=== PATIENT | male | born 1960 | race Caucasian/White ===

== ENCOUNTER 2019-03-25 16:44 | Observation (INO) | payer MEDICAID, SELFPAY ==
[2019-03-25 16:45] VITALS: BP 159/116; PULSE 112; RESP 17; TEMP 36.9; O2SAT 96; BMI 28.1
--- NOTE | 2019-03-25 17:16 | CT_ITS ---
STUDY: CT ABDOMEN AND PELVIS WITHOUT CONTRAST REASON FOR EXAM: Male, 58 years old. Lower GI bleed x3 days. RADIATION DOSAGE (If Supplied By Facility): CTDIvol = ( 14.79 ) mGy, DLP = ( 1030.08 ) mGycm TECHNIQUE: Transaxial images were obtained from the dome of the diaphragm to the symphysis pubis without oral contrast, and without intravenous contrast. Sagittal and coronal images were reconstructed. Individualized dose optimization techniques were used for this CT. COMPARISON: None. FINDINGS: There is a 5.4 mm nodule within the right lower lobe. The visualized portions of the heart are within normal limits. There is decreased attenuation of the liver consistent with steatosis. Normal gallbladder and extrahepatic biliary system. Normal spleen. Normal pancreas. Normal bilateral adrenal glands. There are punctate calcification within the kidneys which may reflect underlying nonobstructing calculi and/or vascular calcifications. Normal visualized stomach. There appears to be a duodenal diverticulum. There is circumferential wall thickening of the colon. There are scattered diverticula throughout the colon visualized. The appendix is visualized and appears normal. There is diffuse atherosclerotic calcification of the abdominal aorta, without a demonstrated aneurysm. Normal inferior vena cava. Normal retroperitoneum. Normal urinary bladder. There is a small umbilical hernia containing fat. There are diffuse degenerative changes of the visualized lumbar spine. There are postsurgical changes from L4 through L5. There is a grade 1 anterior spondylolisthesis of L3 on L4. CT/Abdomen/Pelvis W IV Cont ONLY IMPRESSION: Circumferential wall thickening of the sigmoid colon, the differential includes a neoplastic process and/or inflammation. Colonic diverticulosis. Atherosclerosis. Fatty infiltration of the liver. Fat-containing umbilical hernia. 5.4 mm right lower lobe pulmonary nodule. Electronically Signed: Kenisha Patel MD at 18:48 EST Tel , Service support ,
--- NOTE | 2019-03-25 17:17 | ED.DCSUM_ITS ---
History of Present Illness Chief Complaint: GI Bleed Informant: Patient - Abdominal Pain/Flank Pain Onset: Today Context: Sudden Onset Timing: Intermittent - x3 Location: - - no pain. rectal bleeding. Current Severity: Gone Maximum Severity: Severe - bleeding Worsened by: Nothing Relieved by: Nothing - Nausea/Vomiting/Emesis GI Symptom: Negative for: Nausea, Vomiting - Diarrhea/Melena/Hematochezia GI Symptom: Hematochezia. Negative for: Diarrhea, Melena Stool Quality: Maroon Severity: Severe Episodes: 3 Associated Symptoms: - - fatigue. no lightheadedness/near-syncope.. Negative for: Dysuria, Frequency, Hematuria, Urgency Narrative: Patient does not see a physician and has never had a colonoscopy. He presents with 3 episodes of large amounts of bright red blood per rectum today and feeling malaised. Denies any abdominal pain, nausea, vomiting, chest discomfort, dyspnea. No recent injuries. No history of any abdominal surgeries. Prior similar symptoms: No Past Medical History - Allergies and Home Meds Allergies/Adverse Reactions: Allergies No Known Allergies Allergy (Verified 03/25/19 16:45) Primary Care Physician: Care Physician,No Primary [Primary Care Provider] - Surgical History: - - Knee arthroscopy. Back. Lives: Alone Smoking Status: Current every day smoker Drugs: None Review of Systems General: Reports: Malaise. Denies: Chills, Fever, Sweats Eyes: Denies: Visual changes - bilaterally, Diplopia ENT: Denies: Rhinorrhea, Sore throat Cardiovascular: Denies: Chest pain, Palpitations Respiratory: Denies: Dyspnea, Cough, Dyspnea on exertion Gastrointestinal: Reports: Hematochezia. Denies: Abdominal pain, Nausea, Vomiting, Diarrhea, Melena Genitourinary: Denies: Dysuria, Hematuria, Frequency Musculoskeletal: Denies: Neck pain, Back pain, Extremity Pain Skin: Denies: Rash, Wounds Neurological: Denies: Headache, Weakness, Numbness Physical Exam Vital Signs/Narrative: Vital Signs Temp Pulse Resp BP Pulse Ox 03/25/19 16:45 98.5 F 112 H 17 159/116 H 96 Inital Vital Signs reviewed: Yes General: Well nourished, Well developed, No Acute Distress Head: Normocephalic, Atraumatic Eyes: Perrl, EOMI ENT: Moist mucous membranes, No rhinorrhea Neck: Supple, Nontender Cardiovascular: Regular rate, Regular rhythm, No murmurs, Tachycardia Respiratory: No distress, CTA bilaterally, Chest nontender Abdomen: Soft, Nontender, Nondistended, Normal bowel sounds, No masses. Negative for: Pulsatile mass Rectal: Nontender, - - trace blood present on exam, no pooling Back: Nontender, Normal Inspection. Negative for: CVA tenderness Extremities: Nontender, No edema Skin: Normal color, No rash, No Trauma Neurological: Alert, Oriented x3, Cranial nerves II-XII grossly intact, Normal Strength, Normal Sensation, Normal Gait Psychological: Normal affect, Normal Mood Diagnostic/Tx/Re-eval Impressions Abdomen/Pelvis CT 03/25/19 17:16 IMPRESSION: Circumferential wall thickening of the sigmoid colon, the differential includes a neoplastic process and/or inflammation. Colonic diverticulosis. Atherosclerosis. Fatty infiltration of the liver. Fat-containing umbilical hernia. 5.4 mm right lower lobe pulmonary nodule. Electronically Signed: Kenisha Patel MD at 18:48 EST Tel , Service support , 03/25/19 17:16 Abdomen/Pelvis W IV Cont ONLY [CT] Stat Laboratory Results 03/25/19 03/25/19 03/25/19 17:10 17:10 17:10 WBC 7.0 RBC 4.95 Hgb 17.5 H Hct 48.8 MCV 98.6 H MCH 35.4 H MCHC 35.9 RDW Std Deviation 50.7 H RDW Coeff of Harinder 13.8 Plt Count 319 MPV 8.7 Immature Gran % (Auto) 0.600 Neut % (Auto) 72.1 H Lymph % (Auto) 17.4 L [place] % (Auto) 7.2 Eos % (Auto) 1.7 Baso % (Auto) 1.0 Absolute Neuts (auto) 5.0 Absolute Lymphs (auto) 1.21 Nucleated RBC % 0 Sodium 143 Potassium 2.4 L* Chloride 103 Carbon Dioxide 31.0 Anion Gap 9 BUN 7 Creatinine 0.62 L Estim Creat Clear Calc 128.29 Est GFR (MDRD) Af Amer 172 Est GFR (MDRD) Non-Af 142 BUN/Creatinine Ratio 11.3 Glucose 109 H Calcium 8.5 Total Bilirubin 0.60 AST 30 ALT 18 Alkaline Phosphatase 82 Total Protein 6.9 Albumin 3.3 Globulin 3.6 Albumin/Globulin Ratio 0.9 Blood Type O POSITIVE Antibody Screen NEGATIVE - Medical Decision Making On exam patient is not pooling or actively bleeding. He had a couple episodes of going to the bathroom and having more bright red blood per rectum while in the emergency department. However his hemoglobin is in the 17s, he is still tachycardic. He is very hypokalemic this may be explaining his fatigue which he states is been present for days to a week or so, he is not exactly sure but it has been very gradual. CT shows some type of process in the sigmoid colon creating the appearance of wall thickening. Unable to rule out malignancy. I discussed with Dr. Saavedra who was on-call for surgery since we do not have gastroenterology, she is agreeable to see the patient in the morning. Hospitalist is agreeable to admit. Potassium replacement begun. ED Disposition - Plan for ED Patient: Disposition: Acute Care [facility] Diagnosis: Lower GI bleeding, Hypokalemia
[2019-03-25] MEDS: 0.9% Normal Saline 1,000 ML 1000 ML IV (17:34)
[2019-03-25 17:41] LABS: Absolute Lymphocyte Count 1.21 X10^3/uL (0.83-4.51); Basophil# 0.07 X10^3/uL; Eosinophil# 0.12 X10^3/uL; Eosinophils% 1.7 % (0-5); Hematocrit 48.8 % (40-54); Hemoglobin 17.5 g/dL (13.0-16.5); Lymphocyte # 1.21 X10^3/ul (4.0); Lymphocyte % 17.4 % (19-41); Mean Corp Hgb Conc 35.9 g/dL (32-36); Mean Corpuscular Hgb 35.4 pg (27.0-32.0); Mean Corpuscular Volume 98.6 fL (80-94); Mean Platelet Vol. 8.7 fl (6.2-12.0); Monocyte% 7.2 % (0-10); NRBC Flagged by Analyzer 0 % (0-5); Neutrophil # 5.03 X10^3/uL (2.7-7.7); Neutrophil % 72.1 % (47-70); Platelet Count 319 K/mm3 (150-450); RBC Distribution Width CV 13.8 % (11.6-14.6); RBC Distribution Width SD 50.7 fl (35.1-43.9); Red Blood Count 4.95 M/mm3 (4.6-6.2)
[2019-03-25 18:10] LABS: ALB/GLOB Ratio 0.9 RATIO (0.9-2.4); AST(SGOT) 30 U/L (15-37); Alanine Aminotransfer ALT/SGPT 18 U/L (16-61); Albumin, Serum 3.3 g/dL (3.2-5.0); Alkaline Phosphatase 82 U/L (45-117); Anion Gap 9 (5-15); BUN 7 mg/dL (7-18); BUN/Creat Ratio 11.3 RATIO (10-20); Calcium,Total 8.5 mg/dL (8.5-10.1); Chloride 103 mmol/L (98-107); Creatinine, Serum 0.62 mg/dL (0.70-1.30); EST Glomerular Filtration Rate 142 mL/min (>60); Est Glom Filt Rate - Afr Amer 172 mL/min (>60); Estimated Creatinine Clearance 128.29 ml/min; Globulin 3.6 g/dL (2.2-4.2); Glucose 109 mg/dL (74-106); Potassium 2.4 mmol/L (3.5-5.1); Protein, Total 6.9 g/dL (6.4-8.2); Sodium Level 143 mmol/L (136-145)
--- NOTE | 2019-03-25 19:14 | PCM.HP.STD ---
Problem List (1) BRBPR (bright red blood per rectum) Status: Acute History of Present Illness Date of Admission: 03/25/19 Chief Complaint: Bright red blood per rectum. The patient is a 58 year old M with a significant history of chronic back pain; alcoholism and GERD who presented to emergency department with bright red blood per rectum. At the time of examination patient had had 5 bloody bowel movement. He denies any abdominal pain; nausea; vomiting or loss of appetite. He reports fatigue. However he denies any lightheadedness or dizziness. Emergent department doctor reported that rectal examination showed gross blood. Emergency Department doctor discussed the case with Dr. Fozia Saavedra, general surgeon who agreed to follow patient. Of note patient reports taking about 6 tablets of aspirin daily because of back pain Past Medical History Medical History: Medical History (Last Reviewed 03/25/19 @ 20:35 by Clarence Dorado MD) Chronic back pain M54.9, G89.29 Allergies No Known Allergies Allergy (Verified 03/25/19 16:45) Home Medications: Ambulatory Orders Medication Instructions Recorded Aspirin 325 mg PO DAILY 03/25/19 Ranitidine [Zantac] 150 mg PO DAILY PRN 03/25/19 Surgical History: - - Knee arthroscopy. Back. Lives: Alone Smoking Status: Current every day smoker Alcohol: Heavy Drugs: None - *Family History Maternal History Items: Diabetes Paternal History Items: Cancer - His father had lung cancer Review of Systems Constitutional: Reports: Fatigue. Denies: Chills, Fever, Weight Change HEENT: Denies: Head Aches, Sinus Congestion, Sinus Drainage Cardiovascular: Denies: Chest Pain, Palpitations Respiratory: Denies: Cough, Shortness of breath at rest, Sputum production Gastrointestinal: Reports: Hematochezia. Denies: Abdominal Pain, Nausea, Vomiting Genitourinary: Denies: Dysuria Musculoskeletal: Denies: Joint Pain, Joint Tenderness Skin: Denies: Rash, Wounds Neurological: Denies: Numbness, Tingling, Focal weakness Psychiatric: Denies: Anxiety, Depression, Homicidal Ideations, Suicidal Ideations Hematologic/ Lymphatic: Denies: Easy Bruising, Easy Bleeding VTE Information - Inpt Only VTE Present on Admission: No VTE Mechan Device Prophylaxis: SCD's VTE Pharm Prophylaxis ordered?: No Patient Problems: Active and Suspected Problems (Last Reviewed 03/25/19 @ 20:35 by Clarence Dorado MD) Lower GI bleeding (Acute) Hypokalemia (Acute) BRBPR (bright red blood per rectum) (Acute) - Physical Exam Vitals/I&O's: Vital Signs Temp Pulse Resp BP Pulse Ox 98.5 F 112 H 17 159/116 H 96 03/25/19 16:45 03/25/19 16:45 03/25/19 16:45 03/25/19 16:45 03/25/19 16:45 Oxygen Delivery Method Room Air Weight: 86.4 kg Body Mass Index (BMI) 28.1 General: Alert, Oriented x3, Cooperative HEENT: Atraumatic, PERRLA, EOMI, Normocephalic Neck: Supple, No JVD, Negative Carotid Bruits Lungs: Clear to auscultation, Normal air movement Cardiovascular: Regular rate, Normal S1, Normal S2, No murmurs Abdomen: Bowel Sounds Present, Soft, Non Tender, - - Emergency department doctor reports gross blood on rectal examination. Extremities: No edema, Capillary Refill Less than 3 Seconds Skin: No rashes, No breakdown Musculoskeletal: No Tenderness to Palpation of Joints or Extremities Neurological: Cranial nerves II-XII grossly intact, - - Tremors. Psych/Mental Status: Normal Affect, Appropriate Laboratory Results 03/25/19 17:10: WBC 7.0, RBC 4.95, Hgb 17.5 H, Hct 48.8, MCV 98.6 H, MCH 35.4 H, MCHC 35.9, RDW Std Deviation 50.7 H, RDW Coeff of Harinder 13.8, Plt Count 319, MPV 8.7, Immature Gran % (Auto) 0.600, Neut % (Auto) 72.1 H, Lymph % (Auto) 17.4 L, [place] % (Auto) 7.2, Eos % (Auto) 1.7, Baso % (Auto) 1.0, Absolute Neuts (auto) 5.0, Absolute Lymphs (auto) 1.21, Nucleated RBC % 0 03/25/19 17:10: Sodium 143, Potassium 2.4 L*, Chloride 103, Carbon Dioxide 31.0, Anion Gap 9, BUN 7, Creatinine 0.62 L, Estim Creat Clear Calc 128.29, Est GFR (MDRD) Af Amer 172, Est GFR (MDRD) Non-Af 142, BUN/Creatinine Ratio 11.3, Glucose 109 H, Calcium 8.5, Total Bilirubin 0.60, AST 30, ALT 18, Alkaline Phosphatase 82, Total Protein 6.9, Albumin 3.3, Globulin 3.6, Albumin/Globulin Ratio 0.9 03/25/19 17:10: Blood Type O POSITIVE, Antibody Screen NEGATIVE Current Medications Potassium Chloride () 10 meq in 100 mls @ 100 mls/hr IV BOLUS NOW STA Stop: 03/25/19 19:27 Assessment/Plan All Active Problems (Last Reviewed 03/25/19 @ 20:35 by Clarence Dorado MD) Lower GI bleeding (Acute) Hypokalemia (Acute) BRBPR (bright red blood per rectum) (Acute) The patient is a 58 year old M with a significant history of chronic back pain; alcoholism and GERD who presented to emergency department with bright red blood per rectum consistent with acute GI bleed. Acute GI bleed Likely lower GI bleed as CT of his abdomen and pelvis showed colonic diverticulosis and circumferential wall thickening concerning for neoplastic process and or/inflammation. His BUN is not elevated as is typical of upper GI bleed and his blood pressure is stable. However because of his history of aspirin use cannot rule out upper GI bleed entirely. We will put patient on Protonix IV twice daily. More likely lower GI bleed with aspirin accentuating the bleeding. Received IV fluid bolus in the emergency department. We will continue IV hydration. Avoid antiplatelets and antithrombotics. Note his hemoglobin on admission was 17.5. We will get serial H&H's and see what his hemoglobin becomes with equilibration. Hypokalemia Etiology is unclear but suspect alcoholism. Will check magnesium level. Potassium chloride 10 mEq was ordered at the emergency department. We will give additional 60 mEq p.o.; and additional 30 mEq IV. Trend BMP. Check urine potassium. Alcoholism Reportedly patient drinks half of a fifth of bourbon about 5 times in a week. Tremulous at the emergency department. We will put patient on CIWA protocol with Ativan. Patient is being kept n.p.o. after midnight for possible endoscopic procedures for his bright red blood per rectum. Will order folic acid IV daily. Multivitamin IV x1 ordered. IV thiamine daily Pulmonary nodule CT of abdomen and pelvis showed a subcentimeter pulmonary nodule. Of note patient is a smoker. Discussed with patient. Recommend longitudinal follow-up. DVT Prophylaxis SCD Code Visit Inpatient E&M: 83433 Init Hosp L3
[2019-03-25] MEDS: Potassium Chloride 10mEq/100mL 10 MEQ/100 ML IV.SOLN. 100 MEQ IV BOLUS ×3 (19:15→23:17)
[2019-03-25 19:23] VITALS: BMI 28.1
[2019-03-25 19:23] LABS: Bacteria 0 SEEN /hpf (None Seen); Mucous, Urine 0 SEEN /hpf (<or=2+); Red Blood Cells-Urine 0 SEEN /hpf (0-5); Squamous Epithelial Cells - UA 0 SEEN /hpf (0-5); White Blood Cells 0 SEEN /hpf (0-5)
[2019-03-25 19:49] VITALS: BMI 27.8
[2019-03-25 19:55] LABS: Color, Urine Yellow (Yellow); Glucose, Dipstick Normal (Normal); Ketone-Dipstick 15 mg/dl (Negative); Leukocyte Esterase-Dipstick Negative /ul (Negative); Nitrite-Dipstick Negative (Negative); Occult Blood-Urine Negative /ul (Negative); Protein-Dipstick Negative (Negative); Specific Gravity, Urine 1.005 (1.002-1.030); Urine Bilirubin Dipstick Negative (Negative); Urine Clarity Clear (Clear); Urine Urobilinogen Normal (Normal)
[2019-03-25 20:14] VITALS: BP 151/109; PULSE 94; RESP 20; TEMP 36.9; O2SAT 95
[2019-03-25 20:19] VITALS: BP 180/108
[2019-03-25 20:39] LABS: Magnesium 1.6 mg/dL (1.6-2.6)
[2019-03-25 20:45] VITALS: PULSE 99
[2019-03-25] MEDS: 0.9% Saline Lock 10 ML Syringe IV (21:33)
[2019-03-25] MEDS: 0.9% Normal Saline 1,000 ML 100 ML IV (21:34)
[2019-03-25 21:53] LABS: Hematocrit 42.7 % (40-54); Hemoglobin 15.4 g/dL (13.0-16.5)
[2019-03-26] VITALS (10 sets, daily range): BP systolic 137–178; BP diastolic 96–113; PULSE 70–89; RESP 16–20; TEMP 36.7–36.9; O2SAT 94–96
[2019-03-26] MEDS: Potassium Chloride 10mEq/100mL 10 MEQ/100 ML IV.SOLN. 100 MEQ IV BOLUS ×5 (00:31→09:56)
[2019-03-26] MEDS: 0.9% Saline Lock 10 ML Syringe IV ×2 (03:32→12:20)
[2019-03-26] MEDS: Labetalol 20 MG/4 ML Vial 10 MG IV (03:32)
[2019-03-26 03:58] LABS: Hematocrit 41.7 % (40-54); Hemoglobin 14.6 g/dL (13.0-16.5)
[2019-03-26 04:07] LABS: International Normalized Ratio 1.1; Prothrombin Time (Protime)PT. 13.7 SECONDS (11.7-14.9)
[2019-03-26 04:12] LABS: Anion Gap 7 (5-15); BUN 4 mg/dL (7-18); Calcium,Total 7.5 mg/dL (8.5-10.1); Chloride 105 mmol/L (98-107); Creatinine, Serum 0.57 mg/dL (0.70-1.30); EST Glomerular Filtration Rate 154 mL/min (>60); Est Glom Filt Rate - Afr Amer 186 mL/min (>60); Estimated Creatinine Clearance 139.54 ml/min; Glucose 91 mg/dL (74-106); Sodium Level 145 mmol/L (136-145)
[2019-03-26] MEDS: Magnesium Sulfate 4gm/100mL 4 GM/100 ML IV.SOLN. IV (05:25)
[2019-03-26] MEDS: Potassium Chloride 40 MEQ in 0.9% Normal Saline 1,000 ML 100 MEQ IV (05:33)
[2019-03-26] MEDS: Glycerin/Hypromellose/PEG400 15 ml Bottle 1 DRP EACH EYE ×2 (06:02→08:05)
--- NOTE | 2019-03-26 10:05 | NURSING ---
Surgeon, in to see pt, daughter bedside during conversation
--- NOTE | 2019-03-26 10:14 | PCM.CONS.B ---
- Consult Date of Consult: 03/26/19 - Reason for Consult Chief Complaint: rectal bleeding History of Present Illness: 58 y/o WM presents with rectal bleeding - sudden onset yesterday - states no previous such signs/symptoms. Denies previous colonoscopy. Noted dark and bright red blood per rectum, multiple episodes yesterday. Only one since admission. Hgb 17.5 - 15.4 - 14.6 during hospitalization and patient has remained hemodynamically stable since admission. Has been taking 3-4 full aspirins per day for chronic back pain. States that he takes an OTC antacid occasionally. He had history of acid indigestion and dyspepsia, but he states that he has had no symptoms recently. Also drinks half a bottle of hard liquor per day. Also TOB user. Denies family history of colon cancer. Has no family physician Past Medical History: denies major medical illnesses Past Surgical History: cervical vertebral surgery lumbar vertebral surgery right knee surgery Medications: as above, denies taking chronic medications Allergies: Has no known drug allergies Social history: TOB use positive ETOH use heavy daily use Denies illicit drug use Review of Systems: General - denies fevers, denies weight loss, denies anorexia Cardiovascular denies chest pain, denies history of heart attack Pulmonary denies shortness of breath, denies coughing up blood Gastrointestinal as per HPI, had history of acid indigestion and heartburn but none recently Neurological denies seizures, denies history of stroke Genitourinary denies burning with urination, denies blood in urine Hematological denies spontaneous/prolonged bleeding Skin denies open non healing wounds Musculoskeletal has chronic back pain Endocrine denies diabetes Psychological denies hallucinations Physical examination: Vital signs Temp 98.3F RR 16 BP 154/105 HR 78 General WD/WN WM in no apparent distress, alert and oriented, not septic appearing HEENT Normocephalic. EOM intact with sclera clear and no icterus noted. Neck is supple with no jugular venous distention noted. Trachea is midline. Lungs normal breath sounds. No rales/rhonchi/wheezing noted. No labored breathing noted, such as retractions. No cough heard. Heart normal heart sounds. No rubs/clicks/murmurs noted. Normal size and location by auscultation. Abdomen soft and benign and protuberant Normal bowel sounds. Difficult to determine if any masses due to body habitus Extremities no calf tenderness noted. No pitting edema noted. Genitourinary/Rectal deferred Skin normal skin integrity. Neurological gait normal, no focal deficits noted. Psychological normal affect, patient is calm and appropriate Impression: rectal bleeding TOB use, ETOH use, aspirin use - heavy use Discussion/Plan: I have discussed the above with the patient and his daughter who is present with him. He is presently hemodynamically stable. He has had no repeated episodes of rectal bleeding since being hospitalized. Repeated CBC reveals that he is not anemic. Therefore GI workup can be done as outpatient. He will require upper and lower endoscopy. He can follow up in my clinic as an outpatient to set this up. Patient can be discharged - in my opinion Recommend discontinuation of aspirin. Recommend cessation of TOB use and ETOH use Prescription for PPI to be given by hospitalist.
--- NOTE | 2019-03-26 11:07 | DCINST_ITS ---
- Discharge Diagnoses Current Active Problems: Current Active and Chronic Problems (Last Reviewed 03/25/19 @ 20:35 by Clarence Dorado MD) Lower GI bleeding (Acute) Hypokalemia (Acute) BRBPR (bright red blood per rectum) (Acute) You will use the following diet at home:: Regular Your food should be the consistency of: Regular Discharge Activity: May Not Drive Call your doctor if you observe: Fever of 101 or Higher, Numbness or Tingling, Inability to urinate, Inability to have a bowel movement, Shortness of breath, Dizziness, Fainting spells, Swelling in the ankles, Chest pain, Increased palpitations (irregular heartbeat), Calf discomfort, Uncontrolled pain Allergies/Adverse Reactions: Allergies No Known Allergies Allergy (Verified 03/25/19 16:45) Medications to take at Discharge Folic Acid 1 mg PO DAILY #30 tab 03/26/19 Pantoprazole Sodium [Protonix] 40 mg PO BID #60 tab 03/26/19 Potassium Chloride [K-Dur] 20 meq PO DAILY #3 tab 03/26/19 Thiamine HCl [B-1] 100 mg PO DAILY #30 tab 03/26/19 traMADol [Ultram] 50 mg PO Q4H PRN PRN #14 tab 03/26/19 The following prescriptions were given: Thiamine HCl [B-1] 100 mg PO DAILY #30 tab Transmission Status: Received by [address] Folic Acid 1 mg PO DAILY #30 tab Transmission Status: Received by [address] Potassium Chloride [K-Dur] 20 meq PO DAILY #3 tab Transmission Status: Pending to [address] Pantoprazole Sodium [Protonix] 40 mg PO BID #60 tab Transmission Status: Received by [address] traMADol [Ultram] 50 mg PO Q4H PRN PRN #14 tab PRN Reason: severe pain Prescription Printed Orders to be completed after discharge: Basic Metabolic Profile (BMP) Time Frame: 03/28/19, Location: Laboratory Primary Care Physician: Care Physician,No Primary [Primary Care Provider] - Please follow up with your Primary Care Physician in: 1-2 week Test Results: Test results from this visit will be discussed in further detail at your follow- up appointment, if applicable. Please Follow Up With: Fozia Saavedra MD - Follow-up BMP on 03/28/2019 for When: on 03/28/19 to scheule EGD and colonoscopy.
--- NOTE | 2019-03-26 11:11 | DS.PCM_ITS ---
Discharge Date and Diagnosis - Problem List Patient Problems: Active and Suspected Problems (Last Reviewed 03/25/19 @ 20:35 by Clarence Dorado MD) Lower GI bleeding (Acute) Hypokalemia (Acute) BRBPR (bright red blood per rectum) (Acute) Date of Admission: 03/25/19 Date of Discharge: 03/26/19 - Primary Discharge Diagnosis Active and Suspected Problems (Last Reviewed 03/25/19 @ 20:35 by Clarence Dorado MD) Lower GI bleeding (Acute) Hypokalemia (Acute) BRBPR (bright red blood per rectum) (Acute) Hospital Course and Treatment Summary of Care Provided: [] The patient is a 58 year old M with a significant history of chronic back pain on aspirin; alcoholism and GERD who presented to emergency department with bright red blood per rectum consistent with acute GI bleed. Patient is also chronic alcoholic on her bottle of whiskey daily for many years therefore concern for upper GI bleed with rapid transit. Patient also has chronic symptoms of dyspepsia and GERD and was taking poge-gqh-fjikwxf Maalox since teenage. Patient admitting H&H was 17.5/48.8 suggestive of hemoconcentration patient is chronic smoker therefore concern of possible COPD. Patient also hypokalemic. K2.4. CT abdomen was done and shows circumferential wall thickening of sigmoid colon which raises suspicion of inflammation or neoplastic process along with colonic diverticulosis. Denies family history of colon cancer patient was admitted in PCU. Was seen by surgeon Dr. Saavedra, He had subsequent H&H which was a stable 15.4/42.7 and 15.6/44.4. Potassium was corrected to 3.1. Magnesium normal. Patient was started on IV Protonix every 12 hourly. Surgeon thinks he is GI work-up can be done as an outpatient. Will require upper and lower endoscopy. Aspirin discontinued. CT abdomen pelvis also shows 5.4 mm right lower lobe pulmonary nodule. Patient is chronic cigarette smoker and advised quitting smoking. Patient needs outpatient PFT and pulmonary clinic visit for this further green rveillance of pulmonary nodule. Patient might have COPD for history of prolonged smoking. Patient also has chronic back pain for which she was taking aspirin which is discontinued. Patient had 1 dose of oxycodone 5 mg inpatient. Patient is being discharged home on Protonix 40 mg twice daily, tramadol 50 mill grams every 4 hourly as needed, total of 14 tablets for chronic back and neck pain, thiamine, folic acid and caregiver. Discharge diagnosis Acute GI bleed possible upper GI bleed Possible gastritis/peptic ulcer with GERD Hypokalemia Chronic alcoholism Right lower lobe pulmonary nodule: Pulmonary nodule was discussed with the patient and advised follow-up with pulmonary clinic. Chronic neck and back pain Discharge medication reconciliation done. Discharge follow-up instructions comp leted. Discharge process discussed with the patient and all questions were answered to patient's satisfaction. Follow-up with surgeon Dr. Saavedra early next week. Follow with pulmonary clinic in about 2 weeks. Total time spent, exact 35 minutes on discharge meds reconciliation, examination, review of imaging and blood test and discussion with the patient on follow-up instructions. Clinical Impression(s) from Imaging Studies Abdomen/Pelvis CT 03/25/19 17:16 IMPRESSION: Circumferential wall thickening of the sigmoid colon, the differential includes a neoplastic process and/or inflammation. Colonic diverticulosis. Atherosclerosis. Fatty infiltration of the liver. Fat-containing umbilical hernia. 5.4 mm right lower lobe pulmonary nodule. Laboratory Results 03/25/19 17:10: WBC 7.0, RBC 4.95, Hgb 17.5 H, Hct 48.8, MCV 98.6 H, MCH 35.4 H, MCHC 35.9, RDW Std Deviation 50.7 H, RDW Coeff of Harinder 13.8, Plt Count 319, MPV 8.7, Immature Gran % (Auto) 0.600, Neut % (Auto) 72.1 H, Lymph % (Auto) 17.4 L, Roseau % (Auto) 7.2, Eos % (Auto) 1.7, Baso % (Auto) 1.0, Absolute Neuts (auto) 5.0, Absolute Lymphs (auto) 1.21, Nucleated RBC % 0 03/25/19 17:10: Sodium 143, Potassium 2.4 L*, Chloride 103, Carbon Dioxide 31.0, Anion Gap 9, BUN 7, Creatinine 0.62 L, Estim Creat Clear Calc 128.29, Est GFR (MDRD) Af Amer 172, Est GFR (MDRD) Non-Af 142, BUN/Creatinine Ratio 11.3, Glucose 109 H, Calcium 8.5, Total Bilirubin 0.60, AST 30, ALT 18, Alkaline Phosphatase 82, Total Protein 6.9, Albumin 3.3, Globulin 3.6, Albumin/Globulin Ratio 0.9 03/26/19 03:46: Sodium 145, Potassium 3.0 L, Chloride 105, Carbon Dioxide 33.0 H , Anion Gap 7, BUN 4 L, Creatinine 0.57 L, Estim Creat Clear Calc 139.54, Est GFR (MDRD) Af Amer 186, Est GFR (MDRD) Non-Af 154, BUN/Creatinine Ratio 7.0 L, Glucose 91, Calcium 7.5 L 03/26/19 12:16: Sodium 141, Potassium 3.1 L, Chloride 104, Carbon Dioxide 30.0, Anion Gap 7, BUN 3 L, Creatinine 0.52 L, Estim Creat Clear Calc 152.96, Est GFR (MDRD) Af Amer 211, Est GFR (MDRD) Non-Af 175, BUN/Creatinine Ratio 5.8 L, Glucose 95, Calcium 7.6 L 03/26/19 12:16: WBC 5.6, RBC 4.40 L, Hgb 15.6, Hct 44.4, MCV 100.9 H, MCH 35.5 H , MCHC 35.1, RDW Std Deviation 51.8 H, RDW Coeff of Harinder 13.8, Plt Count 281, MPV 8.7, Immature Gran % (Auto) 0.500, Neut % (Auto) 63.2, Lymph % (Auto) 22.6, Roseau % (Auto) 9.0, Eos % (Auto) 3.8, Baso % (Auto) 0.9, Absolute Neuts (auto) 3.5, Absolute Lymphs (auto) 1.26, Nucleated RBC % 0 03/26/19 12:16: Magnesium 2.3 Patient Problems: Active and Suspected Problems (Last Reviewed 03/25/19 @ 20:35 by Clarence Dorado MD) Lower GI bleeding (Acute) Hypokalemia (Acute) BRBPR (bright red blood per rectum) (Acute) Subjective: Seen and examined. Patient has history of chronic back pain and neck pain and he was taking aspirin at home for pain control. Patient also drinks alcohol half bottle of bourbon whiskey for many years. He was admitted with bright red rectal bleed about 4-5 times prior to admission. Overnight this got cleared last one was noticed brownish. Patient is hemodynamically stable - Physical Exam Vitals/I&O's: Vital Signs Temp Pulse Resp BP Pulse Ox 98.0 F 82 16 138/101 H 95 03/26/19 08:08 03/26/19 08:08 03/26/19 08:08 03/26/19 08:08 03/26/19 08:08 Oxygen Delivery Method Room Air Weight: 188 lb 7.924 oz Body Mass Index (BMI) 27.8 Intake and Output for Last 24 Hours 03/24/19 03/25/19 03/26/19 23:59 23:59 23:59 Intake Total 1897.16 / 1897.16 1182.67 / 1182.67 Balance 1897.16 / 1897.16 1182.67 / 1182.67 General: Alert, Oriented x3, Cooperative HEENT: Atraumatic, PERRLA, EOMI, Normocephalic Neck: Supple, No JVD, Negative Carotid Bruits Lungs: Clear to auscultation, Normal air movement Cardiovascular: Regular rate, Regular Rhythm, Normal S1, Normal S2, No murmurs Abdomen: Bowel Sounds Present, Soft, Non Tender, Non-Distended Extremities: No edema, Capillary Refill Less than 3 Seconds Skin: No rashes, No breakdown Musculoskeletal: Arthritic Changes, Tenderness - Tenderness over cervical spine and lumbar spine. Neurological: Cranial nerves II-XII grossly intact, Deep Tendon Reflexes 2+/4 and Symmetrical, Neuro grossly intact, Motor Exam 5/5 strength throughout Psych/Mental Status: Normal Affect, Appropriate Laboratory Results 03/25/19 17:10: WBC 7.0, RBC 4.95, Hgb 17.5 H, Hct 48.8, MCV 98.6 H, MCH 35.4 H, MCHC 35.9, RDW Std Deviation 50.7 H, RDW Coeff of Harinder 13.8, Plt Count 319, MPV 8.7, Immature Gran % (Auto) 0.600, Neut % (Auto) 72.1 H, Lymph % (Auto) 17.4 L, Roseau % (Auto) 7.2, Eos % (Auto) 1.7, Baso % (Auto) 1.0, Absolute Neuts (auto) 5.0, Absolute Lymphs (auto) 1.21, Nucleated RBC % 0 03/25/19 17:10: Sodium 143, Potassium 2.4 L*, Chloride 103, Carbon Dioxide 31.0, Anion Gap 9, BUN 7, Creatinine 0.62 L, Estim Creat Clear Calc 128.29, Est GFR (MDRD) Af Amer 172, Est GFR (MDRD) Non-Af 142, BUN/Creatinine Ratio 11.3, Glucose 109 H, Calcium 8.5, Total Bilirubin 0.60, AST 30, ALT 18, Alkaline Phosphatase 82, Total Protein 6.9, Albumin 3.3, Globulin 3.6, Albumin/Globulin Ratio 0.9 03/25/19 17:10: Blood Type O POSITIVE, Antibody Screen NEGATIVE 03/25/19 17:10: Magnesium 1.6 03/25/19 19:20: Urine Color Yellow, Urine Clarity Clear, Urine pH 7.0, Ur Specific Lamar 1.005, Urine Protein Negative, Urine Glucose (UA) Normal, Urine Ketones 15 H, Urine Occult Blood Negative, Urine Nitrite Negative, Urine Bilirubin Negative, Urine Urobilinogen Normal, Ur Leukocyte Esterase Negative, Urine RBC 0 SEEN, Urine WBC 0 SEEN, Ur Squamous Epith Cells 0 SEEN, Urine Bacteria 0 SEEN, Urine Mucus 0 SEEN 03/25/19 21:44: Hgb 15.4, Hct 42.7 03/26/19 03:46: Hgb 14.6, Hct 41.7 03/26/19 03:46: PT 13.7, INR 1.1 03/26/19 03:46: Sodium 145, Potassium 3.0 L, Chloride 105, Carbon Dioxide 33.0 H , Anion Gap 7, BUN 4 L, Creatinine 0.57 L, Estim Creat Clear Calc 139.54, Est GFR (MDRD) Af Amer 186, Est GFR (MDRD) Non-Af 154, BUN/Creatinine Ratio 7.0 L, Glucose 91, Calcium 7.5 L Current Medications Dextrose (D50w Syringe) 0 gm IV X1 PRN; Protocol PRN Reason: Hypoglycemia Glucagon () 1 mg IM .X1 PRN PRN Reason: Hypoglycemia Pantoprazole Sodium 40 mg/ (Sodium Chloride) 110 mls @ 330 mls/hr IV Q12 CHRISTIANE Last Admin: 03/26/19 10:13 Dose: 330 mls/hr Documented by: Thiamine HCl 200 mg/ Sodium (Chloride) 52 mls @ 200 mls/hr IV DAILY CHRISTIANE Folic Acid 1 mg/ Sodium (Chloride) 50.2 mls @ 200 mls/hr IV DAILY [facility] Sodium Chloride () 500 mls @ 15 mls/hr IV PRN PRN PRN Reason: Blood Transfusion Last Infusion: 03/26/19 06:45 Dose: 0 mls/hr Documented by: Sodium Chloride () 250 mls @ 15 mls/hr IV .[id number] PRN PRN Reason: Saline Flush Potassium Chloride 40 meq/ (Sodium Chloride) 1,020 mls @ 100 mls/hr IV .[id number] CHRISTIANE Stop: 03/26/19 19:34 Last Infusion: 03/26/19 05:45 Dose: 100 mls/hr Documented by: Labetalol HCl (Trandate) 10 mg IV Q4H PRN PRN PRN Reason: SBP > 160 Last Admin: 03/26/19 03:32 Dose: 10 mg Documented by: Lorazepam (Ativan) 2 mg PO Q2H PRN PRN; Protocol PRN Reason: CIWA score > 8 but <15 Lorazepam (Ativan) 2 mg PO UD PRN; Protocol PRN Reason: CIWA score >/=15. Lorazepam (Ativan) 2 mg IV Q2H PRN PRN; Protocol PRN Reason: CIWA score > 8 but <15 Lorazepam (Ativan) 2 mg IV UD PRN; Protocol PRN Reason: CIWA score >/=15. Ondansetron HCl (Zofran) 4 mg IV Q8H PRN PRN PRN Reason: NAUSEA/VOMITING Sodium Chloride () 10 - 40 ml IV UD PRN PRN Reason: SALINE FLUSH Last Admin: 03/26/19 03:32 Dose: 10 ml Documented by: Discharge Activity: May Not Drive Call your doctor if you observe: Fever of 101 or Higher, Numbness or Tingling, Inability to urinate, Inability to have a bowel movement, Shortness of breath, Dizziness, Fainting spells, Swelling in the ankles, Chest pain, Increased palpitations (irregular heartbeat), Calf discomfort, Uncontrolled pain Home Medications: Medications to take at Discharge Folic Acid 1 mg PO DAILY #30 tab 03/26/19 Pantoprazole Sodium [Protonix] 40 mg PO BID #60 tab 03/26/19 Potassium Chloride [K-Dur] 20 meq PO DAILY #3 tab 03/26/19 Thiamine HCl [B-1] 100 mg PO DAILY #30 tab 03/26/19 traMADol [Ultram] 50 mg PO Q4H PRN PRN #14 tab 03/26/19 Following Prescrptions Were Given to Patient: Thiamine HCl [B-1] 100 mg PO DAILY #30 tab Transmission Status: Received by [facility] [place] [address] Folic Acid 1 mg PO DAILY #30 tab Transmission Status: Received by [facility] [address] [place] [address] Potassium Chloride [K-Dur] 20 meq PO DAILY #3 tab Transmission Status: Pending to [address] Pantoprazole Sodium [Protonix] 40 mg PO BID #60 tab Transmission Status: Received by [facility] [place] [address] traMADol [Ultram] 50 mg PO Q4H PRN PRN #14 tab PRN Reason: severe pain Prescription Printed Other Amb Orders: Basic Metabolic Profile (BMP) Time Frame: 03/28/19, Location: Laboratory Primary Care Physician: Care Physician,No Primary [Primary Care Provider] - Please follow up with your Primary Care Physician in: 1-2 week Please Follow Up With: Fozia Saavedra MD When: on 03/28/19 to scheule EGD and colonoscopy Medical Necessity - Tobacco Use Smoking Status: Current every day smoker Tobacco Use: Cigarettes Meaningful Use Info Meaningful Use Diagnoses (Choose all that apply): None applicable Code Visit Inpatient E&M: 630[address] [facility]
[2019-03-26 12:32] LABS: Absolute Lymphocyte Count 1.26 X10^3/uL (0.83-4.51); Absolute Neutrophil Count 3.5 X10^3/uL (2.0-7.7); Basophil# 0.05 X10^3/uL; Basophil% 0.9 % (0-1); Eosinophil# 0.21 X10^3/uL; Eosinophils% 3.8 % (0-5); Hematocrit 44.4 % (40-54); Hemoglobin 15.6 g/dL (13.0-16.5); Lymphocyte # 1.26 X10^3/ul (4.0); Lymphocyte % 22.6 % (19-41); Mean Corp Hgb Conc 35.1 g/dL (32-36); Mean Corpuscular Hgb 35.5 pg (27.0-32.0); Mean Corpuscular Volume 100.9 fL (80-94); Mean Platelet Vol. 8.7 fl (6.2-12.0); NRBC Flagged by Analyzer 0 % (0-5); Neutrophil # 3.52 X10^3/uL (2.7-7.7); Neutrophil % 63.2 % (47-70); Platelet Count 281 K/mm3 (150-450); RBC Distribution Width CV 13.8 % (11.6-14.6); RBC Distribution Width SD 51.8 fl (35.1-43.9); White Blood Count 5.6 K/mm3 (4.4-11.0)
[2019-03-26] MEDS: oxyCODONE 5 MG Tablet PO (12:52)
[2019-03-26 13:02] LABS: Anion Gap 7 (5-15); BUN 3 mg/dL (7-18); BUN/Creat Ratio 5.8 RATIO (10-20); Calcium,Total 7.6 mg/dL (8.5-10.1); Chloride 104 mmol/L (98-107); Creatinine, Serum 0.52 mg/dL (0.70-1.30); EST Glomerular Filtration Rate 175 mL/min (>60); Est Glom Filt Rate - Afr Amer 211 mL/min (>60); Estimated Creatinine Clearance 152.96 ml/min; Glucose 95 mg/dL (74-106); Magnesium 2.3 mg/dL (1.6-2.6); Potassium 3.1 mmol/L (3.5-5.1); Sodium Level 141 mmol/L (136-145)
--- NOTE | 2019-03-26 14:46 | NURSING ---
Reviewed charting of SN Dolores
== END 2019-03-26 14:55 | disposition home or self-care (01) ==
LOC: ED 19:24 → PCU 20:05
PROVIDERS: Admitting Provider Hospitalist; Emergency Provider Emergency Medicine; Referring Provider Hospitalist; Visit Provider Internal Medicine
DX: K92.2 Gastrointestinal hemorrhage, unspecified (principal); E87.6 Hypokalemia; F10.20 Alcohol dependence, uncomplicated; K21.9 Gastro-esophageal reflux disease without esophagitis; Z79.899 Other long term (current) drug therapy; Z79.82 Long term (current) use of aspirin; F17.210 Nicotine dependence, cigarettes, uncomplicated; R91.1 Solitary pulmonary nodule; G89.29 Other chronic pain
CPT/HCPCS: 36415; 74177; 80048; 80053; 81001; 83735; 85014; 85018; 85025; 85610; 86850; 86900; 86901; 96361; 96365; 96366; 96375; 99218; 99282; 99406; J7030; J7040; Q9967; A4216; G0378; J3490

== ENCOUNTER → 2021-10-23 | Outpatient (CLI) | payer MEDICAID, SELFPAY ==
[2021-10-23 16:08] LABS: Lipase 112 U/L (73-393)
== END | disposition home or self-care (01) ==
LOC: LAB 15:54 → LABSPEC 15:55
PROVIDERS: PCP Registered Nurse; Referring Provider Registered Nurse; Visit Provider Registered Nurse
DX: R10.9 Unspecified abdominal pain (principal)
CPT/HCPCS: 83690

== ENCOUNTER 2021-10-25 17:40 | Observation (INO) | payer MEDICAID, SELFPAY ==
[2021-10-25 17:17] VITALS: BMI 24.0
[2021-10-25 17:24] VITALS: BP 141/85; PULSE 100; RESP 16; TEMP 37.3; O2SAT 97
--- NOTE | 2021-10-25 17:45 | EKG12_ITS ---
Test Reason : PRE OP Blood Pressure : / mmHG Vent. Rate : 088 BPM Atrial Rate : 088 BPM P-R Int : 132 ms QRS Dur : 144 ms QT Int : 408 ms P-R-T Axes : 071 218 040 degrees QTc Int : 493 ms Normal sinus rhythm Right bundle branch block Abnormal ECG No previous ECGs available Confirmed by ASHU STEPHENS, ISABEL ([id number]), society editor DORIS DEMPSEY ([id number]) on 10/28/2021 1:09:14 PM Referred By: Donna Lewis Confirmed By:ISABEL WAKEFIELD MD
--- NOTE | 2021-10-25 17:55 | RAD_ITS ---
INDICATION: PRE OP EXAMINATION/TECHNIQUE: X-RAY - XR Chest 1 View COMPARISON: None. FINDINGS: The lungs are clear. The cardiomediastinal silhouette is unremarkable. No pleural effusion or pneumothorax. Degenerative changes of the thoracic spine. RAD/Chest 1 View (Portable) IMPRESSION: No acute radiographic abnormalities. Electronically Signed: Ananda Robertson MD at 18:54 EDT ,
[2021-10-25] MEDS: 0.9% Saline Lock 10 ML Syringe IV ×2 (18:13→22:06)
[2021-10-25] MEDS: 0.9% Normal Saline 1,000 ML 125 ML IV (18:13)
[2021-10-25] MEDS: Morphine 4 MG/ML Syringe IV ×2 (18:14→22:06)
[2021-10-25 20:02] LABS: Absolute Lymphocyte Count 1.52 X10^3/uL (0.83-4.51); Absolute Neutrophil Count 4.9 X10^3/uL (2.0-7.7); Basophil# 0.05 X10^3/uL; Basophil% 0.7 % (0-1); Eosinophil# 0.11 X10^3/uL; Eosinophils% 1.5 % (0-5); Hematocrit 49.3 % (40-54); Lymphocyte # 1.52 X10^3/ul (0.83-4.51); Lymphocyte % 20.9 % (19-41); Mean Corp Hgb Conc 34.5 g/dL (32-36); Mean Corpuscular Hgb 33.7 pg (27.0-32.0); Mean Corpuscular Volume 97.8 fL (80-94); Mean Platelet Vol. 8.5 fl (6.2-12.0); Monocyte# 0.64 X10^3/uL; Monocyte% 8.8 % (0-10); NRBC Flagged by Analyzer 0 % (0-5); Neutrophil # 4.92 X10^3/uL (2.7-7.7); Neutrophil % 67.4 % (47-70); Platelet Count 351 K/mm3 (150-450); RBC Distribution Width CV 12.8 % (11.6-14.6); RBC Distribution Width SD 46.3 fl (35.1-43.9); Red Blood Count 5.04 M/mm3 (4.6-6.2); White Blood Count 7.3 K/mm3 (4.4-11.0)
[2021-10-25 20:15] LABS: Anion Gap 7 (5-15); BUN 14 mg/dL (7-18); BUN/Creat Ratio 18.6 RATIO (10-20); Calcium,Total 9.4 mg/dL (8.5-10.1); Chloride 104 mmol/L (98-107); Creatinine, Serum 0.75 mg/dL (0.70-1.30); EST Glomerular Filtration Rate 112 mL/min (>60); Est Glom Filt Rate - Afr Amer 135 mL/min (>60); Estimated Creatinine Clearance 103.43 ml/min; Glucose 91 mg/dL (74-106); Potassium 4.2 mmol/L (3.5-5.1); Sodium Level 135 mmol/L (136-145)
[2021-10-25 22:00] VITALS: BP 129/85; PULSE 91; RESP 18; TEMP 37.2; O2SAT 95
[2021-10-25 22:11] VITALS: BMI 24.0
[2021-10-26] VITALS (10 sets, daily range): BP systolic 102–141; BP diastolic 63–86; PULSE 66–85; RESP 14–18; TEMP 36.3–37.3; O2SAT 9–96
--- NOTE | 2021-10-26 | IMM_PTH ---
PATIENT: SUREKHA ARCE LOC: MS3 U#:[id number] AGE/SX: 60/M ROOM: [facility] RE10/25/[address]: Dr. Fozia Saavedra MD : 1960 BED: 1 DIS: 10/27/2021 SPEC #: [id number] RECD: 10/29/21 13:35 STATUS: KM REQ #: [id number] LEANA: 10/26/21 00:[address]: Fozia Saavedra DEPT: IMMUNOHISTOCHEMISTRY RECD BY: Ana M Gale ENTERED: 10/29/21 13:39 SP TYPE: IMMUNO OTHR DR: Donna Lewis, LIQUID FERTILIZER SERVICER-C Tissues: A - Gallbladder, NOS B - HERNIA Procedures: MSH2 (add) MLH-1 (add) MSH6 (add) Anti-PMS2 (add) NAPSIN A (add) CD31 (add) CD34 (add) CK20 (add) CK8 (add) BLANCAS-2 (add) KI-67 (add) P53 (add) TTF1 (add) FACTOR VIII (add) Pankeratin (add) GATA3 (add) CDX2 (add) CK7 (initial) S-100 (add) PHYSICIAN & [place] [id number] SPECIMEN INFORMATION: Tissue Source: A ? Gallbladder, B ? Hernia sac Clinical Info: Acute cholecystitis with obstruction Specimen Number: [id number] A2 & B CPT code: 83861 x2, 87040 x21 METHODOLOGY: Deparaffinized sections of prefer/formalin-fixed tissue or PAP/DQ stained slides are incubated with monoclonal/polyclonal antibodies/oligonucleotide probes. Localization is made via biotin free immunoperoxidase method. Appropriate controls are performed and reacted as expected. Results on target cell population are indicated in the following table: RESULTS: ANTIBODY / CLONE RESULT Block A2 GATA3 (L50-823) negative AE1-3 (AE1/AE3/PCK26) positive CK7 (OV-TL12/30) positive CK8 (61nfriL94) positive CK20 (KS20.8) negative CDX2 ([id number]) negative CD31 (SUNG/70A) negative Factor VIII (R Ag) negative CD34 (QBEnd-10) negative S-100 (4C4.9) negative TTF-1 (8G7G3/1) negative Napsin A (Rabbit Polyclonal) negative BLANCAS-2 (SP21) positive MLH-1 (M1) positive MSH2 (25D12) positive MSH6 (44) positive PMS2 (BFQ7173) positive Ki-67 (30-9) positive, 65% P53 (DO-7) positive Block B CK7 (OV-TL12/30) positive CK20 (KS20.8) negative BLANCAS-2 (SP21) positive P53 (DO-7) positive, rare These tests were developed and their performance characteristics determined by [facility]. They may not have been cleared or approved by the U.S. Food and Drug Administration. The FDA has determined that such clearance or approval is not necessary. The above immunohistochemical/dualISH markers are ordered and reviewed by the Pathologist. INTERPRETATION: A. 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 Result of Microsatellite Instability Study: Negative (no loss of mismatch protein; no microsatellite instability detected). B. Hernia sac, herniorrhaphy: Metastatic adenocarcinoma. AM:devyn 10/30/2021 Case has been reviewed in consultation with Dr. Colunga who concurs with the above diagnosis. IDC:[id number]
[2021-10-26] MEDS: 0.9% Normal Saline 1,000 ML 125 ML IV ×3 (06:00→22:10)
[2021-10-26] MEDS: 0.9% Saline Lock 10 ML Syringe IV ×5 (07:35→21:49)
[2021-10-26] MEDS: Morphine 4 MG/ML Syringe IV ×5 (07:35→21:49)
--- NOTE | 2021-10-26 09:55 | NURSING ---
off unit via bed for surgery
[2021-10-26] MEDS: Lidocaine 2% /Epi 1:100 (50ml) 50 ML Vial (10:42)
--- NOTE | 2021-10-26 10:50 | GALL_PTH ---
PATIENT: SUREKHA ARCE LOC: MS3 U#:[id number] AGE/SX: 60/M ROOM: [facility] RE10/25/[address]: Dr. Fozia Saavedra MD : 1960 BED: 1 DIS: 10/27/2021 SPEC #: [id number] RECD: 10/26/21 13:44 STATUS: KM REMary #: [id number] LEANA: 10/26/21 10:[address]: Fozia Saavedra DEPT: SURGICAL PATHOLOGY RECD BY: Rena Archuleta ENTERED: 10/28/21 08:17 SP TYPE: JAVAN HUGHES DR: Donna Lewis, ROXANA Tissues: A - Gallbladder, NOS B - HERNIA Procedures: Surgery Specimen Level II Surgery Specimen Level V HEADER OPERATION: Laparoscopic cholecystectomy, incisional umbilical hernia PRE-OP DIAGNOSIS: Acute cholecystitis with obstruction TISSUE SUBMITTED: A ? Gallbladder, B ? Hernia sac MICROSCOPIC DIAGNOSIS A. 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 See cancer synoptic report below. B. Hernia sac, herniorrhaphy: Invasive adenocarcinoma. See comment. AM:devyn 10/30/2021 COMMENT A & B. Immunohistochemistry ([id number]) supports the above diagnosis. GALLBLADDER CARCINOMA SUMMARY Procedure - simple cholecystectomy Tumor site ? Cannot be determined. Tumor involves entire gallbladder. Histologic type ? adenocarcinoma, favor biliary type Histologic grade ? G3, poorly differentiated Tumor size ? Cannot be determined. Infiltrating carcinoma in all sections of gallbladder measuring 5.5 cm in greatest dimension. Tumor extent ? invades perimuscular connective tissue to hepatic bed and involves the serosal surface. Lymphvascular invasion ? not identified Perineural invasion ? not identified Margins: Margin status in invasive carcinoma ? tumor extends to hepatic bed and serosal surface. Distance from invasive carcinoma to liver parenchymal margin ? cannot be determined. Margins involved by invasive carcinoma ? tumor extends to serosa and hepatic bed. Regional lymph nodes ? not applicable (no regional lymph nodes submitted or found). Distant sites involved ? not applicable Additional findings ? chronic cholecystitis Ancillary studies ? IHC ([id number]) Comment ? clinically, tumor appears to be T3. PATHOLOGIC STAGE: T2(subcategory cannot be determined) Nx Mx The above summary is in compliance with [employer] (CAP) Cancer Protocols Checklist and [place] [employer] Committee on Cancer (AJCC), Staging Manual, 8th Ed. Case has been reviewed in consultation with Dr. Colunga who concurs with the above diagnosis. IDC:SJ MICROSCOPIC DESCRIPTION Slides are reviewed. GROSS DESCRIPTION A - Received is one container labeled with the patient's name and designated gallbladder. The specimen consists of a previously opened gallbladder measuring 5.5 x 3 x 1.5 cm. A detached piece of tissue is noted measuring 2 x 1 x 0.5 cm. This piece is disrupted and may represent portion of cystic duct. The serosal surface is congested and hemorrhagic. The mucosa is also ulcerated, congested and hemorrhagic. The gallbladder wall measures up to 1 cm in thickness. Admissions Clinician sections are submitted in three cassettes. Cassette 1 contains the detached pieces of tissue. / :devyn 10/28/2021 More sections are submitted in five more cassettes, 4-8. / :devyn 10/29/2021 B - Received in fixative is one container labeled with the patient's name and designated hernia sac. The specimen consists of a piece of rao soft tissue consistent with hernia sac measuring 3 cm in length and up to 4 cm in diameter. No mass lesion is identified. Admissions Clinician sections are submitted in one cassette. / SJ:devyn 10/28/2021 The rest of the specimen is submitted in three more cassettes, 2-4. / SJ:devyn 10/29/2021 TC:0 CPT: 88037, 07634
--- NOTE | 2021-10-26 12:56 | PCM.OPRPT ---
Report of Operation Date of Procedure: 10/26/21 Pre-Operative Diagnosis: cholelithiasis, cholecystitis Post-Operative Diagnosis: cholelithiasis, acute on chronic cholecystitis with obstruction Surgery/Procedure Performed:: laparoscopic cholecystectomy Description of Surgical Findings:: thickened gallbladder wall with chronic cholecystitis, edema of wall consistent with acute cholecystitis with inflammatory changes, large amount of inflammatory changes Surgeon: Fozia Saavedra collection supervisor: Lulu Gabriel Type of Anesthesia: General Anesthesiologist: Precious Aguilar Specimen's removed: gallbladder and contents Drains: 15Fr round passive drain Estimated Blood Loss (mL): 400 ml Fluids Replaced: 1200 ml RL Description of Procedure: After informed consent was given, the patient was brought to the Operating Room. Appropriate time out protocol was followed. The patient was placed in the supine position. The patient was then placed under general endotracheal anesthesia by the anesthesia provider. The abdomen was then prepped with a sterile surgical skin preparation and sterile surgical drapes were placed. The patient had an incarcerated umbilical hernia. The skin and subcutaneous tissues at this area was infiltrated with local anesthetic. A transverse skin incision was made superior to this site. Blunt dissection was done to delineate the hernia sac. There was incarcerated omentum within the sac, the sac was opened to reduce the contents. A 12mm trocar was placed then placed in the umbilical hernia and a CO2 pneumoperitoneum was created. A 10mm laparoscope was then inserted into the trocar and careful attention was directed to the intraabdominal contents. There was no evidence of injury to any intraabdominal organs from insertion of the trocar. Under direct visualization, a 5mm subxiphoid trocar and two lateral 5mm right subcostal trocars were placed. The skin and subcutaneous tissues at these sites were infiltrated with local anesthetic with epinephrine prior to placement of these trocars. Attention was then directed to the right upper quadrant of the abdomen. The liver appeared slightly cirrhotic with cobble-stoning noted of the surface of the liver and also a blunt edge of the liver. There were omental adhesions to the edge of the liver and also densely adhered to the free surface of the gallbladder. Blunt dissection was done to separate the omentum from the liver and gallbladder. This took some time - due to the dense inflammatory changes and bleeding that was controlled by electrocautery. The gallbladder wall was so thickened that graspers could tno grasper the gallbladder for traction. Therefore, Kittners were used to distract the gallbladder. Blunt dissection continued on the free surface of the gallbladder, but the area of the triangle of Calot could not be delineated due to the dense inflammatory adhesions. Therefore the dome-down technique for gallbladder removal was done. Electrocautery was used to separate the anterior free wall of the gallbladder from the posterior wall, as the posterior wall was densely adherent to the liver bed. This continued to the proximal aspect of the gallbladder and this took some time due to the very thick nature of the wall and the inflammatory oozing due to this. Clips were placed at the site of bleeding of the gallbladder wall. The partial gallbladder wall was thus and placed in an Endobag and brought out via the umbilical trocar site. Hemostasis was carefully controlled with electrocautery. A 15 Fr round passive drain was placed in the RUQ with the drainage site directed at the gallbladder fossa. The posterior wall of the gallbladder that had mucosa exposed was cauterized. All stones that could be found were removed and placed in an Endobag and removed from the intraabdominal cavity. Surgicel was applied to the inflammatory areas. No active bleeding or bile leak was noted at time of closure. The CO2 was released and all trocars removed intact. The periumbilical fascia was approximated transversely with a [id number] 0 vicryl suture to close the umbilical hernia defect. All skin incision were closed with 4-0 monocryl in a subdermal fashion. Cavilol and Steristrips were used to reinforce the skin closure. Sterile dressings were applied to all wounds. Sponge, needle and instrument count was verified and correct at time of skin closure. The patient was extubated and brought to the Recovery Room in stable condition. Complications none noted Admit VTE Documentation VTE Present on Admission: Yes VTE Mechan Device Prophylaxis: SCD's
[2021-10-26] MEDS: Lactated Ringers 1,000 ML 15 ML IV (13:35)
--- NOTE | 2021-10-26 18:34 | NURSING ---
ENCOURAGED PT TO AMBULATE HALLS, STARTING TOMORROW, ATLEAST 5X/DAILY D/T RISK OF SBO D/T NARCOTICS, AND ABD SURGERY. I.S PROVIDED AND INSTRUCTED ON USE
[2021-10-27] MEDS: Morphine 4 MG/ML Syringe IV ×3 (00:09→08:20)
[2021-10-27] MEDS: 0.9% Saline Lock 10 ML Syringe IV ×3 (00:09→08:20)
[2021-10-27 02:15] VITALS: BP 109/75; PULSE 73; RESP 16; TEMP 36.7; O2SAT 94
[2021-10-27] MEDS: HYDROcodone Bitartrate/Apap 5/325 Tablet PO ×2 (03:51→10:00)
[2021-10-27 05:31] LABS: AST(SGOT) 41 U/L (15-37); Alanine Aminotransfer ALT/SGPT 103 U/L (16-61); Albumin, Serum 2.6 g/dL (3.2-5.0); Alkaline Phosphatase 263 U/L (45-117); Bilirubin, Direct 0.29 mg/dL (0.00-0.30); Globulin 3.5 g/dL (2.2-4.2); Protein, Total 6.1 g/dL (6.4-8.2)
[2021-10-27] MEDS: 0.9% Normal Saline 1,000 ML 125 ML IV (06:17)
[2021-10-27 09:01] VITALS: BP 109/73; PULSE 79; RESP 15; TEMP 36.7; O2SAT 93
--- NOTE | 2021-10-27 11:44 | PN.SURG_ITS ---
Subjective Subjective patient feeling much improved, ready to go home Objective Data Objective Data Vital Signs: Vital Signs Temp Pulse Resp BP Pulse Ox 98.0 F 79 15 109/73 93 10/27/21 09:01 10/27/21 09:01 10/27/21 09:01 10/27/21 09:01 10/27/21 09:01 Oxygen Flow Rate (L/min) 2 Oxygen Delivery Method Room Air Weight: 73.936 kg Body Mass Index (BMI) 24.0 Intake & Output: Intake and Output for Last 24 Hours 10/25/21 10/26/21 10/27/21 23:59 23:59 23:59 Intake Total 150 / 150 3857.92 / 3857.92 1100 / 1100 Output Total 390 / 420 70 / 70 Balance 150 / 150 3467.92 / 3437.92 1030 / 1030 Lab / Micro Data Result Diagrams: 10/25/21 19:53 10/25/21 19:53 Labs: Laboratory Results - last 24 hr 10/27/21 04:37: Total Bilirubin 0.70, Direct Bilirubin 0.29, AST 41 H, ALT 103 H , Alkaline Phosphatase 263 H, Total Protein 6.1 L, Albumin 2.6 L, Globulin 3.5 Micro: Microbiology 10/25/21 18:41 Nasal Secretion SARS-CoV-2 Antigen (Rapid) - Final Physical Exam Const alert and oriented x3 General Appearance: cooperative Neck full ROM Resp normal respiratory effort GI GI Narrative: abdomen is soft and benign, LAUREL output is serosanguinous Assessment & Plan Assessment/Plan (1) Status post laparoscopic cholecystectomy: PLAN: Will discharge to home, patient to follow up with me later this week
--- NOTE | 2021-10-27 11:54 | PCM.DC ---
Discharge Instructions Follow Up Care Test Results: Test results from this visit will be discussed in further detail at your follow-up appointment, if applicable. Discharge Plan Admission Admit Date/Time: 10/25/21 17:40 Attending Provider: Fozia Saavedra Primary Care Provider: Donna Lewis NP Instructions Additional Instructions / Restrictions: Recommended pain control regimen - May take 600 mg ibuprofen (Motrin) and then in 3-4 hours, may take 650 mg acetaminophen (Tylenol), then in 3-4 hours may take 600 mg ibuprofen, then in 3-4 hours may take 650 mg acetaminophen and so on for 2-3 days May take narcotic pain medication for pain that is not controlled by above and at night for comfort through the night Leave dressings in place Sponge bathe only, until further notice Do not soak - no tub baths/swimming Ice applied to areas of discomfort may help No lifting/pushing/pulling greater than 20 pounds for a month. Regular diet as tolerated, drink plenty of fluids. Avoid carbonated beverages for a few days as this will cause abdominal bloating and thus discomfort after our surgery. Please call my office for an appointment to see me on Thursday, October 30. Office number is If any questions, please call my office at and ask the numerical control lathe operator for the general surgery nurses desk Discharge Orders/Prescriptions Prescriptions: New oxycodone 5 mg capsule 5 mg PO Q8H PRN (Reason: pain) 5 Days Qty: 15 RF: 0 amoxicillin-pot clavulanate [Augmentin] 500-125 mg tablet 1 tab PO Q8H 5 Days Qty: 15 RF: 0 No Action tramadol 50 MG tablet 50 mg PO Q4H PRN PRN (Reason: severe pain) Qty: 14 RF: 0 multivitamin Tablet 2 tab PO DAILY RF: 0 potassium chloride 20 MEQ tablet,ER particles/crystals 20 meq PO DAILY RF: 0 pantoprazole 40 MG tablet,delayed release (DR/EC) 40 mg PO DAILY RF: 0 folic acid 1 MG tablet 1 mg PO DAILY RF: 0 Referrals / Follow Up: Donna Lewis NP, [facility] [employer] [Primary Care Provider] - Disposition Discharge Orders: Discharge Patient (Routine); Ordered 10/27/21 Ordered By: Dr. Fozia Saavedra
== END 2021-10-27 13:20 | disposition home or self-care (01) ==
PROVIDERS: Anesthesiology; Admitting Provider Surgery; PCP Registered Nurse; Visit Provider Surgery
PROC: (CPT 47610; principal; 2021-10-26 10:30)
DX: C23 Malignant neoplasm of gallbladder (principal); C78.6 Secondary malignant neoplasm of retroperitoneum and peritoneum; K74.60 Unspecified cirrhosis of liver; K42.0 Umbilical hernia with obstruction, without gangrene; F17.210 Nicotine dependence, cigarettes, uncomplicated; Z79.899 Other long term (current) drug therapy; K21.9 Gastro-esophageal reflux disease without esophagitis; G89.29 Other chronic pain; K80.13 Calculus of gallbladder with acute and chronic cholecystitis with obstruction
CPT/HCPCS: 47562; 00790; 88304; 36415; 71045; 80048; 80076; 85025; 87811; 88302; 88307; 88341; 88342; 93005; 96361; 96365; 96366; 96375; 96376; 99218; 99251; 99406; J7030; J7120; A4216; G0378; G0463; J2405

== ENCOUNTER 2021-11-15 10:41 | Day surgery (SDC) | payer MEDICAID, SELFPAY ==
[2021-11-15 11:18] VITALS: BP 113/76; PULSE 116; RESP 16; TEMP 36.8; O2SAT 94; BMI 23.8
[2021-11-15] MEDS: Lactated Ringers 1,000 ML 15 ML IV (11:24)
[2021-11-15] MEDS: Cefotetan 2 GM in 0.9% NS 100 ML IV (11:26)
--- NOTE | 2021-11-15 11:27 | EKG12_ITS ---
Test Reason : PREOP Blood Pressure : / mmHG Vent. Rate : 102 BPM Atrial Rate : 102 BPM P-R Int : 132 ms QRS Dur : 142 ms QT Int : 384 ms P-R-T Axes : 075 228 046 degrees QTc Int : 500 ms Sinus tachycardia Right bundle branch block Abnormal ECG Confirmed by TRENT STEPHENS, SARMAD ([id number]), health editor DORIS DEMPSEY ([id number]) on 11/20/2021 8:46:44 AM Referred By: Donna Lewis Confirmed By:SARMAD NEWMAN MD
--- NOTE | 2021-11-15 12:01 | PCM.HP.BLA ---
History and Physical Date of Admission: 11/15/21 Intake Vital Signs ? 10/26/2209:10 11/13/2212:56 Height 5 ft 9 in 5 ft 9 in Weight: ? 160 lb BMI ? 23.6 BP ? 114/75 Blood Pressure Location ? Rt brachial Position ? Sitting Respiration ? 16 Intake Visit Reasons:?ERCP Chief Complaint: ERCP Healthcare Insurance Sales Agent Required: No Is patient in pain?: No Allergies No Known Allergies Allergy (Verified 11/13/21 13:56) Medications tramadol 50 mg tablet 50 mg PO Q4H PRN PRN severe pain #14 tabs 03/26/19 [Rx Confirmed 11/13/21] folic acid 1 mg tablet 1 mg PO DAILY supplement 10/25/21 [History Confirmed 11/13/21] multivitamin 2 tab PO DAILY vitamin 10/25/21 [History Confirmed 10/25/21] pantoprazole 40 mg tablet,delayed release 40 mg PO DAILY gerd 10/25/21 [History Confirmed 11/13/21] potassium chloride 20 mEq tablet,extended release(part/cryst) 20 meq PO DAILY supplement 10/25/21 [History Confirmed 11/13/21] oxycodone 5 mg capsule 5 mg PO Q8H PRN pain 5 days #15 caps 10/27/21 [Rx Confirmed 11/13/21] PFSH Medical History Bile leak Chronic back pain GERD (gastroesophageal reflux disease) GI bleed Kidney stones S/P neck surgery, follow-up exam Smoker Surgical History? Previous back surgery S/P knee surgery Status post laparoscopic cholecystectomy Family History? Father Cancer ?? ? lung Social History? Smoking Status:? Current every day smoker tobacco type: cigarettes alcohol intake:? current HPI HPI HPI: SUREKHA ARCE, is a 61 M who presents to the office today for ERCP.? The patient had cholecystectomy 2 weeks ago and was found to have gallbladder cancer.? He has an ongoing bile leak and does have a drain in place. ROS General General: Yes weight change and fatigue; No appetite, colon cancer, breast cancer or weakness HEENT HEENT: No difficulty swallowing, eye injury, eye surgery, swollen glands or hoarseness Endo Endocrine: No thyroid disease, diabetes mellitus, thyroid cancer, Hair loss, heat intolerance or cold intolerance Skin Skin: No rash or changing moles Breast Breast: No left breast lump, right breast lump, nipple discharge, breast pain, abnormal mammogram, abnormal US or breast enlargement Musc Musculoskeletal: Yes back problems; No arthritis, rheumatoid arthritis, gout or joint pain Cardio Cardiovascular: No murmur, pacemaker, heart disease, atrial fibrillation, high blood pressure, heart attack, heart stent, palpitations, shortness of breat with exertion or chest pain Psych Psychiatric: No depression, anxiety or hearing voices Resp Respiratory: No shortness of breath, No sleep apnea, No cough, No COPD, No asthma, No emphysema and No wheezing Gastro Gastrointestinal: Yes abdominal pain, No nausea or vomiting, No diarrhea, No constipation, No blood in stool, No acid reflux, No hemorrhoids, No ulcers, Yes gallbladder problem and No black,tarry stools Sung Hematologic: No blood thinners, No blood disorders, No bleeding, No anemia and No blood clots Neuro Neurologic: No system reviewed and no additional complaints, except as documented, No as per HPI, No abnormal gait, No abnormal hearing, No abnormal movements, No abnormal speech, No behavioral changes, No burning sensations, No confusion, No convulsions, No disequilibrium, No dizziness, No localized weakness, No frequent falls, No headache(s), No lack of coordination, No loss of vision, No memory loss, No numbness, No other visual disturbances, No radicular pain, No restless legs, No sensory deficit, No syncope, No tingling, No tremor(s), No weakness and No other Exam Const General: cooperative Orientation: alert and oriented x3 HENMT Head: normal to inspection Neck Neck: normal visual inspection and full ROM Chest Chest palpation & inspection: normal inspection of the chest Resp Effort & Inspection: normal respiratory effort Auscultation: clear to auscultation bilaterally Cardio Rate: regular rate Rhythm: regular rhythm GI Inspection: non-distended Palpation: soft and nontender Skin General: no rashes or lesions noted Neuro General: patient alert and patient oriented x3 Extrem General: full ROM Psych Appearance: grossly normal Mental Status: mental status grossly normal Assessment and Plan Assessment and Plan (1) Bile leak: ?Status:?Acute (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 Pathology showed adenocarcinoma likely from gallbladder origin.? Patient has not had any further imaging that I can access.? The patient has not seen oncology yet.? He does have a drain in place with bilious drainage.? I discussed ERCP and stent placement with the patient in detail.? I discussed the risks including not limited to bleeding, infection, perforation of the bile duct or bowel, pancreatitis.? Patient understands the procedure and I did discuss that this may not be effective due to the cancer.? I also recommend the patient see oncology and have further imaging and work-up and discussion of possible treatment. I explained endoscopy in detail to the patient.? I explained the risks including but not limited to stroke or heart attack with anesthesia, perforation of the GI tract, bleeding, infection.? I explained that any of these could necessitate further emergency surgery.? The patient understands and all questions were answered sufficiently.? The patient wishes to proceed with procedure. Renzo Zaragoza MD Pager: [facility] [address] [place] [address] [address] [place] [address] Office: I have re-examined the patient. There are no clinical changes since date of exam.
--- NOTE | 2021-11-15 13:21 | OP.PCM_ITS ---
Report of Operation Date of Procedure: 11/15/21 Pre-Operative Diagnosis: Bile leak Post-Operative Diagnosis: Bile leak Surgery/Procedure Performed:: EGD with attempted ERCP Description of Procedure: Patient was brought to the operating room and general anesthesia was induced. The patient was placed in prone position. Bite-block was placed. Next a well- lubricated ERCP scope was placed into the mouth and down into the stomach and into the duodenum. Patient had a very large diverticulum and the ampulla was unable to identified. Glucagon was given and bile flowed from the diverticulum but with close inspection I was unable to identify the ampulla within the diverticulum. Another amp of glucagon was given and I was still unable to identify the ampulla and at this point the procedure was aborted and the scope was removed.
--- NOTE | 2021-11-15 13:23 | EX.PCM.DISCH ---
Discharge Instructions Diet Discharge Diet: No restrictions Activity Discharge Activity: Return to Normal Activity Dressing / Incision Drain: Suction Follow Up Care Please Follow Up With: Fozia Saavedra MD When: call to make appointment Test Results: Test results from this visit will be discussed in further detail at your follow-up appointment, if applicable. Discharge Plan Admission Attending Provider: Renzo Zaragoza Primary Care Provider: Donna Lewis NP Discharge Orders/Prescriptions Prescriptions: No Action tramadol 50 MG tablet 50 mg PO Q4H PRN PRN (Reason: severe pain) Qty: 14 0RF multivitamin Tablet 2 tab PO DAILY potassium chloride 20 MEQ tablet,ER particles/crystals 20 meq PO DAILY pantoprazole 40 MG tablet,delayed release (DR/EC) 40 mg PO DAILY folic acid 1 MG tablet 1 mg PO DAILY oxycodone 5 mg capsule 5 mg PO Q8H PRN (Reason: pain) 5 Days Qty: 15 0RF Referrals / Follow Up: Donna Lewis NP, [employer] [Primary Care Provider] - Disposition Discharge Orders: Discharge Patient (Routine); Ordered 11/15/21 Ordered By: Dr. Renzo Zaragoza
[2021-11-15 13:27] VITALS: BP 103/73; BP 113/76; PULSE 93; RESP 18; TEMP 37.2; O2SAT 96
[2021-11-15 13:30] VITALS: BP 108/81; BP 113/76; PULSE 92; RESP 18; O2SAT 93
[2021-11-15 13:45] VITALS: BP 104/81; BP 113/76; PULSE 90; RESP 18; O2SAT 93
[2021-11-15 14:00] VITALS: BP 113/76; BP 92/68; PULSE 90; RESP 16; TEMP 37; O2SAT 96
[2021-11-15 14:57] VITALS: BP 108/74; BP 113/76; PULSE 88; RESP 16; TEMP 36.8; O2SAT 93
== END 2021-11-15 14:59 | disposition home or self-care (01) ==
LOC: EN 10:42 → AC 10:44
PROVIDERS: PCP Registered Nurse; Referring Provider Registered Nurse; Visit Provider Surgery
PROC: (CPT 43260; principal; 2021-11-15 11:25)
DX: K57.10 Diverticulosis of small intestine without perforation or abscess without bleeding (principal); C23 Malignant neoplasm of gallbladder; K91.89 Other postprocedural complications and disorders of digestive system; K83.8 Other specified diseases of biliary tract; Z53.9 Procedure and treatment not carried out, unspecified reason; M54.9 Dorsalgia, unspecified; G89.29 Other chronic pain; K21.9 Gastro-esophageal reflux disease without esophagitis; F17.210 Nicotine dependence, cigarettes, uncomplicated; Z79.899 Other long term (current) drug therapy; Z90.49 Acquired absence of other specified parts of digestive tract
CPT/HCPCS: 43260; 93005; J7120; J1610; J2405

== ENCOUNTER 2022-01-01 17:14 | Emergency (ER) | payer MEDICAID, SELFPAY ==
[2022-01-01] VITALS (7 sets, daily range): BP systolic 99–120; BP diastolic 69–78; PULSE 89–125; RESP 16–20; TEMP 36.9–38; O2SAT 96–98; BMI 22.8
--- NOTE | 2022-01-01 17:30 | EX.ED.DYSGE1 ---
HPI History of Present Illness Chief Complaint: Fever Informant: patient Onset/Context/Timing Onset: Yesterday Context: Sudden Onset Timing: Intermittent Quality: Fever Location: Generalized Worsened by: Nothing Relieved by: Nothing Narrative Narrative: Patient presents with a fever that began yesterday. Patient states it was up to 103 at home. Patient states he had a headache prior to the fever. Patient states he took some ibuprofen which helped with the headache and with the fever. Patient is on chemotherapy for stomach cancer. Patient also had a recent laparoscopy and has a drainage tube in his abdomen. Patient admits to nausea but denies any vomiting. Patient also admits to a mild headache. Patient states nothing makes his fever better nothing makes it worse. [facility] Medical History Alcohol use Back pain Bile leak Cancer Chronic back pain GERD (gastroesophageal reflux disease) GI bleed History of echocardiogram History of stress test Kidney stones Leg cramps S/P neck surgery, follow-up exam Smoker Wears contact lenses Home Medications tramadol 50 mg tablet 50 mg PO Q4H PRN PRN severe pain #14 tabs 03/26/19 [Rx Last Taken 10/21/21] folic acid 1 mg tablet 1 mg PO DAILY supplement 10/25/21 [History Last Taken 10/25/21] multivitamin 2 tab PO DAILY vitamin 10/25/21 [History Last Taken 10/25/21] pantoprazole 40 mg tablet,delayed release 40 mg PO DAILY gerd 10/25/21 [History Last Taken 10/25/21] potassium chloride 20 mEq tablet,extended release(part/cryst) 20 meq PO DAILY supplement 10/25/21 [History Last Taken 10/25/21] oxycodone 5 mg capsule 5 mg PO Q8H PRN pain 5 days #15 caps 10/27/21 [Rx Last Taken Unknown] ciprofloxacin HCl 500 mg tablet 500 mg PO BID #14 TABLETS 01/01/22 [Rx Last Taken Unknown] Allergy/AdvReac Type Severity Reaction Status Date / Time No Known Allergies Allergy Verified 01/01/22 17:18 Family History Father Cancer lung Surgical History Previous back surgery S/P knee surgery Status post laparoscopic cholecystectomy Social History Smoking Status: Current every day smoker tobacco type: cigarettes alcohol intake: current ROS ROS ED Constitutional Constitutional ED: Reports fever(s) and sweats; Denies chills Eyes Eyes: Denies blurry vision or change in vision ENT ENT ED: Denies rhinorrhea or sore throat Cardiovascular Cardiovascular: Denies chest pain or palpitations Respiratory/Chest Respiratory/Chest: Denies cough or dyspnea Gastrointestinal Gastrointestinal: Reports abdominal pain and nausea; Denies vomiting Genitourinary Genitourinary ED: Denies dysuria or hematuria Musculoskeletal Musculoskeletal: Denies back pain or neck pain Integumentary Denies abscess or rash Neurologic Neurologic: Reports headache(s); Denies weakness Allergic/Immunologic Allergic/Immunologic ED: Denies mouth swelling or urticaria EXAM Physical Exam Const Vital Signs: 01/01/22 17:15 01/01/22 17:15 01/01/22 17:35 Temperature 100.4 F H Temperature Source Oral Pulse Rate 125 H Respiratory Rate 19 H Respiratory Pattern Normal Blood Pressure 99/75 Blood Pressure Mean 83 Pulse Ox 97 Oxygen Delivery Method Room Air Room Air 01/01/22 17:55 01/01/22 18:33 01/01/22 18:36 Temperature 100.2 F H 99.0 F 99.0 F Temperature Source Oral Oral Oral Pulse Rate 105 H 91 Respiratory Rate 18 16 Respiratory Pattern Blood Pressure 101/69 103/70 Blood Pressure Mean 79 81 Pulse Ox 96 98 Oxygen Delivery Method Room Air Room Air 01/01/22 19:28 01/01/22 19:32 Temperature 98.4 F 98.4 F Temperature Source Oral Oral Pulse Rate 89 Respiratory Rate 20 H Respiratory Pattern Blood Pressure 111/77 Blood Pressure Mean 88 Pulse Ox 97 Oxygen Delivery Method Room Air Positive well nourished and well developed General Appearance ED: well developed and NAD HEENT Reports moist mucous membranes Neck supple and no JVD Resp normal respiratory effort and clear to auscultation bilaterally Cardio regular rate, regular rhythm and no murmurs GI normal to inspection, nondistended, normoactive bowel sounds and non-tender GI Narrative: The drain tube site is clean. There is no erythema. There is no discharge or drainage. The incision over the epigastric area does not show any discharge or drainage. There is no erythema. There is no tenderness. There is no guarding. Palpation: soft; Negative for guarding Extremity normal to inspection General Extremety ED: Negative for edema or tenderness General Extremity: Negative for edema Neuro oriented x3, CN's II-XII intact bilaterally and no sensory deficits noted Sensorium / Orientation: alert Motor Exam: strength 5/5 throughout Psych mental status grossly normal Skin no rashes or lesions noted MDM MDM MDM Narrative Medical decision making narrative: Patient was given a dose of Tylenol here. Patient was given IV fluids. CBC shows a white blood cell count of 2.7. His absolute neutrophil count was 2.0. There is a mild anemia with a hemoglobin of 12.6 hematocrit 36.9. Platelets were normal. PT was INR and PTT were within normal limits. Comprehensive metabolic profile shows a slightly elevated alkaline phosphatase of 529, ALT was 98, AST was 28. The remainder was within normal limits. Urinalysis does not show any evidence of urinary tract infection. Lactate was normal. Portable 1 view chest x-ray was obtained. On my interpretation, lung maddox are clear. There is normal cardiac silhouette. Bony thorax is normal. There is no acute process noted. Radiologist also interpreted the x-ray and agrees. EKG was obtained. On my interpretation, shows a sinus tachycardia with a rate of 103. There is a right bundle branch block pattern noted. HI interval was within normal limits. QRS interval was slightly prolonged at 136 ms. QTc interval was slightly prolonged at 482 ms. There are no acute ST or T wave changes noted. Case was discussed with Dr. Thornton. He is agreeable with allowing the patient to be discharged home. He recommended placing the patient on Cipro. Patient was given a prescription for Cipro. Patient was given his first dose here. Patient was instructed to follow-up with his primary care physician and oncologist in 3 to 5 days. Patient understood and was agreeable with the plan. All questions were answered. Lab Data Labs: Laboratory Results - last 24 hr 01/01/22 01/01/22 01/01/22 17:55 17:55 17:55 WBC 2.7 L RBC 3.95 L Hgb 12.6 L Hct 36.9 L MCV 93.4 MCH 31.9 MCHC 34.1 RDW Std Deviation 40.9 RDW Coeff of Harinder 12.0 Plt Count 163 MPV 8.7 Immature Gran % (Auto) 1.100 H Neut % (Auto) 75.8 H Lymph % (Auto) 16.4 L [place] % (Auto) 5.6 Eos % (Auto) 0.7 Baso % (Auto) 0.4 Absolute Neuts (auto) 2.0 Absolute Lymphs (auto) 0.44 L Nucleated RBC % 0 Differential Comment SCANNED Diff Path Review May foll PT 12.7 INR 1.0 APTT 30.5 Sodium 134 L Potassium 3.8 Chloride 101 Carbon Dioxide 23.0 Anion Gap 10 BUN 18 Creatinine 0.84 Estim Creat Clear Calc 90.67 Est GFR (MDRD) Af Amer 119 Est GFR (MDRD) Non-Af 98 BUN/Creatinine Ratio 21.4 H Glucose 122 H Lactic Acid Calcium 9.0 Total Bilirubin 0.60 AST 28 ALT 98 H Alkaline Phosphatase 529 H Total Protein 7.4 Albumin 3.1 L Globulin 4.3 H Albumin/Globulin Ratio 0.7 L Urine Color Urine Clarity Urine pH Ur Specific Hassell Urine Protein Urine Glucose (UA) Urine Ketones Urine Occult Blood Urine Nitrite Urine Bilirubin Urine Urobilinogen Ur Leukocyte Esterase Urine RBC Urine WBC Ur Squamous Epith Cells Urine Bacteria Urine Mucus 01/01/22 01/01/22 17:55 18:40 WBC RBC Hgb Hct MCV MCH MCHC RDW Std Deviation RDW Coeff of Harinder Plt Count MPV Immature Gran % (Auto) Neut % (Auto) Lymph % (Auto) [place] % (Auto) Eos % (Auto) Baso % (Auto) Absolute Neuts (auto) Absolute Lymphs (auto) Nucleated RBC % Differential Comment Diff Path Review PT INR APTT Sodium Potassium Chloride Carbon Dioxide Anion Gap BUN Creatinine Estim Creat Clear Calc Est GFR (MDRD) Af Amer Est GFR (MDRD) Non-Af BUN/Creatinine Ratio Glucose Lactic Acid 1.1 Calcium Total Bilirubin AST ALT Alkaline Phosphatase Total Protein Albumin Globulin Albumin/Globulin Ratio Urine Color Yellow Urine Clarity Clear Urine pH 6.0 Ur Specific Hassell 1.005 Urine Protein 15 H Urine Glucose (UA) Normal Urine Ketones Negative Urine Occult Blood Negative Urine Nitrite Negative Urine Bilirubin Negative Urine Urobilinogen Normal Ur Leukocyte Esterase 25 H Urine RBC 0 SEEN Urine WBC 0-5 SEEN Ur Squamous Epith Cells 0-5 SEEN Urine Bacteria 0 SEEN Urine Mucus 0 SEEN Radiography Diagnostic Testing: Clinical Impression(s) from Imaging Studies Chest X-Ray 08/17/22 18:03 IMPRESSION: Normal x-ray examination of the chest. Electronically Signed: Gómez Perez MD, ONEYDA at 18:25 EDT , EKG Initial EKG: Attestation: I personally reviewed and interpreted this EKG as follows: Interpretation: Sinus Tachycardia (103), RBBB and Non-Specific ST Changes Prior EKG tracings: available for review Prior: Unchanged Discharge Plan Triage Chief Complaint: Fever ED Provider: Wilfredo Wei Dx/Rx/DC Orders Clinical Impression: Fever, Adenocarcinoma of gallbladder Instructions: ED Fever Control (Adult) Prescriptions: New ciprofloxacin HCl [ciprofloxacin HCl] 500 MG tablet 500 mg PO BID Qty: 14 0RF No Action tramadol 50 MG tablet 50 mg PO Q4H PRN PRN (Reason: severe pain) Qty: 14 0RF multivitamin Tablet 2 tab PO DAILY potassium chloride 20 MEQ tablet,ER particles/crystals 20 meq PO DAILY pantoprazole 40 MG tablet,delayed release (DR/EC) 40 mg PO DAILY folic acid 1 MG tablet 1 mg PO DAILY oxycodone 5 mg capsule 5 mg PO Q8H PRN (Reason: pain) 5 Days Qty: 15 0RF Primary Care Provider: Donna Lewis NP Referrals: Morgan Whitney MD [Med Staff - Active Staff] - 3-5 Days Donna Lewis NP, [employer] [Primary Care Provider] - 3-5 Days Activity Restrictions/Additional Instructions: Call Dr. Whitney's office tomorrow to schedule an appointment for follow-up care. Disposition Disposition: Home, Self Care
--- NOTE | 2022-01-01 17:33 | EKG12_ITS ---
Test Reason : fever Blood Pressure : / mmHG Vent. Rate : 103 BPM Atrial Rate : 103 BPM P-R Int : 128 ms QRS Dur : 136 ms QT Int : 368 ms P-R-T Axes : 069 182 040 degrees QTc Int : 482 ms Sinus tachycardia Right bundle branch block Abnormal ECG Confirmed by TRENT STEPHENS, SARMAD ([id number]), publishing editor DORIS DEMPSEY ([id number]) on 01/03/2022 9:40:36 AM Referred By: Kylie Confirmed By:SARMAD NEWMAN MD
[2022-01-01] MEDS: Acetaminophen 500 MG Tablet 1000 MG PO (18:02)
--- NOTE | 2022-01-01 18:03 | RAD_ITS ---
STUDY: X-RAY CHEST REASON FOR EXAM: Male, 61 years old. Fever Single frontal view TECHNIQUE: Single frontal view COMPARISON: None. FINDINGS: The lungs are clear and expanded. There is no demonstrated pleural abnormality. Normal size heart. Normal mediastinum and anna. Normal visualized pulmonary arteries. Normal visualized aortic arch and descending thoracic aorta. Normal visualized thoracic spine. Normal visualized ribs, clavicles, and shoulders. There is no demonstrated abnormality of the visualized soft tissue structures of the upper abdomen. RAD/Chest 1 View (Portable) IMPRESSION: Normal x-ray examination of the chest. Electronically Signed: Gómez Perez MD, ONEYDA at 18:25 EDT ,
[2022-01-01 18:12] LABS: Absolute Lymphocyte Count 0.44 X10^3/uL (0.83-4.51); Basophil# 0.01 X10^3/uL; Basophil% 0.4 % (0-1); Eosinophil# 0.02 X10^3/uL; Eosinophils% 0.7 % (0-5); Hematocrit 36.9 % (40-54); Hemoglobin 12.6 g/dL (13.0-16.5); Lymphocyte # 0.44 X10^3/ul (0.83-4.51); Lymphocyte % 16.4 % (19-41); Mean Corp Hgb Conc 34.1 g/dL (32-36); Mean Corpuscular Hgb 31.9 pg (27.0-32.0); Mean Corpuscular Volume 93.4 fL (80-94); Mean Platelet Vol. 8.7 fl (6.2-12.0); Monocyte# 0.15 X10^3/uL; Monocyte% 5.6 % (0-10); NRBC Flagged by Analyzer 0 % (0-5); Neutrophil # 2.04 X10^3/uL (2.7-7.7); Neutrophil % 75.8 % (47-70); POSITIVE DIFFERENTIAL YES; Platelet Count 163 K/mm3 (150-450); RBC Distribution Width SD 40.9 fl (35.1-43.9); Red Blood Count 3.95 M/mm3 (4.6-6.2); White Blood Count 2.7 K/mm3 (4.4-11.0)
[2022-01-01 18:21] LABS: Differential Indicated SCAN CRITERIA MET
[2022-01-01 18:27] LABS: Prothrombin Time (Protime)PT. 12.7 SECONDS (11.7-14.9)
[2022-01-01 18:28] LABS: Partial Thromboplast Time 30.5 Seconds (24.1-36.2)
[2022-01-01 18:31] LABS: ALB/GLOB Ratio 0.7 RATIO (0.9-2.4); AST(SGOT) 28 U/L (15-37); Alanine Aminotransfer ALT/SGPT 98 U/L (16-61); Albumin, Serum 3.1 g/dL (3.2-5.0); Alkaline Phosphatase 529 U/L (45-117); Anion Gap 10 (5-15); BUN 18 mg/dL (7-18); BUN/Creat Ratio 21.4 RATIO (10-20); Chloride 101 mmol/L (98-107); Creatinine, Serum 0.84 mg/dL (0.70-1.30); EST Glomerular Filtration Rate 98 mL/min (>60); Est Glom Filt Rate - Afr Amer 119 mL/min (>60); Estimated Creatinine Clearance 90.67 ml/min; Globulin 4.3 g/dL (2.2-4.2); Glucose 122 mg/dL (74-106); Potassium 3.8 mmol/L (3.5-5.1); Protein, Total 7.4 g/dL (6.4-8.2); Sodium Level 134 mmol/L (136-145)
[2022-01-01 18:33] LABS: Lactic Acid 1.1 mmol/L (0.4-1.9)
[2022-01-01 18:47] LABS: Bacteria 0 SEEN /hpf (None Seen); Mucous, Urine 0 SEEN /hpf (<or=2+); Red Blood Cells-Urine 0 SEEN /hpf (0-5)
[2022-01-01 18:48] LABS: Color, Urine Yellow (Yellow); Glucose, Dipstick Normal (Normal); Ketone-Dipstick Negative (Negative); Leukocyte Esterase-Dipstick 25 /ul (Negative); Nitrite-Dipstick Negative (Negative); Occult Blood-Urine Negative /ul (Negative); Protein-Dipstick 15 mg/dl (Negative); Specific Gravity, Urine 1.005 (1.002-1.030); Urine Bilirubin Dipstick Negative (Negative); Urine Clarity Clear (Clear); Urine Urobilinogen Normal (Normal)
[2022-01-01 18:57] LABS: Squamous Epithelial Cells - UA 0-5 SEEN /hpf (0-5); White Blood Cells 0-5 SEEN /hpf (0-5)
[2022-01-01 19:13] LABS: Differential Comment SCANNED
[2022-01-01] MEDS: Ciprofloxacin 500 MG Tablet PO (20:00)
[2022-01-02 08:43] LABS: Pathologist Review Reviewed
== END 2022-01-01 20:04 | disposition home or self-care (01) ==
PROVIDERS: Emergency Provider Emergency Medicine; PCP Registered Nurse; Visit Provider Emergency Medicine
DX: R50.9 Fever, unspecified (principal); C23 Malignant neoplasm of gallbladder; C16.9 Malignant neoplasm of stomach, unspecified; R51.9 Headache, unspecified; R11.0 Nausea; I45.10 Unspecified right bundle-branch block; D64.9 Anemia, unspecified; M54.9 Dorsalgia, unspecified; K21.9 Gastro-esophageal reflux disease without esophagitis; F17.210 Nicotine dependence, cigarettes, uncomplicated; Z79.899 Other long term (current) drug therapy
CPT/HCPCS: 36415; 71045; 80053; 81001; 83605; 85025; 85610; 85730; 87040; 87086; 87088; 93005; 96360; 99285; J7030

== ENCOUNTER 2022-03-04 12:42 | Day surgery (SDC) | payer MEDICAID, SELFPAY ==
[2022-03-04] MEDS: Lidocaine 1%/Epi 1:200 (30ml) 30 ML AMPUL (01:41)
[2022-03-04 13:12] VITALS: BP 127/86; PULSE 88; RESP 16; TEMP 37.2; O2SAT 99; BMI 24.8
[2022-03-04] MEDS: Lactated Ringers 1,000 ML 15 ML IV (13:16)
[2022-03-04] MEDS: Cefazolin 2 GM in 0.9% Normal Saline 100 ML IV (14:00)
--- NOTE | 2022-03-04 14:40 | OP.PCM_ITS ---
Report of Operation Date of Procedure: 03/04/22 Pre-Operative Diagnosis: exhausted vascular access, metastatic gallbladder canc er need for IV access for chemotherapy Post-Operative Diagnosis: same Surgery/Procedure Performed:: placement of permanent indwelling tunneled catheter in the right subclavian vein with subcutaneous port Description of Surgical Findings:: normal right subclavian vein to SVC Surgeon: Fozia Saavedra Type of Anesthesia: MAC Anesthesiologist: Deanne Law Drains: none Estimated Blood Loss (mL): < 5 ml Description of Procedure: After informed consent was given, the patient was brought to the Operating Room. Appropriate time out protocol was followed. The patient was then placed in the supine position. The patient was then given IV conscious sedation for anesthesia. The patient?s upper chest and neck were then prepped with a surgical skin preparation and sterile surgical drapes were placed. After proper landmarks were ascertained, the skin at the upper right chest area was then infiltrated with 1% xylocaine with epinephrine. A needle trocar was then inserted into the right subclavian vein and there was good aspiration of venous blood. A wire was then threaded into the needle trocar and this was visualized under fluoroscopy to ensure that the wire was in the right subclavian vein. Once this was done, then the needle trocar was removed. A small skin rosa elena was made with an 11 blade knife at the wire entrance site. The dilator with the introducer sheath attached was then placed over the wire into the right subclavian vein via the Seldinger technique and this was visualized under fluoroscopy. The dilator and sheath were in proper position as visualized by fluoroscopy in real time. The wire and dilator were then removed. The catheter was then threaded into the introducer sheath and was positioned with its tip at the junction of the superior vena cava and the right atrium as visualized under fluoroscopy in real time. I personally reviewed all of the above fluoroscopic images and noted that the positions of the wire and catheter were correct so that the next step could be conducted. The catheter was flushed with a heparin saline mixture prior to placement. A subcutaneous pocket was then created caudad to the catheter insertion site. A transverse skin incision was made after the skin and subcutaneous tissues were infiltrated with local anesthetic. Blunt dissection was then used to create a space large enough for placement of the subcutaneous port. Hemostasis was carefully controlled with electrocautery. The port was sutured to the subcutaneous fascia using vicryl suture at three sites. The catheter was then tunneled into the subcutaneous pocket. The excess catheter was transected. The catheter was then attached to the subcutaneous port using sales and operations trainee?s guidelines. The port was then placed in the subcutaneous pocket and the sutures were ligated. The subdermal incisional sites were reapproximated with interrupted vicryl suture. The skin was reapproximated with monocryl suture in a subcuticular fashion. Cavilon and steristrips were used for reinforcement of the skin closure and a sterile opsite dressing was applied. Sponge, needle, and instrument count were verified and correct at the time of skin closure. Aspiration revealed good influx of blood and the port and access tubing were then flushed with heparinized saline. The patient was brought to the Recovery Room in stable condition Grafts/Implants Used: PowerPort Lot [id number], Exp 2022-12-15 Complications none noted Admit VTE Documentation VTE Present on Admission: Yes VTE Mechan Device Prophylaxis: SCD's
[2022-03-04 14:50] VITALS: BP 120/80; BP 127/86; PULSE 81; RESP 18; TEMP 37.3; O2SAT 97
--- NOTE | 2022-03-04 14:50 | RAD_ITS ---
STUDY: X-RAY CHEST REASON FOR EXAM: Male, 61 years old. Line placement. TECHNIQUE: Single AP portable view of the chest. COMPARISON: 01/01/2022 FINDINGS: There is now a right subclavian Port-A-Cath with its tip in the proximal superior vena cava. No pneumothorax. The lungs are clear and expanded. No new infiltrate or mass. There is no demonstrated pleural abnormality. Normal size heart. There is no change in the mediastinum, anna, pulmonary arteries or aorta. No osseous changes. There is no demonstrated abnormality of the visualized soft tissue structures of the upper abdomen. RAD/CXR for Line Placement IMPRESSION: 1. Right subclavian Port-A-Cath without pneumothorax or other interval change. Electronically Signed: Baldo Mayes DO at 16:32 EDT ,
[2022-03-04 14:55] VITALS: BP 123/84; BP 127/86; PULSE 80; RESP 16; O2SAT 98
[2022-03-04 15:00] VITALS: BP 102/77; BP 127/86; PULSE 77; RESP 16; O2SAT 99
[2022-03-04 15:05] VITALS: BP 119/77; BP 127/86; PULSE 75; RESP 16; TEMP 36.6; O2SAT 97
[2022-03-04 15:25] VITALS: BP 127/86
== END 2022-03-04 15:30 | disposition home or self-care (01) ==
LOC: SDC 12:44 → AC 12:44
PROVIDERS: PCP Registered Nurse; Referring Provider Surgery; Visit Provider Surgery
PROC: (CPT 36561; principal; 2022-03-04 13:55)
DX: Z45.2 Encounter for adjustment and management of vascular access device (principal); C78.6 Secondary malignant neoplasm of retroperitoneum and peritoneum; C23 Malignant neoplasm of gallbladder; G89.29 Other chronic pain; K21.9 Gastro-esophageal reflux disease without esophagitis; F17.210 Nicotine dependence, cigarettes, uncomplicated; Z79.899 Other long term (current) drug therapy
CPT/HCPCS: 36561; 71045; 77001; J7120; C1788

== ENCOUNTER 2022-06-19 17:05 | Inpatient (IN) | payer MEDICAID, SELFPAY ==
[2022-06-19 17:06] VITALS: BP 107/56; PULSE 132; RESP 16; TEMP 36.7; O2SAT 97; BMI 24.2
--- NOTE | 2022-06-19 17:30 | EDS_ITS ---
HPI History of Present Illness Chief Complaint: Abn Labs Informant: patient and other (oncology Dr. Thornton) Onset/Context/Timing Onset: Days (several) Narrative Narrative: Several days onset of malaise, fevers up to 101.1, right upper quadrant discomfort, jaundice with dark urine. Had a cholecystectomy several months ago was diagnosed with cholangiocarcinoma, ended up having a common bile duct stent placed at [facility] because it was difficult to place when they attempted here at this hospital, he underwent chemotherapy that he finished about a month ago, he has been having some mild dyspnea with exertion ever since then that is unchanged, he denies any coughing or fevers until the jaundice started this week. Seen as an outpatient today, outpatient labs show that his total bilirubin went from normal 0.2 while he had the stent up to 5.2 today, his blood pressure was a little low in the office 93/58, he is 107/56 here, he has had no syncopal episodes. His white blood count was up, his heart rate was in the 120s like it is here. Patient has not been confused. [facility] Medical History Alcohol use Back pain Bile leak Cancer Chronic back pain GERD (gastroesophageal reflux disease) GI bleed History of echocardiogram History of stress test Kidney stones Leg cramps S/P neck surgery, follow-up exam Smoker Wears contact lenses Home Medications tramadol 50 mg tablet 50 mg PO Q4H PRN PRN severe pain #14 tabs 03/26/19 [Rx Last Taken 1 Week Ago ~06/12/22] folic acid 1 mg tablet 1 mg PO DAILY supplement 10/25/21 [History Last Taken 06/19/22] multivitamin 2 tab PO DAILY vitamin 10/25/21 [History Last Taken 06/19/22] pantoprazole 40 mg tablet,delayed release 40 mg PO DAILY gerd 10/25/21 [History Last Taken 06/19/22] potassium chloride 20 mEq tablet,extended release(part/cryst) 20 meq PO DAILY supplement 10/25/21 [History Last Taken 06/19/22] magnesium 200 mg tablet 400 mg PO DAILY 02/28/22 [History Last Taken 06/19/22] oxycodone 5 mg capsule 5 mg PO Q8H PRN pain 5 days #10 caps 03/04/22 [Rx Last Taken 06/19/22] trazodone 50 mg tablet 50 mg PO QHS PRN Sleep 06/19/22 [History Last Taken Unknown] Allergy/AdvReac Type Severity Reaction Status Date / Time No Known Allergies Allergy Verified 03/04/22 13:11 Family History Father Cancer lung Mother Dementia Surgical History History of ERCP Previous back surgery S/P knee surgery Status post laparoscopic cholecystectomy Social History (Updated 06/19/22 @ 20:51 by Carlito Grey) household members: spouse housing: house current occupational status: retired Smoking Status: Current every day smoker tobacco type: cigarettes alcohol intake: current substance use type: does not use ROS ROS ED Constitutional Constitutional ED: Reports chills, fever(s) and malaise Eyes Eyes: Reports change in eye color; Denies change in vision or diplopia ENT ENT ED: Denies rhinorrhea or sore throat Cardiovascular Cardiovascular: Denies chest pain or palpitations Respiratory/Chest Respiratory/Chest: Denies cough or dyspnea Gastrointestinal Gastrointestinal: Reports abdominal pain and diarrhea; Denies nausea or vomiting Genitourinary Genitourinary ED: Reports other Details: dark yellow urine ; Denies dysuria or hematuria Musculoskeletal Musculoskeletal: Denies back pain or neck pain Integumentary Denies abscess or rash Neurologic Neurologic: Denies headache(s), paresthesias or weakness Psychiatric Psychiatric: Denies anxiety or suicidal thoughts EXAM Physical Exam Const Vital Signs: 06/19/22 17:06 06/19/22 17:35 06/19/22 19:05 Temperature 98.1 F Temperature Source Temporal Pulse Rate 132 H Respiratory Rate 16 16 Respiratory Effort Normal Non-Labored Respiratory Pattern Normal Blood Pressure 107/56 L Blood Pressure Mean 73 Pulse Ox 97 99 Oxygen Delivery Method Room Air Room Air Positive well nourished and well developed General Appearance ED: well developed and NAD HEENT Reports moist mucous membranes normocephalic and atraumatic Eyes PERRL and EOMs intact bilaterally General Eye ED: Yes scleral icterus Neck full ROM and supple Resp normal respiratory effort and clear to auscultation bilaterally Cardio regular rate, regular rhythm and no murmurs GI non-distended GI Narrative: Right upper quadrant tenderness without guarding or rebound, no other abdominal tenderness. Auscultation: normoactive bowel sounds Palpation: soft Back/Spine no CVA tenderness General Back: other FROM Extremity normal to inspection General Extremety ED: Negative for edema, pulses abnormal or tenderness General Extremity: Negative for edema or pulses abnormal Neuro oriented x3, CN's II-XII intact bilaterally and no sensory deficits noted Sensorium / Orientation: awake and alert Motor Exam: strength 5/5 throughout Psych mental status grossly normal Skin no rashes or lesions noted and no wounds General Skin Exam: jaundice MDM MDM MDM Narrative Medical decision making narrative: Discussed with Dr. Vang, to see if we could care for this patient and evaluate him for biliary obstruction and/or treat that here. He asked me about the kinds of stents that he had, I do not know and I have no reports indicating such, even after I reviewed labs and CT chest that were sent from [facility] as an outpatient, I reviewed all of that. Therefore he recommended obtaining a CT of the abdomen/pelvis to evaluate his stents and to evaluate for possibly a radiographically visible reason for his obstruction. I reviewed the images. They do not show any mass or obvious sign of the biliary obstruction, he has 2 stents and they are noted. Nothing else acute. My interpretation of the CT agrees with that of the radiologist. Otherwise labs agree with what he had as an outpatient today, leukocytosis, hyperbilirubinemia in addition to an elevated alkaline phosphatase. I did blood cultures given that he was having fevers, and a lactate which is within normal limits, and he was empirically treated here with Zosyn. Discussed with hospitalist Dr. Lyman for admission after discussing with Dr. Vang, confirming we can care for the patient here he will be n.p.o. after midnight. Lab Data Attestation: I reviewed the patient's lab results. Labs: Laboratory Results - last 24 hr 06/19/22 06/19/22 06/19/22 17:42 17:42 17:42 WBC 13.6 H RBC 3.18 L Hgb 11.0 L Hct 32.6 L MCV 102.5 H MCH 34.6 H MCHC 33.7 RDW Std Deviation 54.9 H RDW Coeff of Harinder 14.5 Plt Count 320 MPV 9.6 Immature Gran % (Auto) 0.700 Neut % (Auto) 80.8 H Lymph % (Auto) 10.1 L [place] % (Auto) 8.0 Eos % (Auto) 0.1 Baso % (Auto) 0.3 Absolute Neuts (auto) 11.0 H Absolute Lymphs (auto) 1.37 Nucleated RBC % 0 PT INR Sodium 138 Potassium 3.8 Chloride 105 Carbon Dioxide 25.0 Anion Gap 8 BUN 14 Creatinine 0.93 Estim Creat Clear Calc 82.36 Est GFR (MDRD) Af Amer 105 Est GFR (MDRD) Non-Af 87 BUN/Creatinine Ratio 15.0 Glucose 111 H Lactic Acid 1.7 Calcium 8.9 Total Bilirubin 5.80 H Direct Bilirubin 4.95 H AST 56 H ALT 58 Alkaline Phosphatase 592 H Total Protein 7.0 Albumin 2.7 L Globulin 4.3 H 06/19/22 17:42 WBC RBC Hgb Hct MCV MCH MCHC RDW Std Deviation RDW Coeff of Harinder Plt Count MPV Immature Gran % (Auto) Neut % (Auto) Lymph % (Auto) [place] % (Auto) Eos % (Auto) Baso % (Auto) Absolute Neuts (auto) Absolute Lymphs (auto) Nucleated RBC % PT 13.5 INR 1.1 Sodium Potassium Chloride Carbon Dioxide Anion Gap BUN Creatinine Estim Creat Clear Calc Est GFR (MDRD) Af Amer Est GFR (MDRD) Non-Af BUN/Creatinine Ratio Glucose Lactic Acid Calcium Total Bilirubin Direct Bilirubin AST ALT Alkaline Phosphatase Total Protein Albumin Globulin Radiography Diagnostic Testing: Clinical Impression(s) from Imaging Studies Abdomen/Pelvis CT 06/19/22 18:05 IMPRESSION: Placement of biliary stents. There is intrahepatic biliary ductal dilatation present. No other acute abnormalities are identified. Electronically Signed: Ancelmo Brown MD at 19:05 EST , Discharge Plan Dx/Rx/DC Orders Clinical Impression: Acute cholangitis, Acquired hyperbilirubinemia Disposition Disposition: Acute Care [facility] Discharge Date/Time: 06/19/22 20:32
[2022-06-19 17:52] LABS: Absolute Lymphocyte Count 1.37 X10^3/uL (0.83-4.51); Basophil# 0.04 X10^3/uL; Basophil% 0.3 % (0-1); Eosinophil# 0.02 X10^3/uL; Eosinophils% 0.1 % (0-5); Hematocrit 32.6 % (40-54); Lymphocyte # 1.37 X10^3/ul (0.83-4.51); Lymphocyte % 10.1 % (19-41); Mean Corp Hgb Conc 33.7 g/dL (32-36); Mean Corpuscular Hgb 34.6 pg (27.0-32.0); Mean Corpuscular Volume 102.5 fL (80-94); Mean Platelet Vol. 9.6 fl (6.2-12.0); Monocyte# 1.09 X10^3/uL; NRBC Flagged by Analyzer 0 % (0-5); Neutrophil # 11.01 X10^3/uL (2.7-7.7); Neutrophil % 80.8 % (47-70); Platelet Count 320 K/mm3 (150-450); RBC Distribution Width CV 14.5 % (11.6-14.6); RBC Distribution Width SD 54.9 fl (35.1-43.9); Red Blood Count 3.18 M/mm3 (4.6-6.2); White Blood Count 13.6 K/mm3 (4.4-11.0)
[2022-06-19] MEDS: 0.9% Normal Saline 1,000 ML 200 ML IV ×2 (17:58→23:29)
[2022-06-19 18:04] LABS: International Normalized Ratio 1.1; Prothrombin Time (Protime)PT. 13.5 SECONDS (11.7-14.9)
--- NOTE | 2022-06-19 18:05 | CT_ITS ---
EXAM: CT ABDOMEN AND PELVIS WITH INTRAVENOUS CONTRAST CLINICAL INDICATION: jaundice/RUQpain, cholangiocarcinoma, hx CBD stent TECHNIQUE: Helically acquired images were obtained of the abdomen and pelvis with intravenous contrast. This CT exam was performed using one or more of the following dose reduction techniques: automated exposure control, adjustment of the mA and/or kV according to patient size, and/or use of iterative reconstruction technique. This report was created using [employer] report generation technology. CONTRAST: IV 100mL [id number] COMPARISON: 03/25/2019 FINDINGS: LOWER THORAX: Small right lower lobe pulmonary nodule is unchanged from the reference exam. No cardiomegaly. No significant pericardial effusion. ABDOMEN: LIVER: There is intrahepatic biliary dilatation. There are [address] extending from the right and left hepatic ducts into the transverse duodenum. GALLBLADDER AND BILE DUCTS: See above. PANCREAS: Unremarkable. No focal cystic or solid mass. SPLEEN: Unremarkable. Normal size without focal cystic or solid mass. ADRENALS: Unremarkable. No nodules. KIDNEYS AND URETERS: Unremarkable. Normal renal size and position. No hydronephrosis. STOMACH AND BOWEL: There is a small collection of gas and debris that measures 2.1 x 1.8 cm which may represent a duodenal diverticulum. Sigmoid diverticulosis with no evidence of diverticulitis. PELVIS: APPENDIX: No evidence of acute appendicitis. BLADDER: Unremarkable. REPRODUCTIVE: Unremarkable as visualized. No mass. ABDOMEN and PELVIS: INTRAPERITONEAL SPACE: Unremarkable. No ascites or other fluid collection. No free air. BONES/JOINTS: There is beam hardening artifact due to hardware in the lower lumbar spine from a posterior fusion. No suspicious lytic or blastic abnormality. SOFT TISSUES: Unremarkable. No discrete abdominal or pelvic wall hernia. VASCULATURE: Unremarkable. Abdominal aorta is non-dilated. LYMPH NODES: Unremarkable. No enlarged lymph nodes. CT/Abdomen/Pelvis W IV Cont ONLY IMPRESSION: Placement of biliary stents. There is intrahepatic biliary ductal dilatation present. No other acute abnormalities are identified. Electronically Signed: Ancelmo Brown MD at 19:05 EST ,
[2022-06-19 18:17] LABS: AST(SGOT) 56 U/L (15-37); Alanine Aminotransfer ALT/SGPT 58 U/L (16-61); Albumin, Serum 2.7 g/dL (3.2-5.0); Alkaline Phosphatase 592 U/L (45-117); Anion Gap 8 (5-15); BUN 14 mg/dL (7-18); Bilirubin, Direct 4.95 mg/dL (0.00-0.30); Calcium,Total 8.9 mg/dL (8.5-10.1); Chloride 105 mmol/L (98-107); Creatinine, Serum 0.93 mg/dL (0.70-1.30); EST Glomerular Filtration Rate 87 mL/min (>60); Est Glom Filt Rate - Afr Amer 105 mL/min (>60); Estimated Creatinine Clearance 82.36 ml/min; Globulin 4.3 g/dL (2.2-4.2); Glucose 111 mg/dL (74-106); Potassium 3.8 mmol/L (3.5-5.1); Sodium Level 138 mmol/L (136-145)
[2022-06-19 18:22] LABS: Lactic Acid 1.7 mmol/L (0.4-1.9)
[2022-06-19 19:05] VITALS: RESP 16; O2SAT 99
--- NOTE | 2022-06-19 19:51 | HP.PCM.HOS_ITS ---
HPI - General General Date of Admission: 06/19/22 Date of Service: 06/19/22 Chief Complaint: Normal lab, fever and jaundice?1 day HPI Narrative SUREKHA ARCE, is a 61 M who presents with the above. Patient is a 61-year-old with past medical history of metastatic cholangiocarcinoma, on chemotherapy and immunotherapy and follows up with [facility] oncology. Patient was diagnosed with the above after a cholecystectomy in October 2021. He started chemotherapy on 16 December 2022. He developed cholestatic jaundice and has stents placed in January in [facility] [place]. Patient states that that since his stents were placed, he has had a couple of episodes of infection related to his stents. He has had his stents changed about every 2 months. He has been having fever on and off for about 1 month. He had followed up with his oncologist today and was noted to have a fever. Blood work done in the outpatient showed elevated WBC count, elevated total bilirubin from a previous of 0.2, ALP was 639 from 319, AST was 51 from 21, ALT was 51 from 32. He was then sent to the emergency room. At the time of being seen in the emergency room, he complains of epigastric pain that appears to radiate to the right side of the chest. Denied any nausea or vomiting or diarrhea or dizziness or palpitations. His vitals in the ED showed blood pressure 107/56, heart rate was 132, respiratory to 16, temperature 98.1 F, oxygen sat was 97% on room air. His WBC was 13.6, with neutrophilia hemoglobin 11.0, platelet count 320, INR 1.1, BMP sitting stable. Lactic acid 1.7, total bilirubin 5.80, WBC 4.95, AST 56, ALT 58, ALP 592, albumin 2.7. CT of the abdomen and pelvis showed intrahepatic biliary dilatation with [address] extending from the right and left hepatic ducts into the transverse duodenum, duodenal diverticulum present. [facility] Medical History Alcohol use Back pain Bile leak Cancer Chronic back pain GERD (gastroesophageal reflux disease) GI bleed History of echocardiogram History of stress test Kidney stones Leg cramps S/P neck surgery, follow-up exam Smoker Wears contact lenses Home Medications tramadol 50 mg tablet 50 mg PO Q4H PRN PRN severe pain #14 tabs 03/26/19 [Rx Last Taken 1 Week Ago ~06/12/22] folic acid 1 mg tablet 1 mg PO DAILY supplement 10/25/21 [History Last Taken 06/19/22] multivitamin 2 tab PO DAILY vitamin 10/25/21 [History Last Taken 06/19/22] pantoprazole 40 mg tablet,delayed release 40 mg PO DAILY gerd 10/25/21 [History Last Taken 06/19/22] potassium chloride 20 mEq tablet,extended release(part/cryst) 20 meq PO DAILY supplement 10/25/21 [History Last Taken 06/19/22] magnesium 200 mg tablet 400 mg PO DAILY 02/28/22 [History Last Taken 06/19/22] oxycodone 5 mg capsule 5 mg PO Q8H PRN pain 5 days #10 caps 03/04/22 [Rx Last Taken 06/19/22] trazodone 50 mg tablet 50 mg PO QHS PRN Sleep 06/19/22 [History Last Taken Unknown] Allergy/AdvReac Type Severity Reaction Status Date / Time No Known Allergies Allergy Verified 03/04/22 13:11 Family History (Updated 06/19/22 @ 20:[address] Stephanie Lyman MD) Father Cancer lung Mother Dementia Surgical History History of ERCP Previous back surgery S/P knee surgery Status post laparoscopic cholecystectomy Social History (Updated 06/19/22 @ 20:[address] Stephanie Lyman MD) household members: spouse Smoking Status: Current every day smoker tobacco type: cigarettes alcohol intake: current substance use type: does not use ROS ROS Narrative Constitutional: Reports: Malaise, Weakness, Fatigue. Denies: Anorexia, Chills, Fever, Night Sweats, Weight Change Eyes: Denies: Blurred vision, Cataracts, Conjunctivae Inflammation, Pain, Redness, Vision Change HEENT: Denies: Difficulty Hearing, Difficulty Swallowing, Head Aches, Hearing Changes, Sinus Congestion, Sinus Drainage Cardiovascular: Denies: Chest Pain, Orthopnea, Palpitations Respiratory: Denies: Cough, Shortness of breath at rest, Sputum production Gastrointestinal: See HPI Genitourinary: Denies: Dysuria Musculoskeletal: Denies: Joint Pain, Joint stiffness, Joint swelling, Joint Tenderness Skin: Denies: Rash, Wounds Neurological: Denies: Numbness, Tingling, Focal weakness Vital Signs Vital Signs Vital Signs: 06/19/22 17:06 06/19/22 17:35 Temperature 98.1 F Temperature Source Temporal Pulse Rate 132 H Respiratory Rate 16 Respiratory Effort Normal Non-Labored Respiratory Pattern Normal Blood Pressure 107/56 L Blood Pressure Mean 73 Pulse Ox 97 Oxygen Delivery Method Room Air Weight Weight: 74.389 kg Body Mass Index (BMI) 24.2 Physical Exam Narrative Physical exam: General: Alert, Oriented x3, Cooperative, slightly jaundiced HEENT: Atraumatic Oral: Moist Mucosa Neck: Supple Lungs: Diminished to auscultation at the lung bases Cardiovascular: HS I+II, regular, no murmurs Abdomen: Bowel Sounds Present, Soft, mild epigastric tenderness without guarding or rebound tenderness Extremities: No edema Skin: No rashes, No breakdown Neurological: Grossly intact Psych/Mental Status: Appropriate Results Lab / Micro Data Result Diagrams: 06/19/22 17:42 06/19/22 17:42 Labs: Laboratory Results - last 24 hr 06/19/22 17:42: WBC 13.6 H, RBC 3.18 L, Hgb 11.0 L, Hct 32.6 L, MCV 102.5 H, MCH 34.6 H, MCHC 33.7, RDW Std Deviation 54.9 H, RDW Coeff of Harinder 14.5, Plt Count 320, MPV 9.6, Immature Gran % (Auto) 0.700, Neut % (Auto) 80.8 H, Lymph % (Auto) 10.1 L, [place] % (Auto) 8.0, Eos % (Auto) 0.1, Baso % (Auto) 0.3, Absolute Neuts (auto) 11.0 H, Absolute Lymphs (auto) 1.37, Nucleated RBC % 0 06/19/22 17:42: Sodium 138, Potassium 3.8, Chloride 105, Carbon Dioxide 25.0, Anion Gap 8, BUN 14, Creatinine 0.93, Estim Creat Clear Calc 82.36, Est GFR (MDRD) Af Amer 105, Est GFR (MDRD) Non-Af 87, BUN/Creatinine Ratio 15.0, Glucose 111 H, Calcium 8.9, Total Bilirubin 5.80 H, Direct Bilirubin 4.95 H, AST 56 H, ALT 58, Alkaline Phosphatase 592 H, Total Protein 7.0, Albumin 2.7 L, Globulin 4.3 H 06/19/22 17:42: Lactic Acid 1.7 06/19/22 17:42: PT 13.5, INR 1.1 Radiology Impression Abdomen/Pelvis CT 06/19/22 18:05 IMPRESSION: Placement of biliary stents. There is intrahepatic biliary ductal dilatation present. No other acute abnormalities are identified. Electronically Signed: Ancelmo Brown MD at 19:05 EST , Assessment & Plan Assessment/Plan (1) Cholangitis: PLAN: Plan 1.Sepsis secondary to probable acute cholangitis secondary to probable intr ahepatic biliary stents malfunction Patient presented with fever and tachycardia with elevated LFTs Patient with underlying metastatic cholangiocarcinoma, with mets to the stomach On chemotherapy and immunotherapy CT of the abdomen pelvis shows intrahepatic biliary ductal dilatation Admit to PCU, continue aggressive IV fluids, IV Zosyn, GI consult N.p.o. after midnight for ERCP/stent placement Repeat blood work in a.m. 2. Metastatic cholangiocarcinoma status postcholecystectomy, status post stents placement Finished chemotherapy about a month ago, currently on immunotherapy, follows with oncology in the outpatient Elevation in LFTs could likely be secondary to stents malfunction or intrahe patic progression of his cancer 3. Nicotine dependence, advised to quit, will put on replacement 4. DVT PPx- SCDS -no heparin products in anticipation of procedure I discussed and explained in details the various types of CODE STATUS-full code, DNR CCA, DNR CC. Patient chose to be DNR CCA, no intubation. He explained that he is at peace with his Maker. He stated he is currently going through chemotherapy at the insistence of his . If at any time, his treatments are not working, he will stop aggressive treatment. Time spent discussing CODE STATUS 16 minutes Charges/Coding Visit Charges Inpatient E&M: 25871 Init Hosp L3 Procedures Hospitalists Procedures: 69248 Advncd Care Plan 30 Min
[2022-06-19 20:07] VITALS: BP 125/76; PULSE 71; RESP 15; TEMP 36.8; O2SAT 99
[2022-06-19 20:43] VITALS: BMI 23.5
[2022-06-19 20:46] VITALS: BP 127/74; PULSE 100; RESP 16; TEMP 37.1; O2SAT 99
[2022-06-19 21:00] VITALS: BP 127/74; PULSE 100; RESP 16; TEMP 37.1; O2SAT 99
[2022-06-19] MEDS: 0.9% Saline Lock 10 ML Syringe IV (21:18)
--- NOTE | 2022-06-19 23:00 | EX.PCM.CON.G ---
HPI Consult Data Date of Consult: 06/19/22 HPI Narrative Reason for Consultation: Jaundice HPI Narrative: SUREKHA ARCE, is a Patient is a 61-year-old with past medical history of metastatic cholangiocarcinoma, on chemotherapy and immunotherapy and follows up with [facility] oncology.? Patient was diagnosed with the above after a cholecystectomy in October 2021.? He started chemotherapy on 16 December 2022.? He developed cholestatic jaundice and has stents placed in January in [facility].? Patient states that that since his stents were placed, he has had a couple of episodes of infection related to his stents.? He has had his stents changed about every 2 months.? He has been having fever on and off for about 1 month. He had followed up with his oncologist today and was noted to have a fever.? Blood work done in the outpatient showed elevated WBC count, elevated total bilirubin from a previous of 0.2, ALP was 639 from 319, AST was 51 from 21, ALT was 51 from 32.? He was then sent to the emergency room.? At the time of being seen in the emergency room, he complains of epigastric pain that appears to radiate to the right side of the chest.? Denied any nausea or vomiting or diarrhea or dizziness or palpitations. His vitals in the ED showed blood pressure 107/56, heart rate was 132, respiratory to 16, temperature 98.1 F, oxygen sat was 97% on room air.? His WBC was 13.6, with neutrophilia hemoglobin 11.0, platelet count 320, INR 1.1, BMP sitting stable.? Lactic acid 1.7, total bilirubin 5.80, WBC 4.95, AST 56, ALT 58, ALP 592, albumin 2.7. CT of the abdomen and pelvis showed intrahepatic biliary dilatation with [address] extending from the right and left hepatic ducts into the transverse duodenum, duodenal diverticulum present. I was consulted for ERCP and stent exchange along with management of a sending cholangitis. [facility] Medical History Alcohol use Back pain Bile leak Cancer Chronic back pain GERD (gastroesophageal reflux disease) GI bleed History of echocardiogram History of stress test Kidney stones Leg cramps S/P neck surgery, follow-up exam Smoker Wears contact lenses Home Medications tramadol 50 mg tablet 50 mg PO Q4H PRN PRN severe pain #14 tabs 03/26/19 [Rx Last Taken 1 Week Ago ~06/12/22] folic acid 1 mg tablet 1 mg PO DAILY supplement 10/25/21 [History Last Taken 06/19/22] multivitamin 2 tab PO DAILY vitamin 10/25/21 [History Last Taken 06/19/22] pantoprazole 40 mg tablet,delayed release 40 mg PO DAILY gerd 10/25/21 [History Last Taken 06/19/22] potassium chloride 20 mEq tablet,extended release(part/cryst) 20 meq PO DAILY supplement 10/25/21 [History Last Taken 06/19/22] magnesium 200 mg tablet 400 mg PO DAILY 02/28/22 [History Last Taken 06/19/22] oxycodone 5 mg capsule 5 mg PO Q8H PRN pain 5 days #10 caps 03/04/22 [Rx Last Taken 06/19/22] trazodone 50 mg tablet 50 mg PO QHS PRN Sleep 06/19/22 [History Last Taken Unknown] Allergy/AdvReac Type Severity Reaction Status Date / Time No Known Allergies Allergy Verified 03/04/22 13:11 Family History Father Cancer lung Mother Dementia Surgical History History of ERCP Previous back surgery S/P knee surgery Status post laparoscopic cholecystectomy Social History (Updated 06/19/22 @ 20:51 by Carlito Grey) household members: spouse housing: house current occupational status: retired Smoking Status: Current every day smoker tobacco type: cigarettes alcohol intake: current substance use type: does not use ROS ROS Narrative Constitutional: Reports: Malaise, Weakness, Fatigue. Denies: Anorexia, Chills, Fever, Night Sweats, Weight Change Eyes: Denies: Blurred vision, Cataracts, Conjunctivae Inflammation, Pain, Redness, Vision Change HEENT: Denies: Difficulty Hearing, Difficulty Swallowing, Head Aches, Hearing Changes, Sinus Congestion, Sinus Drainage Cardiovascular: Denies: Chest Pain, Orthopnea, Palpitations Respiratory: Denies: Cough, Shortness of breath at rest, Sputum production Gastrointestinal: See HPI Genitourinary: Denies: Dysuria Musculoskeletal: Denies: Joint Pain, Joint stiffness, Joint swelling, Joint Tenderness Skin: Denies: Rash, Wounds Neurological: Denies: Numbness, Tingling, Focal weakness Physical Exam Narrative General: Alert, oriented, no apparent distress HEENT: Atraumatic, normocephalic Eyes: Scleral icterus appreciated, extraocular movements grossly intact Neck: Supple Respiratory: Clear to auscultation bilaterally, normal respiratory effort Cardiovascular: Regular rate and rhythm GI: Slightly distended, minimal tenderness diffusely, no rebound, no guarding, no rigidity Extremities: No edema Musculoskeletal: Moving all extremities Neuro: No overt focal neurological deficits Skin: No rashes appreciated Psych: Cooperative Medical Records Data Medical Nutrition Assessment Dietitian: Malnutrition Criteria Met Start: 06/20/22 13:20 Freq: Status: Active Protocol: Document 06/20/22 13:20 [facility] (Rec: 06/20/22 13:21 [facility] [id number]) Nutrition Malnutrition Evidence of Malnutrition Exists Yes Malnutrition (severe): Acute Illness/Injury Evidenced By Suboptimal Energy Intake ( Severe),Weight Loss (Severe) Clinical Problem Acute Disease or Injury Related Malnutrition Etiology severe related to inadequate energy intake and complaints of not being hungry d/t cancer and pain Signs/Symptoms as evidenced by 6.4% unintentional wt loss and po intake meeting <50% of estimated nutritional needs 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 Lab / Micro Data Result Diagrams: 06/20/22 05:46 06/20/22 05:46 Labs: Laboratory Results - last 24 hr 06/19/22 17:42: WBC 13.6 H, RBC 3.18 L, Hgb 11.0 L, Hct 32.6 L, MCV 102.5 H, MCH 34.6 H, MCHC 33.7, RDW Std Deviation 54.9 H, RDW Coeff of Harinder 14.5, Plt Count 320, MPV 9.6, Immature Gran % (Auto) 0.700, Neut % (Auto) 80.8 H, Lymph % (Auto) 10.1 L, [place] % (Auto) 8.0, Eos % (Auto) 0.1, Baso % (Auto) 0.3, Absolute Neuts (auto) 11.0 H, Absolute Lymphs (auto) 1.37, Nucleated RBC % 0 06/19/22 17:42: Sodium 138, Potassium 3.8, Chloride 105, Carbon Dioxide 25.0, Anion Gap 8, BUN 14, Creatinine 0.93, Estim Creat Clear Calc 82.36, Est GFR (MDRD) Af Amer 105, Est GFR (MDRD) Non-Af 87, BUN/Creatinine Ratio 15.0, Glucose 111 H, Calcium 8.9, Total Bilirubin 5.80 H, Direct Bilirubin 4.95 H, AST 56 H, ALT 58, Alkaline Phosphatase 592 H, Total Protein 7.0, Albumin 2.7 L, Globulin 4.3 H 06/19/22 17:42: Lactic Acid 1.7 06/19/22 17:42: PT 13.5, INR 1.1 06/20/22 05:46: WBC 7.5, RBC 2.78 L, Hgb 9.5 L, Hct 28.7 L, MCV 103.2 H, MCH 34.2 H, MCHC 33.1, RDW Std Deviation 55.5 H, RDW Coeff of Harinder 14.6, Plt Count 228, MPV 9.2, Immature Gran % (Auto) 0.700, Neut % (Auto) 54.5, Lymph % (Auto) 27.0, [place] % (Auto) 16.2 H, Eos % (Auto) 1.2, Baso % (Auto) 0.4, Absolute Neuts (auto) 4.1, Absolute Lymphs (auto) 2.03, Nucleated RBC % 0 06/20/22 05:46: Sodium 136, Potassium 3.5, Chloride 104, Carbon Dioxide 26.0, Anion Gap 6, BUN 10, Creatinine 0.75, Estim Creat Clear Calc 102.12, Est GFR (MDRD) Af Amer 136, Est GFR (MDRD) Non-Af 113, BUN/Creatinine Ratio 13.4, Glucose 92, Calcium 8.4 L, Total Bilirubin 5.60 H, AST 42 H, ALT 46, Alkaline Phosphatase 475 H, Total Protein 5.9 L, Albumin 2.1 L, Globulin 3.8, Albumin/Globulin Ratio 0.6 L Radiology Impression Abdomen/Pelvis CT 06/19/22 18:05 IMPRESSION: Placement of biliary stents. There is intrahepatic biliary ductal dilatation present. No other acute abnormalities are identified. Electronically Signed: Ancelmo Brown MD at 19:05 EST , Assessment & Plan Assessment/Plan (1) Cholangitis: PLAN: Plan Sepsis secondary to probable acute cholangitis secondary to probable intrahepatic biliary stents malfunction Patient presented with fever and tachycardia with elevated LFTs Patient with underlying metastatic cholangiocarcinoma, with mets to the stomach On chemotherapy and immunotherapy CT of the abdomen pelvis shows intrahepatic biliary ductal dilatation Admit to PCU, continue aggressive IV fluids, IV Zosyn N.p.o. after midnight for ERCP/stent placement
[2022-06-20] VITALS (10 sets, daily range): BP systolic 99–132; BP diastolic 64–91; PULSE 75–102; RESP 15–18; TEMP 36.2–37.1; O2SAT 93–97; BMI 23.5
[2022-06-20] MEDS: 0.9% Normal Saline 1,000 ML 200 ML IV ×4 (04:35→22:43)
[2022-06-20 06:00] LABS: Absolute Lymphocyte Count 2.03 X10^3/uL (0.83-4.51); Absolute Neutrophil Count 4.1 X10^3/uL (2.0-7.7); Basophil# 0.03 X10^3/uL; Basophil% 0.4 % (0-1); Eosinophil# 0.09 X10^3/uL; Eosinophils% 1.2 % (0-5); Hematocrit 28.7 % (40-54); Hemoglobin 9.5 g/dL (13.0-16.5); Lymphocyte # 2.03 X10^3/ul (0.83-4.51); Mean Corp Hgb Conc 33.1 g/dL (32-36); Mean Corpuscular Hgb 34.2 pg (27.0-32.0); Mean Corpuscular Volume 103.2 fL (80-94); Mean Platelet Vol. 9.2 fl (6.2-12.0); Monocyte# 1.22 X10^3/uL; Monocyte% 16.2 % (0-10); NRBC Flagged by Analyzer 0 % (0-5); Neutrophil # 4.11 X10^3/uL (2.7-7.7); Neutrophil % 54.5 % (47-70); Platelet Count 228 K/mm3 (150-450); RBC Distribution Width CV 14.6 % (11.6-14.6); RBC Distribution Width SD 55.5 fl (35.1-43.9); Red Blood Count 2.78 M/mm3 (4.6-6.2); White Blood Count 7.5 K/mm3 (4.4-11.0)
[2022-06-20 06:33] LABS: ALB/GLOB Ratio 0.6 RATIO (0.9-2.4); AST(SGOT) 42 U/L (15-37); Alanine Aminotransfer ALT/SGPT 46 U/L (16-61); Albumin, Serum 2.1 g/dL (3.2-5.0); Alkaline Phosphatase 475 U/L (45-117); Anion Gap 6 (5-15); BUN 10 mg/dL (7-18); BUN/Creat Ratio 13.4 RATIO (10-20); Calcium,Total 8.4 mg/dL (8.5-10.1); Chloride 104 mmol/L (98-107); Creatinine, Serum 0.75 mg/dL (0.70-1.30); EST Glomerular Filtration Rate 113 mL/min (>60); Est Glom Filt Rate - Afr Amer 136 mL/min (>60); Estimated Creatinine Clearance 102.12 ml/min; Globulin 3.8 g/dL (2.2-4.2); Glucose 92 mg/dL (74-106); Potassium 3.5 mmol/L (3.5-5.1); Protein, Total 5.9 g/dL (6.4-8.2); Sodium Level 136 mmol/L (136-145)
--- NOTE | 2022-06-20 08:54 | PCM.PN.HOSP ---
Subjective Subjective Reports feeling better than he was yesterday, not presently having chest pain or shortness of breath, abdomen feeling somewhat better. Still does not feel well overall but significantly improved Objective Data Objective Data Vital Signs: Vital Signs Temp Pulse Resp BP Pulse Ox O2 Del Method 98.3 F 78 17 124/78 H 97 Room Air 06/20/22 08:28 06/20/22 08:28 06/20/22 08:28 06/20/22 08:28 06/20/22 08:28 06/20/22 08:28 Oxygen Delivery Method Room Air Weight: 72.2 kg Body Mass Index (BMI) 23.5 Intake & Output: Intake and Output for Last 24 Hours 06/18/22 06/19/22 06/20/22 23:59 23:59 23:59 Intake Total 1160 / 1380 1270 / 1270 Balance 1160 / 1380 1270 / 1270 Lab / Micro Data Result Diagrams: 06/20/22 05:46 06/20/22 05:46 Labs: Laboratory Results - last 24 hr 06/19/22 17:42: WBC 13.6 H, RBC 3.18 L, Hgb 11.0 L, Hct 32.6 L, MCV 102.5 H, MCH 34.6 H, MCHC 33.7, RDW Std Deviation 54.9 H, RDW Coeff of Harinder 14.5, Plt Count 320, MPV 9.6, Immature Gran % (Auto) 0.700, Neut % (Auto) 80.8 H, Lymph % (Auto) 10.1 L, [place] % (Auto) 8.0, Eos % (Auto) 0.1, Baso % (Auto) 0.3, Absolute Neuts (auto) 11.0 H, Absolute Lymphs (auto) 1.37, Nucleated RBC % 0 06/19/22 17:42: Sodium 138, Potassium 3.8, Chloride 105, Carbon Dioxide 25.0, Anion Gap 8, BUN 14, Creatinine 0.93, Estim Creat Clear Calc 82.36, Est GFR (MDRD) Af Amer 105, Est GFR (MDRD) Non-Af 87, BUN/Creatinine Ratio 15.0, Glucose 111 H, Calcium 8.9, Total Bilirubin 5.80 H, Direct Bilirubin 4.95 H, AST 56 H, ALT 58, Alkaline Phosphatase 592 H, Total Protein 7.0, Albumin 2.7 L, Globulin 4.3 H 06/19/22 17:42: Lactic Acid 1.7 06/19/22 17:42: PT 13.5, INR 1.1 06/20/22 05:46: WBC 7.5, RBC 2.78 L, Hgb 9.5 L, Hct 28.7 L, MCV 103.2 H, MCH 34.2 H, MCHC 33.1, RDW Std Deviation 55.5 H, RDW Coeff of Harinder 14.6, Plt Count 228, MPV 9.2, Immature Gran % (Auto) 0.700, Neut % (Auto) 54.5, Lymph % (Auto) 27.0, [place] % (Auto) 16.2 H, Eos % (Auto) 1.2, Baso % (Auto) 0.4, Absolute Neuts (auto) 4.1, Absolute Lymphs (auto) 2.03, Nucleated RBC % 0 06/20/22 05:46: Sodium 136, Potassium 3.5, Chloride 104, Carbon Dioxide 26.0, Anion Gap 6, BUN 10, Creatinine 0.75, Estim Creat Clear Calc 102.12, Est GFR (MDRD) Af Amer 136, Est GFR (MDRD) Non-Af 113, BUN/Creatinine Ratio 13.4, Glucose 92, Calcium 8.4 L, Total Bilirubin 5.60 H, AST 42 H, ALT 46, Alkaline Phosphatase 475 H, Total Protein 5.9 L, Albumin 2.1 L, Globulin 3.8, Albumin/Globulin Ratio 0.6 L Radiography Diagnostic Testing: Radiology Impression Abdomen/Pelvis CT 06/19/22 18:05 IMPRESSION: Placement of biliary stents. There is intrahepatic biliary ductal dilatation present. No other acute abnormalities are identified. Electronically Signed: Ancelmo Brown MD at 19:05 EST , Physical Exam Narrative General: Alert, oriented, no apparent distress HEENT: Atraumatic, normocephalic Eyes: Scleral icterus appreciated, extraocular movements grossly intact Neck: Supple Respiratory: Clear to auscultation bilaterally, normal respiratory effort Cardiovascular: Regular rate and rhythm GI: Slightly distended, minimal tenderness diffusely, no rebound, no guarding, no rigidity Extremities: No edema Musculoskeletal: Moving all extremities Neuro: No overt focal neurological deficits Skin: No rashes appreciated Psych: Cooperative Assessment & Plan Assessment/Plan (1) Cholangitis: PLAN: Plan 61-year-old male with a history of GERD, GI bleed, kidney stones, metastatic cholangiocarcinoma on chemotherapy and immunotherapy and follows of the [facility] oncology who presented 06/19/2022 for fever and jaundice x1 day. He was diagnosed with cholangiocarcinoma after cholecystectomy in October 2021 and started chemotherapy in December. He developed cholestatic jaundice and had stents placed in January at [facility] since the stents were placed he has had a couple episodes of infection related to them. He has his stents changed about every 2 months, fever on and off for 1 month. He had a follow-up today with oncologist and was noted to be febrile, he had an elevated white count as well as elevated alk phos and liver enzymes and was sent to the ED. In ED heart rate was 132 and he had abnormal liver function, CT of the abdomen pelvis showed intrahepatic biliary dilation [address] extending from the right and left hepatic ducts into the transverse duodenum with duodenal diverticulum present. Hospitalist consulted for admission #Sepsis secondary to probable acute cholangitis secondary to probable intrahepatic biliary stent malfunction in setting of underlying metastatic cholangiocarcinoma with mets to the stomach Fever, tachycardia, elevated LFTs CT abdomen pelvis shows intrahepatic biliary ductal dilation Aggressive IV fluids, IV Zosyn, GI consult N.p.o. after midnight for ERCP/stent today #Metastatic cholangiocarcinoma status postcholecystectomy and stent placement Finished chemotherapy a month ago and still on immunotherapy, follows with [facility] oncology #DVT ppx: SCDs Skye Méndez MD Time spent in the patient's overall evaluation,decision-making process, review of diagnostic data, adjustment of management, discussion with other providers, nursing nursing and ancillary staff involved in patient's care documentation, 30 Minutes Charges/Coding Visit Charges Inpatient E&M: 18913 Subs Hosp L2
[2022-06-20] MEDS: 0.9% Saline Lock 10 ML Syringe IV ×3 (09:08→22:00)
--- NOTE | 2022-06-20 13:00 | CASEMGMT ---
RN CM Face to Face with patient for initial transition planning/care coordination assessment. RN CM introduced self and role at [facility]. Patient lying in bed, alert and oriented. Patient willing to participate in assessment and is able to answer all questions appropriately. Care providers, pharmacy, and demographics verified. Patient wishes to discharge home, denies need for home health at this time. Patient states he has no further needs or concerns at this time. CM to follow for discharge planning needs that may arise. PCP: Debbie IT INFRASTRUCTURE ARCHITECT Specialists: Hillary, oncologist [facility]erred [facility]acy: [facility] Insurance: Ashley Prescription Benefit: yes Living Will/HPOA: none, would like to complete, SW notified LNOK: daughter, son Living Arrangements: Patient lives alone but has been staying at daughter's house in her basement. Patient is independent and able to ambulate stairs. Transportation: self, daughter DME/HHC: Patient denies having DME. No previous HHC or SNF. Disposition Plan: Patient to discharge home with family support and follow-up plans in place. Marti WOODS, RN, CM
--- NOTE | 2022-06-20 14:54 | EKG12_ITS ---
Test Reason : PREOP Blood Pressure : / mmHG Vent. Rate : 083 BPM Atrial Rate : 083 BPM P-R Int : 136 ms QRS Dur : 150 ms QT Int : 414 ms P-R-T Axes : 080 225 048 degrees QTc Int : 486 ms Normal sinus rhythm Right bundle branch block Abnormal ECG When compared with ECG of 01-JAN-2022 17:48, Criteria for Septal infarct are no longer Present Confirmed by ASHU STEPHENS, ISABEL ([id number]), material expeditor DORIS DEMPSEY ([id number]) on 06/24/2022 9:03:55 AM Referred By: FANNIE Confirmed By:ISABEL WAKEFIELD MD
[2022-06-20] MEDS: Lactated Ringers 1,000 ML 15 ML IV (14:57)
--- NOTE | 2022-06-20 16:27 | RAD_ITS ---
INDICATION: PAIN EXAMINATION/TECHNIQUE: Images assigned to this order were provided in conjunction with a surgical procedure performed in the operating room/procedural suite during ERCP examination with standard protocol in projection.. Please see operative report for details. Fluoroscopic images: 16 Fluoroscopic time: 379.2 seconds Cumulative dose: NA, mGym2; 211.06; mGy COMPARISON: No relevant comparisons available.. FINDINGS: Initial examination document [address] Imaging documents retrograde access to the biliary ductal system, likely removal of the previous stent sac, and balloon sweep with interval placement of 2 additional stents projecting in normal position. There is persistent biliary ductal dilatation. Refer to full procedural report for details. RAD/ERCP Biliary/Pancreas IMPRESSION: 1. ERCP examination with apparent exchange of 2 biliary stents, balloon sweep, and stents projecting in normal position. Electronically Signed: Yoel Abdul MD at 19:21 EST ,
--- NOTE | 2022-06-20 17:37 | OP.ERCP_ITS ---
Patient Name: Glenn Johnson Procedure Date: 06/20/2022 3:58 PM Date of : 1960 Age: 61 Procedure: ERCP Indications: Elevated liver enzymes, Jaundice Providers: Joel Vang DO Medicines: Monitored Anesthesia Care Patient Profile: This is a 61 year old male. Refer to note in patient chart for documentation of history and physical. Patient has symptoms of acute jaundice. He is status post ERCP for biliary evaluation and ERCP for stent within the past three months. Complications: No immediate complications. Procedure: Pre-Anesthesia Assessment: - Prior to the procedure, a History and Physical was performed, and patient medications and allergies were reviewed. The patient is competent. The risks and benefits of the procedure and the sedation options and risks were discussed with the patient. All questions were answered and informed consent was obtained. Patient identification and proposed procedure were verified by the physician in the pre-procedure area. Mental Status Examination: alert and oriented. Airway Examination: normal oropharyngeal airway and neck mobility. Respiratory Examination: clear to auscultation. CV Examination: normal. Prophylactic Antibiotics: The patient does not require prophylactic antibiotics. Prior Anticoagulants: The patient has taken no previous anticoagulant or antiplatelet agents. ASA Grade Assessment: II - A patient with mild systemic disease. After reviewing the risks and benefits, the patient was deemed in satisfactory condition to undergo the procedure. The anesthesia plan was to use general anesthesia. Immediately prior to administration of medications, the patient was re-assessed for adequacy to receive sedatives. The heart rate, respiratory rate, oxygen saturations, blood pressure, adequacy of pulmonary ventilation, and response to care were monitored throughout the procedure. The physical status of the patient was re-assessed after the procedure. After obtaining informed consent, the scope was passed under direct vision. Throughout the procedure, the patient's blood pressure, pulse, and oxygen saturations were monitored continuously. The Duodenoscope was introduced through the mouth, and advanced to the duodenum and used to inject contrast into the bile duct. The ERCP was accomplished without difficulty. The patient tolerated the procedure well. Scope In: 4:29:26 PM Scope Out: 5:21:50 PM Total Procedure Duration Time 0 hours 52 minutes 24 seconds Findings: The apricot packer film was normal. The esophagus was successfully intubated under direct vision. The scope was advanced to a normal major papilla in the descending duodenum without detailed examination of the pharynx, larynx and associated structures, and upper GI tract. The upper GI tract was grossly normal. The bile duct was deeply cannulated with the short-nosed traction sphincterotome. Contrast was injected. I personally interpreted the bile duct images. The flow of contrast through the ducts was poor. Image quality was adequate. Contrast extended to the entire biliary tree. A straight Roadrunner wire was passed into the biliary tree. A 5 mm biliary sphincterotomy was made with a traction (standard) sphincterotome using ERBE electrocautery. There was no post-sphincterotomy bleeding. The biliary tree was swept with a 15 mm balloon starting at the bifurcation. Sludge was swept from the duct. All stones were removed. Two stents were removed from the biliary tree using a snare. The stents were found to be occluded via the water column test. The hepatic duct bifurcation was successfully dilated with a 6-7-8 mm balloon (to a maximum balloon size of 8 mm) dilator. Two 7 Fr by 15 cm temporary stents were placed 5 cm into the common bile duct. Fluid, necrotic tissue and pus flowed through the stents. The stents were in good position. Impression: - Choledocholithiasis was found. Complete removal was accomplished by biliary sphincterotomy and balloon extraction. - Increase gross of hilar cholangiocarcinoma. - A biliary sphincterotomy was performed. - The biliary tree was swept. - Two stents were removed from the biliary tree. - The hepatic duct bifurcation was successfully dilated. - Two temporary stents were placed into the common bile duct. Recommendation: Increase gross of hilar cholangiocarcinoma. Continue antibiotics and trend CMP. He may need longer stents placed pending his liver enzymes. Continue antibiotics. Full liquid diet tonight advance tolerated as tolerated tomorrow. Procedure Code(s): --- Professional --- 40510, Endoscopic retrograde cholangiopancreatography (ERCP); with removal and exchange of stent(s), biliary or pancreatic duct, including pre- and post-dilation and guide wire passage, when performed, including sphincterotomy, when performed, each stent exchanged 96147, 73, Endoscopic retrograde cholangiopancreatography (ERCP); with removal and exchange of stent(s), biliary or pancreatic duct, including pre- and post-dilation and guide wire passage, when performed, including sphincterotomy, when performed, each stent exchanged 65126, 59, Endoscopic retrograde cholangiopancreatography (ERCP); with trans-endoscopic balloon dilation of biliary/pancreatic duct(s) or of ampulla (sphincteroplasty), including sphincterotomy, when performed, each duct 59906, 51, Endoscopic retrograde cholangiopancreatography (ERCP); with removal of calculi/debris from biliary/pancreatic duct(s) 99983, 26, Endoscopic catheterization of the biliary ductal system, radiological supervision and interpretation CPT copyright 2017 [employer]. All rights reserved. The codes documented in this report are preliminary and upon community affairs director review may be revised to meet current compliance requirements. Joel Vang DO 06/20/2022 5:37:18 PM This report has been signed electronically. Number of Addenda: 0 Note Initiated On: 06/20/2022 3:58 PM
--- NOTE | 2022-06-20 17:37 | OP.CCLET_ITS ---
06/20/2022 Donna Lewis Re : ERCP procedure for Glenn Johnson Dear Debbie This procedure was performed on Monday, June 20, 2022. My impressions and recommendations are as follows: Impressions : - Choledocholithiasis was found. Complete removal was accomplished by biliary sphincterotomy and balloon extraction. - Increase gross of hilar cholangiocarcinoma. - A biliary sphincterotomy was performed. - The biliary tree was swept. - Two stents were removed from the biliary tree. - The hepatic duct bifurcation was successfully dilated. - Two temporary stents were placed into the common bile duct. Recommendations : Increase gross of hilar cholangiocarcinoma. Continue antibiotics and trend CMP. He may need longer stents placed pending his liver enzymes. Continue antibiotics. Full liquid diet tonight advance tolerated as tolerated tomorrow. My findings are described in the full procedure note, which is enclosed. If I can be of further assistance, please feel free to contact me at . Sincerely, Joel Vang, 06/20/2022 5:37:18 PM This report has been signed electronically.
[2022-06-20] MEDS: Ensure Plus High Protein 120 ML LIQUID PO (18:36)
[2022-06-20] MEDS: traZODone 50 MG Tablet PO (23:10)
[2022-06-21] MEDS: 0.9% Normal Saline 1,000 ML 200 ML IV ×2 (03:49→08:49)
[2022-06-21 03:55] VITALS: BP 146/80; PULSE 62; RESP 16; TEMP 37.1; O2SAT 96
[2022-06-21 03:57] VITALS: BP 146/80; PULSE 62; RESP 16; TEMP 37.1; O2SAT 96
[2022-06-21 05:46] LABS: Absolute Lymphocyte Count 0.96 X10^3/uL (0.83-4.51); Absolute Neutrophil Count 2.4 X10^3/uL (2.0-7.7); Basophil# 0.01 X10^3/uL; Basophil% 0.3 % (0-1); Hematocrit 30.4 % (40-54); Hemoglobin 9.7 g/dL (13.0-16.5); Lymphocyte # 0.96 X10^3/ul (0.83-4.51); Lymphocyte % 25.5 % (19-41); Mean Corp Hgb Conc 31.9 g/dL (32-36); Mean Corpuscular Hgb 33.3 pg (27.0-32.0); Mean Corpuscular Volume 104.5 fL (80-94); Mean Platelet Vol. 9.2 fl (6.2-12.0); Monocyte# 0.34 X10^3/uL; NRBC Flagged by Analyzer 0 % (0-5); Neutrophil # 2.44 X10^3/uL (2.7-7.7); Neutrophil % 64.7 % (47-70); Platelet Count 290 K/mm3 (150-450); RBC Distribution Width CV 14.5 % (11.6-14.6); RBC Distribution Width SD 55.7 fl (35.1-43.9); Red Blood Count 2.91 M/mm3 (4.6-6.2); White Blood Count 3.8 K/mm3 (4.4-11.0)
[2022-06-21 06:13] LABS: ALB/GLOB Ratio 0.5 RATIO (0.9-2.4); AST(SGOT) 28 U/L (15-37); Alanine Aminotransfer ALT/SGPT 40 U/L (16-61); Albumin, Serum 2.1 g/dL (3.2-5.0); Alkaline Phosphatase 454 U/L (45-117); Anion Gap 7 (5-15); BUN 12 mg/dL (7-18); BUN/Creat Ratio 15.8 RATIO (10-20); Calcium,Total 8.5 mg/dL (8.5-10.1); Chloride 104 mmol/L (98-107); Creatinine, Serum 0.76 mg/dL (0.70-1.30); EST Glomerular Filtration Rate 110 mL/min (>60); Est Glom Filt Rate - Afr Amer 133 mL/min (>60); Estimated Creatinine Clearance 100.78 ml/min; Glucose 215 mg/dL (74-106); Potassium 4.6 mmol/L (3.5-5.1); Protein, Total 6.1 g/dL (6.4-8.2); Sodium Level 137 mmol/L (136-145)
--- NOTE | 2022-06-21 07:00 | PN_ITS ---
Subjective Subjective Patient is doing well without any abdominal pain. He is tolerating a diet. He has noticed that his urine is almost normal color. Objective Data Objective Data Vital Signs: Vital Signs Temp Pulse Resp BP Pulse Ox O2 Del Method 98.2 F 80 18 128/76 H 99 Room Air 06/21/22 10:00 06/21/22 10:00 06/21/22 10:00 06/21/22 10:00 06/21/22 10:00 06/21/22 10:00 Oxygen Delivery Method Room Air Weight: 163 lb 2.273 oz Body Mass Index (BMI) 23.5 Intake & Output: Intake and Output for Last 24 Hours 06/19/22 06/20/22 06/21/22 23:59 23:59 23:59 Intake Total 1160 / 1380 5350 / 5350 3498.13 / 3498.13 Balance 1160 / 1380 5350 / 5350 3498.13 / 3498.13 Lab / Micro Data Result Diagrams: 06/21/22 05:30 06/21/22 05:30 Labs: Laboratory Results - last 24 hr 06/21/22 05:30: WBC 3.8 L, RBC 2.91 L, Hgb 9.7 L, Hct 30.4 L, MCV 104.5 H, MCH 33.3 H, MCHC 31.9 L, RDW Std Deviation 55.7 H, RDW Coeff of Harinder 14.5, Plt Count 290, MPV 9.2, Immature Gran % (Auto) 0.500, Neut % (Auto) 64.7, Lymph % (Auto) 25.5, [place] % (Auto) 9.0, Eos % (Auto) 0.0, Baso % (Auto) 0.3, Absolute Neuts (auto) 2.4, Absolute Lymphs (auto) 0.96, Nucleated RBC % 0 06/21/22 05:30: Sodium 137, Potassium 4.6, Chloride 104, Carbon Dioxide 26.0, Anion Gap 7, BUN 12, Creatinine 0.76, Estim Creat Clear Calc 100.78, Est GFR (MDRD) Af Amer 133, Est GFR (MDRD) Non-Af 110, BUN/Creatinine Ratio 15.8, Glucose 215 H, Calcium 8.5, Total Bilirubin 3.20 H, AST 28, ALT 40, Alkaline Phosphatase 454 H, Total Protein 6.1 L, Albumin 2.1 L, Globulin 4.0, Albumin/Globulin Ratio 0.5 L Physical Exam Narrative General: Alert, oriented, no apparent distress HEENT: Atraumatic, normocephalic Eyes: Scleral icterus appreciated, extraocular movements grossly intact Neck: Supple Respiratory: Clear to auscultation bilaterally, normal respiratory effort Cardiovascular: Regular rate and rhythm GI: Slightly distended, minimal tenderness diffusely, no rebound, no guarding, no rigidity Extremities: No edema Musculoskeletal: Moving all extremities Neuro: No overt focal neurological deficits Skin: No rashes appreciated Psych: Cooperative Assessment & Plan Assessment/Plan (1) Cholangitis: PLAN: Plan Sepsis secondary to probable acute cholangitis secondary to probable i ntrahepatic biliary stents malfunction Patient presented with fever and tachycardia with elevated LFTs Patient with underlying metastatic cholangiocarcinoma, with mets to the stomach On chemotherapy and immunotherapy CT of the abdomen pelvis shows intrahepatic biliary ductal dilatation Status post ERCP with stent replacement and everything improving regarding his LFTs and CBC. Recommend continue antibiotic therapy for 14 days total and follow-up in a clinic. Charges/Coding Visit Charges Inpatient E&M: 89282 Subs Hosp L2
[2022-06-21 07:46] VITALS: BP 146/80; PULSE 62; RESP 16; TEMP 37.1; O2SAT 96
--- NOTE | 2022-06-21 08:52 | PCM.PN.HOSP ---
Objective Data Objective Data Vital Signs: Vital Signs Temp Pulse Resp BP Pulse Ox O2 Del Method 98.7 F 62 16 146/80 H 96 Room Air 06/21/22 07:46 06/21/22 07:46 06/21/22 07:46 06/21/22 07:46 06/21/22 07:46 06/21/22 07:46 Oxygen Delivery Method Room Air Weight: 74 kg Body Mass Index (BMI) 23.5 Intake & Output: Intake and Output for Last 24 Hours 06/19/22 06/20/22 06/21/22 23:59 23:59 23:59 Intake Total 1160 / 1380 5350 / 5350 1050 / 1050 Balance 1160 / 1380 5350 / 5350 1050 / 1050 Medical Nutrition Assessment Dietitian: Malnutrition Criteria Met Start: 06/20/22 13:20 Freq: Status: Active Protocol: Document 06/20/22 13:20 SLA (Rec: 06/20/22 13:21 SLA [id number]) Nutrition Malnutrition Evidence of Malnutrition Exists Yes Malnutrition (severe): Acute Illness/Injury Evidenced By Suboptimal Energy Intake ( Severe),Weight Loss (Severe) Clinical Problem Acute Disease or Injury Related Malnutrition Etiology severe related to inadequate energy intake and complaints of not being hungry d/t cancer and pain Signs/Symptoms as evidenced by 6.4% unintentional wt loss and po intake meeting <50% of 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 Lab / Micro Data Result Diagrams: 06/21/22 05:30 06/21/22 05:30 Labs: Laboratory Results - last 24 hr 06/21/22 05:30: WBC 3.8 L, RBC 2.91 L, Hgb 9.7 L, Hct 30.4 L, MCV 104.5 H, MCH 33.3 H, MCHC 31.9 L, RDW Std Deviation 55.7 H, RDW Coeff of Harinder 14.5, Plt Count 290, MPV 9.2, Immature Gran % (Auto) 0.500, Neut % (Auto) 64.7, Lymph % (Auto) 25.5, [place] % (Auto) 9.0, Eos % (Auto) 0.0, Baso % (Auto) 0.3, Absolute Neuts (auto) 2.4, Absolute Lymphs (auto) 0.96, Nucleated RBC % 0 06/21/22 05:30: Sodium 137, Potassium 4.6, Chloride 104, Carbon Dioxide 26.0, Anion Gap 7, BUN 12, Creatinine 0.76, Estim Creat Clear Calc 100.78, Est GFR (MDRD) Af Amer 133, Est GFR (MDRD) Non-Af 110, BUN/Creatinine Ratio 15.8, Glucose 215 H, Calcium 8.5, Total Bilirubin 3.20 H, AST 28, ALT 40, Alkaline Phosphatase 454 H, Total Protein 6.1 L, Albumin 2.1 L, Globulin 4.0, Albumin/Globulin Ratio 0.5 L Radiography Diagnostic Testing: Radiology Impression Endo Retro Cholangiopancreatogram 06/20/22 16:27 IMPRESSION: 1. ERCP examination with apparent exchange of 2 biliary stents, balloon sweep, and stents projecting in normal position. Electronically Signed: Yoel Abdul MD at 19:21 EST , Assessment & Plan Assessment/Plan (1) Cholangitis: PLAN: Plan 61-year-old male with a history of GERD, GI bleed, kidney stones, metastatic cholangiocarcinoma on chemotherapy and immunotherapy and follows of the [facility] oncology who presented 06/19/2022 for fever and jaundice x1 day. He was diagnosed with cholangiocarcinoma after cholecystectomy in October 2021 and started chemotherapy in December. He developed cholestatic jaundice and had stents placed in January at [facility] since the stents were placed he has had a couple episodes of infection related to them. He has his stents changed about every 2 months, fever on and off for 1 month. He had a follow-up today with oncologist and was noted to be febrile, he had an elevated white count as well as elevated alk phos and liver enzymes and was sent to the ED. In ED heart rate was 132 and he had abnormal liver function, CT of the abdomen pelvis showed intrahepatic biliary dilation [address] extending from the right and left hepatic ducts into the transverse duodenum with duodenal diverticulum present. Hospitalist consulted for admission #Sepsis secondary to probable acute cholangitis secondary to probable intrahepatic biliary stent malfunction in setting of underlying metastatic cholangiocarcinoma with mets to the stomach Fever, tachycardia, elevated LFTs CT abdomen pelvis shows intrahepatic biliary ductal dilation Aggressive IV fluids, IV Zosyn, GI consult N.p.o. after midnight for ERCP/stent today -06/21: WBC count improved and is actually slightly low, vitally is improved. Continue current antibiotics. LFTs and ALP downtrending, blood cultures no growth to date. ERCP yesterday performed with 2 biliary stent exchanges with temporary stents, biliary tree sweep, biliary sphincterotomy, hepatic duct bifurcation dilated. Did also note increase gross of hilar cholangiocarcinoma #Metastatic cholangiocarcinoma status postcholecystectomy and stent placement Finished chemotherapy a month ago and still on immunotherapy, [facility] #DVT ppx: Padmini Méndez MD Time spent in the patient's overall evaluation,decision-making process, review of diagnostic data, adjustment of management, discussion with other providers, nursing nursing and ancillary staff involved in patient's care documentation, 30 Minutes
[2022-06-21] MEDS: Ensure Plus High Protein 120 ML LIQUID PO ×2 (08:59→11:20)
[2022-06-21] MEDS: Potassium Chloride Oral Tablet 20 MEQ PO (09:00)
[2022-06-21] MEDS: Multivitamins,Therapeutic Tablet 2 TABLET PO (09:00)
[2022-06-21] MEDS: Magnesium Chloride 64 MG Delay Rel.Tablet 128 MG PO (09:01)
[2022-06-21] MEDS: 0.9% Saline Lock 10 ML Syringe IV ×2 (09:02→17:14)
[2022-06-21 10:00] VITALS: BP 128/76; PULSE 80; RESP 18; TEMP 36.8; O2SAT 99
--- NOTE | 2022-06-21 16:17 | DCINST_ITS ---
Discharge Instructions Diet Discharge Diet: Light diet - advance as tolerated Activity Discharge Activity: Return to Normal Activity Follow Up Care Test Results: Test results from this visit will be discussed in further detail at your follow- up appointment, if applicable. Discharge Plan Admission Admit Date/Time: 06/19/22 19:46 Primary Reason for Your Visit: Fever and abnormal labs Attending Provider: Skye Méndez Primary Care Provider: Donna Lewis NP Consulting Providers: Stephanie Lyman Instructions Patient Instructions: ERCP Dc Additional Instructions / Restrictions: DISCHARGE INSTRUCTIONS PLEASE READ *Please take this with you to your next doctors appointment* ?You will need to follow-up with Dr. Vang with GI in his office upon discharge. Please call his office to schedule your hospital follow-up appointment (ph. [phone]) -You will be discharged with antibiotics for 13 more days, this will be sent to your preferred pharmacy on file, will take your first dose tonight -Please continue to follow with your cancer doctor upon discharge from the hospital -Would recommend lab work (CMP) to check your liver function in 3 to 5 days through your primary care physician's office. Please call their office upon discharge to obtain order for lab work. -Please call your primary care provider's office upon discharge to schedule a hospital follow up within 1 week. -For any concerning signs or symptoms please call 911 or proceed to the nearest emergency department Discharge Orders/Prescriptions Prescriptions: New amoxicillin-pot clavulanate 875-125 mg tablet 1 tab PO BID 13 Days Qty: 27 0RF Rx Instructions: Begin evening of 06/21 Continued tramadol 50 MG tablet 50 mg PO Q4H PRN PRN (Reason: severe pain) Qty: 14 0RF multivitamin Tablet 2 tab PO DAILY potassium chloride 20 MEQ tablet,ER particles/crystals 20 meq PO DAILY pantoprazole 40 MG tablet,delayed release (DR/EC) 40 mg PO DAILY folic acid 1 MG tablet 1 mg PO DAILY magnesium 200 mg Tablet 400 mg PO DAILY oxycodone 5 mg capsule 5 mg PO Q8H PRN (Reason: pain) 5 Days Qty: 10 0RF trazodone 50 mg tablet 50 mg PO QHS PRN (Reason: Sleep) Referrals / Follow Up: Joel Vang DO [Med Staff - Active Staff] - See Referral Note (You will need to follow-up with Dr. Vang with GI in his office upon discharge. Please call his office to schedule your hospital follow-up appointment (ph. [phone])) Donna Lewis NP, GOVERNMENT RELATIONS MANAGER-C [Primary Care Provider] - Within 1 Week Disposition Disposition (needs filled in before D/C Order can be placed): Home, Self Care
--- NOTE | 2022-06-21 16:22 | PCM.DC.SUM ---
Providers Date of Admission: 06/19/22 Date of Discharge: 06/21/22 Primary Care Physician: ROXANA Solis Consultations 06/19/22 20:42 Consult: Gastroenterology Routine Consulting Provider: [facility] Reason for Consult: Cholestatic jaundice EMERGENT Consult: No MD Notified: Yes Date Notified: 06/20/22 Time Notified: 06:37 Method of Notification: Text Reason For Visit: ELEVATED LFTS Diagnosis Discharge Diagnosis (1) Cholangitis: Status: Acute Code(s): K83.09 - Other cholangitis Plan #Sepsis secondary to acute cholangitis secondary to intrahepatic biliary stent malfunction in setting of underlying metastatic cholangiocarcinoma with mets to the stomach #Metastatic cholangiocarcinoma status postcholecystectomy and stent placement Medications at Discharge Home Medications tramadol 50 mg tablet 50 mg PO Q4H PRN PRN severe pain #14 tabs 03/26/19 folic acid 1 mg tablet 1 mg PO DAILY supplement 10/25/21 multivitamin 2 tab PO DAILY vitamin 10/25/21 pantoprazole 40 mg tablet,delayed release 40 mg PO DAILY gerd 10/25/21 potassium chloride 20 mEq tablet,extended release(part/cryst) 20 meq PO DAILY supplement 10/25/21 magnesium 200 mg tablet 400 mg PO DAILY supplement 02/28/22 oxycodone 5 mg capsule 5 mg PO Q8H PRN pain 5 days #10 caps 03/04/22 trazodone 50 mg tablet 50 mg PO QHS PRN Sleep 06/19/22 amoxicillin 875 mg-potassium clavulanate 125 mg tablet 1 tab PO BID 13 days #27 tabs 06/21/22 Hospital Course Operations - (ERCP with stent exchange, biliary tree sweep, biliary sphincterotomy, hepatic duct bifurcation dilation) Summary of Care Provided Minutes Spent on Discharge: 32 Hospital Course: 61-year-old male with a history of GERD, GI bleed, kidney stones, metastatic cholangiocarcinoma on chemotherapy and immunotherapy and follows of the [facility] oncology who presented 06/19/2022 for fever and jaundice x1 day.? He was diagnosed with cholangiocarcinoma after cholecystectomy in October 2021 and started chemotherapy in December.? He developed cholestatic jaundice and had stents placed in January at [facility] since the stents were placed he has had a couple episodes of infection related to them.? He has his stents changed about every 2 months, fever on and off for 1 month.? He had a follow-up today with oncologist and was noted to be febrile, he had an elevated white count as well as elevated alk phos and liver enzymes and was sent to the ED.? In ED heart rate was 132 and he had abnormal liver function, CT of the abdomen pelvis showed intrahepatic biliary dilation [address] extending from the right and left hepatic ducts into the transverse duodenum with duodenal diverticulum present.? Hospitalist consulted for admission After admission he improved with fluids and IV Zosyn. He had an ERCP on 06/20 with 2 biliary stent exchanges and temporary stents placed, biliary tree sweep, biliary sphincterotomy, hepatic duct bifurcation dilation in the ERCP also noted increased hilar cholangiocarcinoma. Patient's clinical status and liver function improved. He was cleared for advancing diet by GI and did well with this. On day of discharge he reported abdomen significantly improved and overall he felt better. Discussed with GI and he was cleared for DC, before DC instructions could be signed he left. Given important nature of antibiotics called and left message on his primary number with antibiotics and which pharmacy as well as contact information for GI by and recommendation to have liver function tests through PCP. Physical Exam Narrative General: Alert, oriented, no apparent distress HEENT: Atraumatic, normocephalic Eyes: Scleral icterus appreciated, extraocular movements grossly intact Neck: Supple Respiratory: Clear to auscultation bilaterally, normal respiratory effort Cardiovascular: Regular rate and rhythm GI: Slightly distended, minimal tenderness diffusely, no rebound, no guarding, no rigidity Extremities: No edema Musculoskeletal: Moving all extremities Neuro: No overt focal neurological deficits Skin: No rashes appreciated Psych: Cooperative Medical Records Data Medical Nutrition Assessment Dietitian: Malnutrition Criteria Met Start: 06/20/22 13:20 Freq: Status: Active Protocol: Document 06/20/22 13:20 [facility] (Rec: 06/20/22 13:21 [facility] [id number]) Nutrition Malnutrition Evidence of Malnutrition Exists Yes Malnutrition (severe): Acute Illness/Injury Evidenced By Suboptimal Energy Intake ( Severe),Weight Loss (Severe) Clinical Problem Acute Disease or Injury Related Malnutrition Etiology severe related to inadequate energy intake and complaints of not being hungry d/t cancer and pain Signs/Symptoms as evidenced by 6.4% unintentional wt loss and po intake meeting <50% 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 Weight / BMI Weight Weight: 74 kg Body Mass Index (BMI) 23.5 ABG / Lab / Microbiology Data Result Diagrams: 06/21/22 05:30 06/21/22 05:30 Laboratory: Laboratory Results - last 24 hr 06/21/22 05:30: WBC 3.8 L, RBC 2.91 L, Hgb 9.7 L, Hct 30.4 L, MCV 104.5 H, MCH 33.3 H, MCHC 31.9 L, RDW Std Deviation 55.7 H, RDW Coeff of Harinder 14.5, Plt Count 290, MPV 9.2, Immature Gran % (Auto) 0.500, Neut % (Auto) 64.7, Lymph % (Auto) 25.5, [place] % (Auto) 9.0, Eos % (Auto) 0.0, Baso % (Auto) 0.3, Absolute Neuts (auto) 2.4, Absolute Lymphs (auto) 0.96, Nucleated RBC % 0 06/21/22 05:30: Sodium 137, Potassium 4.6, Chloride 104, Carbon Dioxide 26.0, Anion Gap 7, BUN 12, Creatinine 0.76, Estim Creat Clear Calc 100.78, Est GFR (MDRD) Af Amer 133, Est GFR (MDRD) Non-Af 110, BUN/Creatinine Ratio 15.8, Glucose 215 H, Calcium 8.5, Total Bilirubin 3.20 H, AST 28, ALT 40, Alkaline Phosphatase 454 H, Total Protein 6.1 L, Albumin 2.1 L, Globulin 4.0, Albumin/Globulin Ratio 0.5 L Radiography Diagnostic Testing: Radiology Impression Endo Retro Cholangiopancreatogram 06/20/22 16:27 IMPRESSION: 1. ERCP examination with apparent exchange of 2 biliary stents, balloon sweep, and stents projecting in normal position. Electronically Signed: Yoel Abdul MD at 19:21 EST , D/C Instructions Discharge Diet: Light diet - advance as tolerated Meaningful Use Info Meaningful Use Diagnoses (Choose all that apply): None applicable Discharge Plan Admission Admit Date/Time: 06/19/22 19:46 Primary Reason for Your Visit: Fever and abnormal labs Attending Provider: Skye Méndez Primary Care Provider: Donna Lewis NP Consulting Providers: Stephanie Lyman Instructions Patient Instructions: ERCP Dc Additional Instructions / Restrictions: DISCHARGE INSTRUCTIONS PLEASE READ *Please take this with you to your next doctors appointment* ?You will need to follow-up with Dr. Vang with GI in his office upon discharge. Please call his office to schedule your hospital follow-up appointment (ph. [phone]) -You will be discharged with antibiotics for 13 more days, this will be sent to your preferred pharmacy on file, will take your first dose tonight -Please continue to follow with your cancer doctor upon discharge from the hospital -Would recommend lab work (CMP) to check your liver function in 3 to 5 days through your primary care physician's office. Please call their office upon discharge to obtain order for lab work. -Please call your primary care provider's office upon discharge to schedule a hospital follow up within 1 week. -For any concerning signs or symptoms please call 911 or proceed to the nearest emergency department Discharge Orders/Prescriptions Prescriptions: New amoxicillin-pot clavulanate 875-125 mg tablet 1 tab PO BID 13 Days Qty: 27 0RF Rx Instructions: Begin evening of 06/21 Continued tramadol 50 MG tablet 50 mg PO Q4H PRN PRN (Reason: severe pain) Qty: 14 0RF multivitamin Tablet 2 tab PO DAILY potassium chloride 20 MEQ tablet,ER particles/crystals 20 meq PO DAILY pantoprazole 40 MG tablet,delayed release (DR/EC) 40 mg PO DAILY folic acid 1 MG tablet 1 mg PO DAILY magnesium 200 mg Tablet 400 mg PO DAILY oxycodone 5 mg capsule 5 mg PO Q8H PRN (Reason: pain) 5 Days Qty: 10 0RF trazodone 50 mg tablet 50 mg PO QHS PRN (Reason: Sleep) Referrals / Follow Up: Joel Vang DO [Med Staff - Active Staff] - See Referral Note (You will need to follow-up with Dr. Vagn with GI in his office upon discharge. Please call his office to schedule your hospital follow-up appointment (ph. [phone])) Donna Lewis HEALTH INFORMATICS SPECIALIST, HEALTH INFORMATICS SPECIALIST-C [Primary Care Provider] - Within 1 Week Disposition Disposition (needs filled in before D/C Order can be placed): Home, Self Care Charges/Coding Visit Charges Inpatient E&M: 41746 Disch Hosp >30min
--- NOTE | 2022-06-21 16:50 | CASEMGMT ---
Social Work Note SW met with patient and introduced herself and role as [facility] Md Ophthalmologist. Patient was seated on the side of his bed dressed in stress clothes and agreeable to speak with SW. SW inquired about patient's interest in completing AD paperwork. Patient declined, explaining he is ready to discharge kee. SW inquired if patient would like information about AD to complete them at another time, patient declined. No other needs voiced at this time. SW informed RN patient's request to discharge, RN is aware and is following up with MD. Plan: Patient discharging home, declined Advanced Directives. Fiona PEARSON, LEYDI
--- NOTE | 2022-06-21 17:24 | NURSING ---
Pt waiting several hours to be discharged. Pt impatient and states he is leaving now. Pt advised leaving is [facility]I.
--- NOTE | 2022-06-21 17:30 | NURSING ---
Patient left prior to receiving discharge instructions. Discharge instructions placed in mail.
== END 2022-06-21 17:24 | disposition home or self-care (01) | DRG 721 ==
LOC: ED 19:50 → PCU 20:10
PROVIDERS: Internal Medicine Gastroenterology; Admitting Provider Internal Medicine; Emergency Provider Emergency Medicine; PCP Registered Nurse; Visit Provider Internal Medicine
PROC: 0FPB8DZ Removal of Intraluminal Device from Hepatobiliary Duct, Via Natural or Artificial Opening Endoscopic (ICD-10-PCS; CPT 43260; principal; 2022-06-20 15:10)
DX: T85.79XA Infection and inflammatory reaction due to other internal prosthetic devices, implants and grafts, initial encounter (principal); A41.9 Sepsis, unspecified organism; C78.89 Secondary malignant neoplasm of other digestive organs; K80.33 Calculus of bile duct with acute cholangitis with obstruction; C22.1 Intrahepatic bile duct carcinoma; K21.9 Gastro-esophageal reflux disease without esophagitis; T85.858A Stenosis due to other internal prosthetic devices, implants and grafts, initial encounter; F17.210 Nicotine dependence, cigarettes, uncomplicated; K57.10 Diverticulosis of small intestine without perforation or abscess without bleeding; Y83.8 Other surgical procedures as the cause of abnormal reaction of the patient, or of later complication, without mention of misadventure at the time of the procedure; G89.29 Other chronic pain; Z66 Do not resuscitate; Z90.49 Acquired absence of other specified parts of digestive tract
CPT/HCPCS: 36415; 74177; 74330; 76000; 80048; 80053; 80076; 83605; 85025; 85610; 87040; 93005; 97802; 99285; J7030; J7120; Q9967; A4216; J1610; J2405

== ENCOUNTER 2022-07-12 15:15 | Emergency (ER) | payer MEDICAID, SELFPAY ==
[2022-07-12 15:15] VITALS: BP 95/71; PULSE 132; RESP 18; TEMP 36.2; O2SAT 96; BMI 22.1
--- NOTE | 2022-07-12 15:40 | CT_ITS ---
EXAM: CT ABDOMEN AND PELVIS WITH INTRAVENOUS CONTRAST CLINICAL INDICATION: abdominal pain TECHNIQUE: Helically acquired images were obtained of the abdomen and pelvis with intravenous contrast. This CT exam was performed using one or more of the following dose reduction techniques: automated exposure control, adjustment of the mA and/or kV according to patient size, and/or use of iterative reconstruction technique. This report was created using [employer] report generation technology. CONTRAST: IV 100mL [id number] COMPARISON: 06/19/2022 FINDINGS: LOWER THORAX: Unremarkable. Lung bases are clear. No cardiomegaly. No significant pericardial effusion. ABDOMEN: LIVER: Unremarkable. Homogeneous. No focal mass. GALLBLADDER AND BILE DUCTS: Stable biliary stents extending from the right and left hepatic ducts through the common bile duct into the proximal duodenum. Mild decrease in the intrahepatic bile duct dilation since the previous exam. No calcified gallstones. No gallbladder distention or wall edema. PANCREAS: Unremarkable. No focal cystic or solid mass. SPLEEN: Unremarkable. Normal size without focal cystic or solid mass. ADRENALS: Unremarkable. No nodules. KIDNEYS AND URETERS: Small nonobstructing stone in the left kidney measuring 3 mm. Normal renal size and position. STOMACH AND BOWEL: Diverticular disease of the colon but no diverticulitis. PELVIS: APPENDIX: The appendix is normal. BLADDER: Unremarkable. REPRODUCTIVE: Unremarkable as visualized. No mass. ABDOMEN and PELVIS: INTRAPERITONEAL SPACE: Unremarkable. No ascites or other fluid collection. No free air. BONES/JOINTS: Degenerative changes of the spine. Posterior fusion from L4 through S1. No suspicious lytic or blastic abnormality. SOFT TISSUES: Unremarkable. No discrete abdominal or pelvic wall hernia. VASCULATURE: Atherosclerotic changes and ectasia of the abdominal aorta but no aneurysm. LYMPH NODES: Unremarkable. No enlarged lymph nodes. CT/Abdomen/Pelvis W IV Cont ONLY IMPRESSION: 1. Stable biliary stents extending from the right and left hepatic ducts through the common bile duct into the proximal duodenum. Mild decrease in the intrahepatic bile duct dilation since the previous exam. 2. Small nonobstructing stone in the left kidney measuring 3 mm. Electronically Signed: Eliot King MD at 17:22 EST ,
--- NOTE | 2022-07-12 15:46 | EX.ED.DYSGE1 ---
[facility] <ROXANA Guzman - Last Filed: 07/12/22 20:08> History of Present Illness Chief Complaint: Abd Pain Narrative Narrative: Patient is a 61-year-old male with history of stomach cancer newly diagnosed in October 2021 who presents to the emergency department with 4 days of right lower quadrant abdominal pain. Patient sees oncology here, received a CT scan of the abdomen pelvis yesterday, there was concerning for possible appendicitis, other abnormality in the right lower quadrant. The patient was told to come to the emergency department for further evaluation. [facility] <ROXANA Guzman - Last Filed: 07/12/22 20:08> [facility] Medical History Alcohol use Back pain Bile leak Cancer Chronic back pain GERD (gastroesophageal reflux disease) GI bleed History of echocardiogram History of stress test Kidney stones Leg cramps S/P neck surgery, follow-up exam Smoker Wears contact lenses Home Medications tramadol 50 mg tablet 50 mg PO Q4H PRN PRN severe pain #14 tabs 03/26/19 [Rx Last Taken 1 Week Ago ~06/12/22] folic acid 1 mg tablet 1 mg PO DAILY supplement 10/25/21 [History Last Taken 06/19/22] multivitamin 2 tab PO DAILY vitamin 10/25/21 [History Last Taken 06/19/22] pantoprazole 40 mg tablet,delayed release 40 mg PO DAILY gerd 10/25/21 [History Last Taken 06/19/22] potassium chloride 20 mEq tablet,extended release(part/cryst) 20 meq PO DAILY supplement 10/25/21 [History Last Taken 06/19/22] magnesium 200 mg tablet 400 mg PO DAILY supplement 02/28/22 [History Last Taken 06/19/22] oxycodone 5 mg capsule 5 mg PO Q8H PRN pain 5 days #10 caps 03/04/22 [Rx Last Taken 06/19/22] trazodone 50 mg tablet 50 mg PO QHS PRN Sleep 06/19/22 [History Last Taken Unknown] amoxicillin 875 mg-potassium clavulanate 125 mg tablet 1 tab PO BID 13 days #27 tabs 06/21/22 [Rx Last Taken Unknown] Allergy/AdvReac Type Severity Reaction Status Date / Time No Known Allergies Allergy Verified 07/12/22 15:15 Family History Father Cancer lung Mother Dementia Surgical History History of ERCP Previous back surgery S/P knee surgery Status post laparoscopic cholecystectomy Social History (Updated 06/19/22 @ 20:51 by Carlito Grey) household members: spouse housing: house current occupational status: retired Smoking Status: Current every day smoker tobacco type: cigarettes alcohol intake: current substance use type: does not use ROS <ROXANA Guzman - Last Filed: 07/12/22 20:08> ROS ED ROS Narrative Constitutional: Negative for fever, chills, weight loss, weakness Eyes: Negative for vision loss, vision change, double vision ENT: Negative for any sore throat, ear pain, congestion Cardiovascular: Negative for any chest pain, tightness, palpitations Respiratory: Negative for any cough, sputum production, hemoptysis, dyspnea, dyspnea on exertion, orthopnea Gastrointestinal: Negative for any nausea, vomiting, diarrhea, constipation, blood in stool, blood in vomit. Positive for abdominal pain, nausea : Negative for any urinary frequency, dysuria, retention, blood in urine Muscle skeletal: Negative for any muscle joint pain, stiffness, myalgias, arthralgias, neck pain, back pain Neurological: Negative for any headache, syncope, numbness or tingling, dizziness Skin: Negative for any rashes, lumps, itching, abrasions, lacerations Psychiatric: Negative for any depression, anxiety, stress, suicidal ideation, homicidal ideation Hematologic: Negative for any easy bruising, excessive bruising, easy bleeding Allergies: Negative for any eczema, hives, rash EXAM <ROXANA Guzman - Last Filed: 07/12/22 20:08> Physical Exam Narrative Exam Narrative: Vital signs reviewed. HEET: Head normocephalic atraumatic, TMs clear bilaterally. Posterior pharynx is clear, moist mucous membranes. Nares clear bilaterally. Neck: Supple with no lymphadenopathy or tenderness. No signs of meningismus, negative jolt sign. Cardiac: Regular rate and rhythm no murmurs gallops or rubs, equal peripheral pulses bilaterally. Respiratory: Lungs clear to auscultation bilaterally. No chest tenderness. Abdomen: Soft, nondistended. No abdominal bruit or pulsatile masses. No hepatosplenomegaly. Positive for right lower quadrant pain on palpation, positive for periumbilical pain. No evidence of peritoneal signs. Hypoactive bowel sounds Extremities: No peripheral edema, no signs of gross trauma or deformity. Active full range of motion of all extremities. Neuro: Cranial nerves II through XII intact, no focal neurological deficits. Skin: Clean dry and intact with no rash, purpura, petechiae, vesicles or pustules. Backs/flank: No CVA tenderness, no midline spinal tenderness, no deformity. Psych: Normal mood and affect. No SI, HI or acute psychosis. Const Vital Signs: 07/12/22 15:15 07/12/22 16:12 07/12/22 18:17 Temperature 97.1 F L 97.9 F Temperature Source Temporal Temporal Pulse Rate 132 H 75 91 Respiratory Rate 18 16 18 Blood Pressure 95/71 117/59 L 108/75 Blood Pressure Mean 79 78 86 Pulse Ox 96 93 93 Oxygen Delivery Method Room Air Room Air Room Air 07/12/22 20:15 Temperature Temperature Source Pulse Rate 99 Respiratory Rate 16 Blood Pressure 103/73 Blood Pressure Mean 83 Pulse Ox 96 Oxygen Delivery Method Room Air Positive well nourished and well developed General Appearance ED: well developed <Milton Ivy MD - Last Filed: 07/12/22 20:55> Physical Exam Const Vital Signs: 07/12/22 15:15 07/12/22 16:12 07/12/22 18:17 Temperature 97.1 F L 97.9 F Temperature Source Temporal Temporal Pulse Rate 132 H 75 91 Respiratory Rate 18 16 18 Blood Pressure 95/71 117/59 L 108/75 Blood Pressure Mean 79 78 86 Pulse Ox 96 93 93 Oxygen Delivery Method Room Air Room Air Room Air 07/12/22 20:15 Temperature Temperature Source Pulse Rate 99 Respiratory Rate 16 Blood Pressure 103/73 Blood Pressure Mean 83 Pulse Ox 96 Oxygen Delivery Method Room Air MDM <ROXANA Guzman - Last Filed: 07/12/22 20:08> MDM Lab Data Labs: Laboratory Results - last 24 hr 07/12/22 07/12/22 07/12/22 15:45 16:00 16:00 WBC 6.7 RBC 3.37 L Hgb 11.0 L Hct 34.3 L MCV 101.8 H MCH 32.6 H MCHC 32.1 RDW Std Deviation 50.8 H RDW Coeff of Harinder 13.5 Plt Count 308 MPV 9.3 Immature Gran % (Auto) 0.300 Neut % (Auto) 55.2 Lymph % (Auto) 29.5 [place] % (Auto) 10.9 H Eos % (Auto) 3.7 Baso % (Auto) 0.4 Absolute Neuts (auto) 3.7 Absolute Lymphs (auto) 1.97 Nucleated RBC % 0 Sodium 140 Potassium 3.7 Chloride 105 Carbon Dioxide 28.0 Anion Gap 7 BUN 18 Creatinine 0.76 Estim Creat Clear Calc 96.66 Est GFR (MDRD) Af Amer 134 Est GFR (MDRD) Non-Af 110 BUN/Creatinine Ratio 23.7 H Glucose 131 H Lactic Acid Calcium 9.7 Total Bilirubin 1.80 H Direct Bilirubin 1.57 H AST 32 ALT 40 Alkaline Phosphatase 468 H Total Protein 7.3 Albumin 3.0 L Globulin 4.3 H Lipase 159 Urine Color Yellow Urine Clarity Sl. Cloudy Urine pH 6.5 Ur Specific [place] 1.020 Urine Protein 30 H Urine Glucose (UA) Normal Urine Ketones 15 H Urine Occult Blood 10 H Urine Nitrite Negative Urine Bilirubin 3 H Urine Urobilinogen 8 H Ur Leukocyte Esterase 100 H Urine RBC 0 SEEN Urine WBC 5-10 SEEN Ur Squamous Epith Cells 0 SEEN Calcium Oxalate Crystal 1+ Urine Bacteria 1+ Urine Mucus 0 SEEN 07/12/22 16:00 WBC RBC Hgb Hct MCV MCH MCHC RDW Std Deviation RDW Coeff of Harinder Plt Count MPV Immature Gran % (Auto) Neut % (Auto) Lymph % (Auto) [place] % (Auto) Eos % (Auto) Baso % (Auto) Absolute Neuts (auto) Absolute Lymphs (auto) Nucleated RBC % Sodium Potassium Chloride Carbon Dioxide Anion Gap BUN Creatinine Estim Creat Clear Calc Est GFR (MDRD) Af Amer Est GFR (MDRD) Non-Af BUN/Creatinine Ratio Glucose Lactic Acid 1.2 Calcium Total Bilirubin Direct Bilirubin AST ALT Alkaline Phosphatase Total Protein Albumin Globulin Lipase Urine Color Urine Clarity Urine pH Ur Specific [place] Urine Protein Urine Glucose (UA) Urine Ketones Urine Occult Blood Urine Nitrite Urine Bilirubin Urine Urobilinogen Ur Leukocyte Esterase Urine RBC Urine WBC Ur Squamous Epith Cells Calcium Oxalate Crystal Urine Bacteria Urine Mucus Radiography Diagnostic Testing: Clinical Impression(s) from Imaging Studies Abdomen/Pelvis CT 07/12/22 15:40 IMPRESSION: 1. Stable biliary stents extending from the right and left hepatic ducts through the common bile duct into the proximal duodenum. Mild decrease in the intrahepatic bile duct dilation since the previous exam. 2. Small nonobstructing stone in the left kidney measuring 3 mm. Electronically Signed: Eliot King MD at 17:22 EST , ADDENDUM: 07/12/221825 IMPRESSION: undefined ADDENDUM: 07/12/221951 IMPRESSION: undefined Treatment and Re-Evaluation Narrative: All radiologic examinations were read, reviewed by the emergency department attending. From these reads, a plan of care will be put in place. Patient appears generally well, patient presents to the emergency department for concern of acute appendicitis from a CT scan that was done yesterday. Patient did receive a full abdominal work-up here as well as IV fluids, IV morphine, IV Zofran. Patient's laboratory values show a white blood count of 6.7, no shift. Patient's chemistries show slight elevation in total bilirubin 1.8 however this is improved from 06/21/2022 which was 3.20. Patient's alkaline phosphatase was 468 however looking back from January 01, 2022, this is consistent. Patient's lipase was 159. Patient did receive a CT scan of the abdomen pelvis, the original read was stable biliary stents extending from the right and left hepatic ducts through the common bile duct into the proximal duodenum. Mild decrease in the intrahepatic bile duct dilatation since previous exam. Small nonobstructing stone in left kidney measuring 3 mm. Normal appendix. Secondary to the discrepancy between the 2 CT scans, I did reach out to surgery. He looked at his films and would like me to speak to the radiologist. I spoke with the radiologist who read the scan, we looked through it together, he states that there is some slight edema, possible stranding of the distal part of the appendix. This is suspicious for appendicitis given the patient's history. On reassessment, the patient felt well. I reached back out to surgery, secondary to this finding, he will come in and evaluate the patient. The surgeon Dr. Morton did come in and evaluate the patient. He did speak with the radiologist again.The radiologist him spoke at length as well as looked at other scans. There was another addendum placed and it shows that when the CT of the abdomen pelvis from June 19, 2022 there is no significant will change at the appearance the distal appendix. This is dilated to 1.3 cm at the time as well. Minimal adjacent stranding. At this time, there is no evidence of suspect acute appendicitis. Patient will follow-up with Dr. Morton this upcoming week. The surgeon did speak with the patient given return precautions. Patient is in agreement, patient will be discharged. We will follow-up with surgery this week. <Milton Ivy MD - Last Filed: 07/12/22 20:55> [facility] MDM Narrative Medical decision making narrative: I have personally performed a face to face assessment of the patient and have reviewed the VIOLETA Note. I performed a substantive portion of the visit including all aspects of the following. My licona findings include: History is right lower quadrant pain, history of outpatient CT that showed questionable inguinal hernia with appendicitis. History of biliary stent replacement a few weeks ago. Tenderness to right lower quadrant according to patient x1 month Exam is afebrile. Vital signs noted. Mild tenderness to palpation right lower quadrant. No palpable hernia. Medical Decision Making check labs. Check CT scan. Discussed with radiologist. Discussed with oncology who requested review of imaging by surgeon. Discussed with Dr. Morton. Rediscussed with radiology, head with Dr. Santino saxena. It was felt that this is a chronic finding of chronic inflammation, and that the patient did not have an acute appendicitis. Patient will follow-up with general surgery early next week. Discharge. Other additions or changes: [None] Lab Data Attestation: I reviewed the patient's lab results. Labs: Laboratory Results - last 24 hr 07/12/22 07/12/22 07/12/22 15:45 16:00 16:00 WBC 6.7 RBC 3.37 L Hgb 11.0 L Hct 34.3 L MCV 101.8 H MCH 32.6 H MCHC 32.1 RDW Std Deviation 50.8 H RDW Coeff of Harinder 13.5 Plt Count 308 MPV 9.3 Immature Gran % (Auto) 0.300 Neut % (Auto) 55.2 Lymph % (Auto) 29.5 [place] % (Auto) 10.9 H Eos % (Auto) 3.7 Baso % (Auto) 0.4 Absolute Neuts (auto) 3.7 Absolute Lymphs (auto) 1.97 Nucleated RBC % 0 Sodium 140 Potassium 3.7 Chloride 105 Carbon Dioxide 28.0 Anion Gap 7 BUN 18 Creatinine 0.76 Estim Creat Clear Calc 96.66 Est GFR (MDRD) Af Amer 134 Est GFR (MDRD) Non-Af 110 BUN/Creatinine Ratio 23.7 H Glucose 131 H Lactic Acid Calcium 9.7 Total Bilirubin 1.80 H Direct Bilirubin 1.57 H AST 32 ALT 40 Alkaline Phosphatase 468 H Total Protein 7.3 Albumin 3.0 L Globulin 4.3 H Lipase 159 Urine Color Yellow Urine Clarity Sl. Cloudy Urine pH 6.5 Ur Specific [place] 1.020 Urine Protein 30 H Urine Glucose (UA) Normal Urine Ketones 15 H Urine Occult Blood 10 H Urine Nitrite Negative Urine Bilirubin 3 H Urine Urobilinogen 8 H Ur Leukocyte Esterase 100 H Urine RBC 0 SEEN Urine WBC 5-10 SEEN Ur Squamous Epith Cells 0 SEEN Calcium Oxalate Crystal 1+ Urine Bacteria 1+ Urine Mucus 0 SEEN 07/12/22 16:00 WBC RBC Hgb Hct MCV MCH MCHC RDW Std Deviation RDW Coeff of Harinder Plt Count MPV Immature Gran % (Auto) Neut % (Auto) Lymph % (Auto) [place] % (Auto) Eos % (Auto) Baso % (Auto) Absolute Neuts (auto) Absolute Lymphs (auto) Nucleated RBC % Sodium Potassium Chloride Carbon Dioxide Anion Gap BUN Creatinine Estim Creat Clear Calc Est GFR (MDRD) Af Amer Est GFR (MDRD) Non-Af BUN/Creatinine Ratio Glucose Lactic Acid 1.2 Calcium Total Bilirubin Direct Bilirubin AST ALT Alkaline Phosphatase Total Protein Albumin Globulin Lipase Urine Color Urine Clarity Urine pH Ur Specific [place] Urine Protein Urine Glucose (UA) Urine Ketones Urine Occult Blood Urine Nitrite Urine Bilirubin Urine Urobilinogen Ur Leukocyte Esterase Urine RBC Urine WBC Ur Squamous Epith Cells Calcium Oxalate Crystal Urine Bacteria Urine Mucus Radiography Diagnostic Testing: Clinical Impression(s) from Imaging Studies Abdomen/Pelvis CT 07/12/22 15:40 IMPRESSION: 1. Stable biliary stents extending from the right and left hepatic ducts through the common bile duct into the proximal duodenum. Mild decrease in the intrahepatic bile duct dilation since the previous exam. 2. Small nonobstructing stone in the left kidney measuring 3 mm. Electronically Signed: Eliot King MD at 17:22 EST , ADDENDUM: 07/12/221825 IMPRESSION: undefined ADDENDUM: 07/12/221951 IMPRESSION: undefined Discharge Plan Triage Chief Complaint: Abd Pain ED Midlevel Provider: Tyron Nelson ED Provider: Milton Ivy Dx/Rx/DC Orders Clinical Impression: Abdominal pain Instructions: Abdominal Pain, ED Pain, Acute, Uncertain Cause Prescriptions: No Action tramadol 50 MG tablet 50 mg PO Q4H PRN PRN (Reason: severe pain) Qty: 14 0RF multivitamin Tablet 2 tab PO DAILY potassium chloride 20 MEQ tablet,ER particles/crystals 20 meq PO DAILY pantoprazole 40 MG tablet,delayed release (DR/EC) 40 mg PO DAILY folic acid 1 MG tablet 1 mg PO DAILY magnesium 200 mg Tablet 400 mg PO DAILY oxycodone 5 mg capsule 5 mg PO Q8H PRN (Reason: pain) 5 Days Qty: 10 0RF trazodone 50 mg tablet 50 mg PO QHS PRN (Reason: Sleep) amoxicillin-pot clavulanate 875-125 mg tablet 1 tab PO BID 13 Days Qty: 27 0RF Rx Instructions: Begin evening of 06/21 Primary Care Provider: Donna Lewis NP Referrals: Ted Morton MD [Med Staff - Active Staff] - Donna Lewis NP, [employer] [Primary Care Provider] - Activity Restrictions/Additional Instructions: The surgeon Dr. Ted Morton wants you to follow-up with him this upcoming week. Please return for any worsening pain, fever chills nausea vomiting. Disposition Disposition: Home, Self Care Discharge Date/Time: 07/12/22 20:22
[2022-07-12 15:55] LABS: Mucous, Urine 0 SEEN /hpf (<or=2+); Red Blood Cells-Urine 0 SEEN /hpf (0-5); Squamous Epithelial Cells - UA 0 SEEN /hpf (0-5)
[2022-07-12 16:01] LABS: Color, Urine Yellow (Yellow); Glucose, Dipstick Normal (Normal); Ketone-Dipstick 15 mg/dl (Negative); Leukocyte Esterase-Dipstick 100 /ul (Negative); Nitrite-Dipstick Negative (Negative); Occult Blood-Urine 10 /ul (Negative); Protein-Dipstick 30 mg/dl (Negative); Urine Clarity Sl. Cloudy (Clear); Urine Urobilinogen 8 mg/dl (Normal); Urine pH 6.5 (5.0 - 8.0)
[2022-07-12 16:02] LABS: Urine Bilirubin Dipstick 3 mg/dL (Negative)
[2022-07-12] MEDS: Ondansetron 4 MG/2 ML Vial IV (16:08)
[2022-07-12] MEDS: Morphine 4 MG/ML Syringe IV (16:08)
[2022-07-12] MEDS: 0.9% Normal Saline 1,000 ML 1000 ML IV (16:09)
[2022-07-12 16:11] LABS: Absolute Lymphocyte Count 1.97 X10^3/uL (0.83-4.51); Absolute Neutrophil Count 3.7 X10^3/uL (2.0-7.7); Basophil# 0.03 X10^3/uL; Basophil% 0.4 % (0-1); Eosinophil# 0.25 X10^3/uL; Eosinophils% 3.7 % (0-5); Hematocrit 34.3 % (40-54); Lymphocyte # 1.97 X10^3/ul (0.83-4.51); Lymphocyte % 29.5 % (19-41); Mean Corp Hgb Conc 32.1 g/dL (32-36); Mean Corpuscular Hgb 32.6 pg (27.0-32.0); Mean Corpuscular Volume 101.8 fL (80-94); Mean Platelet Vol. 9.3 fl (6.2-12.0); Monocyte# 0.73 X10^3/uL; Monocyte% 10.9 % (0-10); NRBC Flagged by Analyzer 0 % (0-5); Neutrophil # 3.67 X10^3/uL (2.7-7.7); Neutrophil % 55.2 % (47-70); Platelet Count 308 K/mm3 (150-450); RBC Distribution Width CV 13.5 % (11.6-14.6); RBC Distribution Width SD 50.8 fl (35.1-43.9); Red Blood Count 3.37 M/mm3 (4.6-6.2); White Blood Count 6.7 K/mm3 (4.4-11.0)
[2022-07-12 16:12] VITALS: BP 117/59; PULSE 75; RESP 16; TEMP 36.6; O2SAT 93
[2022-07-12 16:17] LABS: Bacteria 1+ /hpf (None Seen); Calcium Oxalate Crystals Ur 1+ /hpf (<or=2+); White Blood Cells 5-10 SEEN /hpf (0-5)
[2022-07-12 16:28] LABS: AST(SGOT) 32 U/L (15-37); Alanine Aminotransfer ALT/SGPT 40 U/L (16-61); Alkaline Phosphatase 468 U/L (45-117); Anion Gap 7 (5-15); BUN 18 mg/dL (7-18); BUN/Creat Ratio 23.7 RATIO (10-20); Bilirubin, Direct 1.57 mg/dL (0.00-0.30); Calcium,Total 9.7 mg/dL (8.5-10.1); Chloride 105 mmol/L (98-107); Creatinine, Serum 0.76 mg/dL (0.70-1.30); EST Glomerular Filtration Rate 110 mL/min (>60); Est Glom Filt Rate - Afr Amer 134 mL/min (>60); Estimated Creatinine Clearance 96.66 ml/min; Globulin 4.3 g/dL (2.2-4.2); Glucose 131 mg/dL (74-106); Lipase 159 U/L (73-393); Potassium 3.7 mmol/L (3.5-5.1); Protein, Total 7.3 g/dL (6.4-8.2); Sodium Level 140 mmol/L (136-145)
[2022-07-12 16:33] LABS: Lactic Acid 1.2 mmol/L (0.4-1.9)
[2022-07-12 18:17] VITALS: BP 108/75; PULSE 91; RESP 18; O2SAT 93
--- NOTE | 2022-07-12 20:02 | HP.PCM_ITS ---
HPI - General General Date of Service: 07/12/22 Chief Complaint: Chronic abdominal pain HPI Narrative SUREKHA JOHNSON, is a 61 M who presents to [facility] after being directed by his plasterer tender/oncologist, Dr. Thornton, to present for emergent evaluation given a notification from radiology that a CT of the abdomen pelvis obtained yesterday was read as concerning for possible acute appendicitis within a right inguinal hernia. Patient is actively undergoing immunotherapy for a diagnosis of metastatic cholangiocarcinoma following an incidental finding of cancer with a laparoscopic cholecystectomy by Dr. Saavedra in October 2021. He has had multiple ERCP procedures due to recurrent infections and stent malfunctions, but reports that things have been better following stent replacement earlier this month. He states that he has had a general, constant abdominal pain for over 1 month. He denies any associated nausea but states that this nagging pain has led to weight loss all of this year. Mr. Johnson has not been able to correlate this symptom to any time of day or any relationship to eating. He denies ever being told that he has gastric irritation with his prior ERCP procedures. He does confirm that he has had intermittent tenderness of his right groin, but denies any bulging. He states flatly that his abdominal pain has actually been better than it has been in some time over the past couple of days. Patient's ER work-up is notable for CBC with normal white blood cell count and absence of left shift. CT imaging was repeated and was read, initially, as normal with no abnormal anatomy. However, patient's oncologist telephoned e [facility] and asked for reevaluation of this study based on outside imaging read. With further review of the imaging and further understanding of patient's history, radiology did place an addendum stating that they identified dilation of the appendix and limited stranding at the tip that was concerning for possible acute appendicitis. [facility] Medical History Alcohol use Back pain Bile leak Cancer Chronic back pain GERD (gastroesophageal reflux disease) GI bleed History of echocardiogram History of stress test Kidney stones Leg cramps S/P neck surgery, follow-up exam Smoker Wears contact lenses Home Medications tramadol 50 mg tablet 50 mg PO Q4H PRN PRN severe pain #14 tabs 03/26/19 [Rx Last Taken 1 Week Ago ~06/12/22] folic acid 1 mg tablet 1 mg PO DAILY supplement 10/25/21 [History Last Taken 06/19/22] multivitamin 2 tab PO DAILY vitamin 10/25/21 [History Last Taken 06/19/22] pantoprazole 40 mg tablet,delayed release 40 mg PO DAILY gerd 10/25/21 [History Last Taken 06/19/22] potassium chloride 20 mEq tablet,extended release(part/cryst) 20 meq PO DAILY supplement 10/25/21 [History Last Taken 06/19/22] magnesium 200 mg tablet 400 mg PO DAILY supplement 02/28/22 [History Last Taken 06/19/22] oxycodone 5 mg capsule 5 mg PO Q8H PRN pain 5 days #10 caps 03/04/22 [Rx Last Taken 06/19/22] trazodone 50 mg tablet 50 mg PO QHS PRN Sleep 06/19/22 [History Last Taken Unknown] amoxicillin 875 mg-potassium clavulanate 125 mg tablet 1 tab PO BID 13 days #27 tabs 06/21/22 [Rx Last Taken Unknown] Allergy/AdvReac Type Severity Reaction Status Date / Time No Known Allergies Allergy Verified 07/12/22 15:15 Family History Father Cancer lung Mother Dementia Surgical History History of ERCP Previous back surgery S/P knee surgery Status post laparoscopic cholecystectomy Social History (Updated 06/19/22 @ 20:51 by Carlito Grey) household members: spouse housing: house current occupational status: retired Smoking Status: Current every day smoker tobacco type: cigarettes alcohol intake: current substance use type: does not use Vital Signs Vital Signs Vital Signs: 07/12/22 15:15 07/12/22 16:12 07/12/22 18:17 Temperature 97.1 F L 97.9 F Temperature Source Temporal Temporal Pulse Rate 132 H 75 91 Respiratory Rate 18 16 18 Blood Pressure 95/71 117/59 L 108/75 Blood Pressure Mean 79 78 86 Pulse Ox 96 93 93 Oxygen Delivery Method Room Air Room Air Room Air Weight Weight: 149 lb 8 oz Body Mass Index (BMI) 22.1 Physical Exam Const alert, oriented x3 and no apparent distress Constitutional Narrative: Patient moves fluidly, sitting up in bed without using his hands, and does not demonstrate any grimacing or signs of distress General Appearance: cooperative Resp normal respiratory effort GI GI Narrative: Hirsute abdominal wall, nondistended, soft, nontender over McBurney's point. Mild tenderness with deep palpation over right groin. Negative psoas, Rovsing, and obturator signs. Results Lab / Micro Data Result Diagrams: 07/12/22 16:00 07/12/22 16:00 Labs: Laboratory Results - last 24 hr 07/12/22 15:45: Urine Color Yellow, Urine Clarity Sl. Cloudy, Urine pH 6.5, Ur Specific [place] 1.020, Urine Protein 30 H, Urine Glucose (UA) Normal, Urine Ketones 15 H, Urine Occult Blood 10 H, Urine Nitrite Negative, Urine Bilirubin 3 H, Urine Urobilinogen 8 H, Ur Leukocyte Esterase 100 H, Urine RBC 0 SEEN, Urine WBC 5-10 SEEN, Ur Squamous Epith Cells 0 SEEN, Calcium Oxalate Crystal 1+, Urine Bacteria 1+, Urine Mucus 0 SEEN 07/12/22 16:00: WBC 6.7, RBC 3.37 L, Hgb 11.0 L, Hct 34.3 L, MCV 101.8 H, MCH 32.6 H, MCHC 32.1, RDW Std Deviation 50.8 H, RDW Coeff of Harinder 13.5, Plt Count 308, MPV 9.3, Immature Gran % (Auto) 0.300, Neut % (Auto) 55.2, Lymph % (Auto) 29.5, [place] % (Auto) 10.9 H, Eos % (Auto) 3.7, Baso % (Auto) 0.4, Absolute Neuts (auto) 3.7, Absolute Lymphs (auto) 1.97, Nucleated RBC % 0 07/12/22 16:00: Sodium 140, Potassium 3.7, Chloride 105, Carbon Dioxide 28.0, Anion Gap 7, BUN 18, Creatinine 0.76, Estim Creat Clear Calc 96.66, Est GFR (MDRD) Af Amer 134, Est GFR (MDRD) Non-Af 110, BUN/Creatinine Ratio 23.7 H, Glucose 131 H, Calcium 9.7, Total Bilirubin 1.80 H, Direct Bilirubin 1.57 H, AST 32, ALT 40, Alkaline Phosphatase 468 H, Total Protein 7.3, Albumin 3.0 L, Globulin 4.3 H, Lipase 159 07/12/22 16:00: Lactic Acid 1.2 Radiology Impression Abdomen/Pelvis CT 07/12/22 15:40 IMPRESSION: 1. Stable biliary stents extending from the right and left hepatic ducts through the common bile duct into the proximal duodenum. Mild decrease in the intrahepatic bile duct dilation since the previous exam. 2. Small nonobstructing stone in the left kidney measuring 3 mm. Electronically Signed: Eliot King MD at 17:22 EST , ADDENDUM: 07/12/221825 IMPRESSION: undefined ADDENDUM: 07/12/221951 IMPRESSION: undefined Assessment & Plan Assessment/Plan (1) Abnormal abdominal CT scan: PLAN: This is a 61-year-old male with a complex past medical history owing to a diagnosis of adenocarcinoma of the gallbladder and cholangiocarcinoma is reportedly metastatic throughout the abdominal cavity who presents with greater than 1 month of generalized abdominal pain that is constant and abnormal CT imaging. Per patient's report he does not have a history of any recent worsening of his discomfort and, if anything, reports that his symptoms have been better. He denies any associated nausea or fevers/chills. However, is concerned daughter reported his symptoms of abdominal pain to his oncologist and urgent outpatient CT imaging was arranged. This was read earlier today is possibly concerning for acute appendicitis within the right inguinal hernia and he was referred to the emergency department for additional evaluation. In the ER he had a CBC without leukocytosis or left shift and CT imaging of the abdomen pelvis was repeated with IV contrast. This was initially read as normal, but on review with radiology they identified dilation of the appendiceal tip and some stranding which they stated was possibly consistent with early acute appendicitis. I held a lengthy conversation with patient regarding the fact that his history, exam, and laboratories did not match well a diagnosis of acute appendicitis, but also shared with him the sensitivity of CT imaging for appendicitis and initially suggested that we proceed with laparoscopic appendectomy. Mr. Johnson was very hesitant to proceed so I offered to discuss the case further with his oncologist Dr. Thornton. On doing so I confirmed patient's history that he had chronic abdominal discomfort which could be explained by progression of his disease despite his immunotherapy. Also at this time I began reviewing patient's most recent CT scan (prior to today) from 06/19/2022. It was on this review that I noted a similar appearance of his appendix with both dilation and stranding at the appendiceal tip. A telephone consult was made to the reading radiologist from the imaging performed today and they agree that there has not been significant change from this previous scan and provided a second addendum. With this development, I shared the update to both patient and Dr. Thornton. (I also shared with patient that his Lux score based on his presentation and work-up comes back to a score of 3 making appendicitis unlikely). Both Mr. Johnson and Dr. Thornton expressed satisfaction with a plan to follow-up with this issue as an outpatient. I have carefully detailed return precautions to Mr. Johnson and he has given his word to return should he develop any acute worsening of his symptoms. Yet at this time, we will plan to follow-up as an outpatient sometime this week to update his clinical status. (2) Abdominal pain: PLAN: Inconsistent with a diagnosis of acute appendicitis. According to Dr. Thornton, his suspicion is that this could represent progression of patient's metastatic cholangiocarcinoma. I do not believe Mr. Johnson is symptomatic from his small right inguinal hernia. I have outlined to him that it was not a dvisable to pursue a repair at the same time as an appendectomy or while undergoing chemotherapy. (3) Adenocarcinoma of gallbladder: PLAN: Metastatic cancer currently under treatment with immunotherapy by oncology, Dr. Thornton. As above, this could be the cause of patient's chronic abdominal pain complaint. Charges/Coding Visit Charges OBSV E&M: 79928 Observ/hosp same date L3
[2022-07-12 20:15] VITALS: BP 103/73; PULSE 99; RESP 16; O2SAT 96
--- NOTE | 2022-07-12 20:20 | ED.RN ---
Patients port flushed with 20 ml normal saline and 10 units of heparin. unable to chart due to not being verified by pharmacy. 2019 10 units heparin given by this RN.
== END 2022-07-12 20:22 | disposition home or self-care (01) ==
PROVIDERS: Nurse Practitioner; Emergency Provider Emergency Medicine; PCP Registered Nurse; Visit Provider Emergency Medicine
DX: R10.31 Right lower quadrant pain (principal); C22.1 Intrahepatic bile duct carcinoma; F17.210 Nicotine dependence, cigarettes, uncomplicated
CPT/HCPCS: 36591; 74177; 80048; 80076; 81001; 83605; 83690; 85025; 96361; 96374; 96375; 99284; J7030; Q9967; A4216; J2405